=== PATIENT | female | born 1960 | race Caucasian/White ===

== ENCOUNTER 2019-10-05 10:25 | Inpatient (IN) | payer MEDICAID, SELFPAY ==
[2019-10-05] VITALS (10 sets, daily range): BP systolic 106–148; BP diastolic 63–82; PULSE 86–104; RESP 16–20; TEMP 36.6–36.9; O2SAT 90–95; BMI 41.5
--- NOTE | 2019-10-05 10:35 | CTR_ITS ---
PROCEDURE INFORMATION: Exam: CT Abdomen And Pelvis With Contrast Exam date and time: 10/05/2019 10:54 AM Age: 59 years old Clinical indication: Abdominal pain; Additional info: Ascities, abdominal pain, esld TECHNIQUE: Imaging protocol: Computed tomography of the abdomen and pelvis with intravenous contrast. Radiation optimization: All CT scans at this facility use at least one of these dose optimization techniques: automated exposure control; mA and/or kV adjustment per patient size (includes targeted exams where dose is matched to clinical indication); or iterative reconstruction. Contrast material: OMNI 300; Contrast volume: 95 ml; Contrast route: INTRAVENOUS (IV); COMPARISON: No relevant prior studies available. RADIATION DOSE METRICS: Total DLP (mGy-cm): 1729.74 FINDINGS: Liver: Lobulated liver consistent with cirrhosis. Gallbladder and bile ducts: The gallbladder has been removed. Pancreas: Normal. No ductal dilation. Spleen: Spleen is enlarged measuring 18.7 cm. Adrenals: There is a 16 mm nonspecific left adrenal nodule. 18 mm nonspecific right adrenal nodule. Kidneys and ureters: Normal. No hydronephrosis. Stomach and bowel: Unremarkable. No obstruction. No mucosal thickening. Appendix: No evidence of appendicitis. Intraperitoneal space: There is a large amount of ascites in the abdomen/pelvis. Vasculature: There are varicosities in the abdomen consistent with portal venous hypertension. Calcified plaque is present within multiple vascular structures. Lymph nodes: Unremarkable. No enlarged lymph nodes. Bladder: Unremarkable as visualized. Reproductive: Unremarkable as visualized. Bones/joints: Unremarkable. No acute fracture. Soft tissues: Soft tissue anasarca. There are benign-appearing soft tissue calcifications. Small fat containing umbilical hernia. There are postoperative changes in the ventral abdominal wall. CT/CT abdomen pelvis w con* [id number] IMPRESSION: 1. Cirrhotic liver with splenomegaly consistent with portal venous hypertension. There is a large amount of ascites in the abdomen and soft tissue anasarca. 2. Nonspecific bilateral adrenal nodules.Consider 12 month follow-up adrenal CT. ([place], ACR White Paper, 2017) Radiation Dose CTDIVOL = (mGy): DLP = 1729.74 (mGy-cm)
--- NOTE | 2019-10-05 10:38 | W.ED.ABDPA2 ---
HPI - Abdominal Pain General: Chief Complaint: Abdominal Pain Stated Complaint: ABD PAIN Time Seen by Provider: 10/05/19 10:35 History of Present Illness: HPI narrative: 59-year-old female patient presents to the emergency department via EMS with 1 to 2-week history of worsening abdominal pain. History of hepatitis C with cirrhosis. 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 Recently relocated to the area and has not established care here. She reports lives with family. Has experienced increased abdominal girth that has not responded to increase Lasix use. She reports nausea with increased abdominal girth. She denies fever chills. Denies diarrhea. MD elicited complaint: abdominal pain Pertinent past history: other (Hepatitis C, cirrhosis) Onset (ago): week(s) (1 to 2 weeks) Pain Consistency: constant Location: Diffuse Severity: moderate Quality: fullness and dull Exacerbating factors: movement Associated Symptoms: Reports nausea, poor appetite and vomiting; Denies chills, coffee ground emesis, dysuria, fever(s) and hematemesis Review of Systems General: Reports: 10 or more systems reviewed and unremarkable except in HPI and below Const: Denies: fever(s), chills or diaphoresis Eyes: Denies: blurry vision or eye redness ENMT: Denies: throat pain, dental pain or disequilibrium Card: Denies: chest pain, palpitations or irregular heart rhythm Resp: Reports: dyspnea; Denies: productive cough, non-productive cough or wheezing GI: Reports: abdominal pain, nausea, vomiting and early satiety; Denies: hematemesis or coffee ground emesis : Denies: difficulty voiding or dysuria Musc: Denies: back pain Skin/Breast: Denies: rash or pruritus Neuro: Denies: headache(s), weakness in extremities or behavioral changes Ryan/Lymph: Denies: easy bruising PFSH ED PFSH: Medical History (Updated 10/05/19 @ 14:54 by Mike Alatorre MD) Cirrhosis of liver COPD (chronic obstructive pulmonary disease) Diabetes Liver abscess via umbilicus Seizure Surgical History (Updated 10/05/19 @ 14:49 by Mike Alatorre MD) History of colonoscopy History of laparoscopic cholecystectomy Hx of appendectomy Family History (Updated 10/05/19 @ 14:50 by Mike Alatorre MD) Other Diabetes Social History (Updated 10/05/19 @ 14:50 by Mike lAatorre MD) Smoking and tobacco status: current every day smoker Alcohol intake: former Substance/Drug Use: never Physical Exam Const: COMMON NORMALS: patient oriented x3 and alert GENERAL APPEARANCE: cooperative and anxious NUTRITIONAL APPEARANCE: obese HENMT: COMMON NORMALS: normocephalic, Normal external nose present and moist oral mucous membranes HEAD & SCALP: normocephalic NOSE: Normal external nose present Eye: COMMON NORMALS: Equal, round and reactive pupils present, EOMs intact bilaterally and negative for conjunctivae normal GENERAL EYE: appearance normal, both eyes and all related structures CONJUNCTIVA: No conjunctivae normal and Yes conjunctival abnormal (Jaundice) SCLERA: scleral abnormal (Jaundice) PUPIL: Yes Equal, round and reactive pupils present Neck/C-Spine: COMMON NORMALS: full ROM and no lymphadenopathy GENERAL: Yes normal visual inspection and Yes trachea midline CERVICAL SPINE: Yes cervical ROM normal Lymph: LYMPHATIC: no lymphadenopathy noted Chest: COMMONS NORMALS: normal inspection of the chest Resp: COMMON NORMALS: normal respiratory effort and clear to auscultation bilaterally AUSCULTATION: clear to auscultation bilaterally Cardio: COMMON NORMALS: regular rhythm, S1 normal heart sound present and S2 normal heart sound present RHYTHM: regular rhythm HEART SOUNDS: S1 normal heart sound present and S2 normal heart sound present GI: INSPECTION: Yes Abdominal wall edema, Yes Anasarca, Yes abdominal distension, Yes Fluid wave present and No GI erythema present AUSCULTATION: Yes Hypoactive bowel sounds present PALPATION: Yes Tenderness to palpation present (GI) (Diffuse) and Yes Hepatomegaly present PERCUSSION: Fluid wave present : COMMON NORMALS: Yes no CVA tenderness BLADDER/KIDNEY EXAM: Yes no CVA tenderness Back/Pelvis: COMMON NORMALS: no CVA tenderness and thoracic and lumbar spine normal to inspection Extremity: COMMON NORMALS: normal to inspection and capillary refill normal Neuro: COMMON NORMALS: patient oriented x3 and no focal motor deficits SENSORIUM/ORIENTATION: Yes alert Psych: COMMON NORMALS: mental status grossly normal, Normal thought process present and cooperative ACTIVITY/MOTOR BEHAVIOR: Yes appropriate eye contact THOUGHT PROCESS: Normal thought process present Skin: COMMON NORMALS: no rashes or lesions noted and turgor normal GENERAL SKIN EXAM: no rashes or lesions noted and turgor normal Course ED course: Case discussed with Dr. Jose Alberto -patient will need admission. Transfer of care for admission orders. Vital Signs: Vital signs: Vital Signs Temperature 98.2 F 10/05/19 15:38 Pulse Rate 86 10/05/19 15:38 Respiratory Rate 20 H 10/05/19 15:38 Blood Pressure 148/75 10/05/19 15:38 Pulse Oximetry 91 10/05/19 15:38 MDM - Abdominal Pain Differential Diagnosis: Differential diagnosis abdominal pain: Likely diverticulitis and pancreatitis Lab Data: Labs: Lab Results 10/05/19 10/05/19 10/05/19 Range/Units 10:46 10:50 10:50 WBC 7.8 (4.0-10.0) 10^3/ uL RBC 4.28 (4.1-5.3) 10^6/u L Hgb 13.0 (11.5-15.3) g/dL Hct 40.7 (37.0-47.0) % MCV 95.1 (81-99) fL MCH 30.4 (28.0-34.0) pg MCHC 31.9 (30.0-36.0) g/dL RDW 15.5 H (12.1-15.1) % Plt Count 82 L (130-400) 10^3/c mm MPV 10.8 H (7.4-10.4) fL Neut % (Auto) 83.0 % Lymph % (Auto) 4.2 % Brewster % (Auto) 9.0 % Eos % (Auto) 2.1 % Baso % (Auto) 0.8 % Neut # (Auto) 6.47 (1.8-7.7) 10^3/u L Lymph # (Auto) 0.3 L (0.8-4.8) 10^3/u L Brewster # (Auto) 0.7 (0.2-0.9) 10^3/u L Eos # (Auto) 0.2 (0.0-0.8) 10^3/u L Baso # (Auto) 0.1 (0.0-0.1) 10^3/u L Nucleated RBC % (a uto) 0 % Nucleated RBCs # 0.0 /100WBC PT (12.1-14.9) SECO NDS INR (0.8-1.2) APTT (23.9-36.7) SECO NDS Sodium (136-145) mmol/L Potassium (3.5-5.1) mmol/L Chloride (98-107) mmol/L Carbon Dioxide (22-29) mmol/L Anion Gap (5-19) BUN (6-20) mg/dL Creatinine (0.5-0.9) mg/dL GFR Calculation (90-130) mL/min Glucose (65-115) mg/dL Calculated Osmolal ity (285-295) mOsm/k g Lactate (0.5-2.2) mmol/L Calcium (8.5-10.5) mg/dL Total Bilirubin (0.15-1.2) mg/dL AST (0-32) U/L ALT (0-33) U/L Alkaline Phosphata se (35-105) IU/L Ammonia 65 H (11-51) umol/L Total Protein (6.6-8.7) g/dL Albumin (3.5-5.2) g/dL Globulin (1.3-4.6) g/dL Lipase (13-60) U/L Urine Color Yellow (Yellow) Urine Appearance Clear (CLEAR) Urine pH 7 (5-7) Ur Specific Gravit y 1.005 (1.005-1.030) Urine Protein Neg (Negative) Urine Glucose (UA) Norm (Normal) Urine Ketones Negative (Negative) Urine Blood Neg (Negative) Urine Nitrate Negative (Negative) Urine Bilirubin Neg (NEGATIVE) Urine Urobilinogen Norm (Negative) mg/dL Ur Leukocyte Jailene ase Negative (Negative) 10/05/19 10/05/19 10/05/19 Range/Units 10:50 10:50 10:50 WBC (4.0-10.0) 10^3/ uL RBC (4.1-5.3) 10^6/u L Hgb (11.5-15.3) g/dL Hct (37.0-47.0) % MCV (81-99) fL MCH (28.0-34.0) pg MCHC (30.0-36.0) g/dL RDW (12.1-15.1) % Plt Count (130-400) 10^3/c mm MPV (7.4-10.4) fL Neut % (Auto) % Lymph % (Auto) % Brewster % (Auto) % Eos % (Auto) % Baso % (Auto) % Neut # (Auto) (1.8-7.7) 10^3/u L Lymph # (Auto) (0.8-4.8) 10^3/u L Brewster # (Auto) (0.2-0.9) 10^3/u L Eos # (Auto) (0.0-0.8) 10^3/u L Baso # (Auto) (0.0-0.1) 10^3/u L Nucleated RBC % (a uto) % Nucleated RBCs # /100WBC PT 18.50 H (12.1-14.9) SECO NDS INR 1.48 H (0.8-1.2) APTT 34.2 (23.9-36.7) SECO NDS Sodium 128 L (136-145) mmol/L Potassium 4.3 (3.5-5.1) mmol/L Chloride 99 (98-107) mmol/L Carbon Dioxide 20 L (22-29) mmol/L Anion Gap 13.3 (5-19) BUN 10 (6-20) mg/dL Creatinine 1.2 H (0.5-0.9) mg/dL GFR Calculation 46.3 L (90-130) mL/min Glucose 203 H (65-115) mg/dL Calculated Osmolal ity 268 L (285-295) mOsm/k g Lactate 2.2 (0.5-2.2) mmol/L Calcium 8.3 L (8.5-10.5) mg/dL Total Bilirubin 5.3 H (0.15-1.2) mg/dL AST 40 H (0-32) U/L ALT 28 (0-33) U/L Alkaline Phosphata se 222 H (35-105) IU/L Ammonia (11-51) umol/L Total Protein 5.7 L (6.6-8.7) g/dL Albumin 2.7 L (3.5-5.2) g/dL Globulin 3.0 (1.3-4.6) g/dL Lipase 27 (13-60) U/L Urine Color (Yellow) Urine Appearance (CLEAR) Urine pH (5-7) Ur Specific Gravit y (1.005-1.030) Urine Protein (Negative) Urine Glucose (UA) (Normal) Urine Ketones (Negative) Urine Blood (Negative) Urine Nitrate (Negative) Urine Bilirubin (NEGATIVE) Urine Urobilinogen (Negative) mg/dL Ur Leukocyte Jailene ase (Negative) Imaging Data ^: CT Abd/Pel: Radiologist's impression: [facility] [address] [place] [address] CT Scan Report Signed Patient: Brenna Reyes #: [id number] : 1960Acct#:[id number] Age/Sex: 59 / FADM Date: 10/05/19 Loc: ERRoom/Bed: Attending Dr: Ordering Provider/Ordering MD: Barb Patton Date of Service: 10/05/19 Procedure(s): CT abdomen pelvis w con* [id number] Accession Number(s): [id number] Report Number: [id number] PROCEDURE INFORMATION: Exam: CT Abdomen And Pelvis With Contrast Exam date and time: 10/05/2019 10:54 AM Age: 59 years old Clinical indication: Abdominal pain; Additional info: Ascities, abdominal pain, esld TECHNIQUE: Imaging protocol: Computed tomography of the abdomen and pelvis with intravenous contrast. Radiation optimization: All CT scans at this facility use at least one of these dose optimization techniques: automated exposure control; mA and/or kV adjustment per patient size (includes targeted exams where dose is matched to clinical indication); or iterative reconstruction. Contrast material: OMNI 300; Contrast volume: 95 ml; Contrast route: INTRAVENOUS (IV); COMPARISON: No relevant prior studies available. RADIATION DOSE METRICS: Total DLP (mGy-cm): 1729.74 FINDINGS: Liver: Lobulated liver consistent with cirrhosis. Gallbladder and bile ducts: The gallbladder has been removed. Pancreas: Normal. No ductal dilation. Spleen: Spleen is enlarged measuring 18.7 cm. Adrenals: There is a 16 mm nonspecific left adrenal nodule. 18 mm nonspecific right adrenal nodule. Kidneys and ureters: Normal. No hydronephrosis. Stomach and bowel: Unremarkable. No obstruction. No mucosal thickening. Appendix: No evidence of appendicitis. Intraperitoneal space: There is a large amount of ascites in the abdomen/pelvis. Vasculature: There are varicosities in the abdomen consistent with portal venous hypertension. Calcified plaque is present within multiple vascular structures. Lymph nodes: Unremarkable. No enlarged lymph nodes. Bladder: Unremarkable as visualized. Reproductive: Unremarkable as visualized. Bones/joints: Unremarkable. No acute fracture. Soft tissues: Soft tissue anasarca. There are benign-appearing soft tissue calcifications. Small fat containing umbilical hernia. There are postoperative changes in the ventral abdominal wall. CT/CT abdomen pelvis w con* [id number] IMPRESSION: 1. Cirrhotic liver with splenomegaly consistent with portal venous hypertension. There is a large amount of ascites in the abdomen and soft tissue anasarca. 2. Nonspecific bilateral adrenal nodules.Consider 12 month follow-up adrenal CT. ([facility] White [facility], 2017) Radiation Dose CTDIVOL = (mGy): DLP = 1729.74 (mGy-cm) Dictated By:Armida Williamson MD Signed By:Armida Williamson MDSigned Date/Time:10/05/19 1150 CXR: Radiologist's impression: [place] [address] XRay Report Signed Patient: Brenna Reyes #: [id number] : 1960Acct#:[id number] Age/Sex: 59 / FADM Date: 10/05/19 [facility]: Attending Dr: Ordering Provider/Ordering MD: Barb Patton Date of Service: 10/05/19 Procedure(s): XR chest 1V portable [id number] Accession Number(s): [id number] Report Number: [id number] PROCEDURE INFORMATION: Exam: XR Chest, 1 View Exam date and time: 10/05/2019 12:18 PM Age: 59 years old Clinical indication: Shortness of breath; Additional info: SOB TECHNIQUE: Imaging protocol: XR of the chest Views: 1 view. COMPARISON: No relevant prior studies available. FINDINGS: Lungs: Unremarkable. No consolidation. Pleural space: Unremarkable. No pleural effusion. No pneumothorax. Heart/Mediastinum: Unremarkable. No cardiomegaly. Bones/joints: Unremarkable. Soft tissues: Heart size not optimally evaluated with a single AP view of the chest. XR/XR chest 1V portable [id number] IMPRESSION: No acute findings. Dictated By:Armida Williamson MD Discharge Plan Discharge Admit Provider: Mike Alatorre Discharge Date/Time: 10/05/19 15:53 Coding Level of Care Code ED Landscape Painter for Chg Fwd Exam Comprehensive
[2019-10-05 11:00] LABS: Add Urine Microscopic? NO
[2019-10-05 11:01] LABS: Basophils # 0.1 10^3/uL (0.0-0.1); Basophils % 0.8 %; Eosinophils # 0.2 10^3/uL (0.0-0.8); Eosinophils % 2.1 %; Hematocrit 40.7 % (37.0-47.0); Lymphocytes # 0.3 10^3/uL (0.8-4.8); Lymphocytes % 4.2 %; Mean Corpuscular HGB Conc 31.9 g/dL (30.0-36.0); Mean Corpuscular Hemoglobin 30.4 pg (28.0-34.0); Mean Corpuscular Volume 95.1 fL (81-99); Mean Platelet Volume 10.8 fL (7.4-10.4); Monocytes # 0.7 10^3/uL (0.2-0.9); Neutrophils # 6.47 10^3/uL (1.8-7.7); Nucleated Red Blood Cells % 0 %; Platelet Count 82 10^3/cmm (130-400); Red Blood Count 4.28 10^6/uL (4.1-5.3); Red Cell Distribution Width 15.5 % (12.1-15.1); White Blood Count 7.8 10^3/uL (4.0-10.0)
[2019-10-05] MEDS: morphine 4 mg/mL SDV 1 mL IVP (11:02)
[2019-10-05] MEDS: iohexol 300 mg/mL 100 mL Btl IV (11:05)
[2019-10-05 11:07] LABS: Bilirubin Urine Neg (NEGATIVE); Blood Urine Neg (Negative); Glucose Urine UA Norm (Normal); Ketones Urine Negative (Negative); Leukocyte Esterase Urine Negative (Negative); Nitrate Urine Negative (Negative); Protein Urine Neg (Negative); Specific Gravity, Urine 1.005 (1.005-1.030); Urine Appearance Clear (CLEAR); Urine Color Yellow (Yellow); Urobilinogen Urine Norm (Negative); pH Urine 7 (5-7)
[2019-10-05 11:11] LABS: INR 1.48 (0.8-1.2)
[2019-10-05 11:12] LABS: Partial Thromboplastin Time 34.2 SECONDS (23.9-36.7)
[2019-10-05 11:15] LABS: Ammonia 65 umol/L (11-51); Lactate (Lactic Acid level) 2.2 mmol/L (0.5-2.2)
[2019-10-05 11:16] LABS: Alanine Aminotransferase 28 U/L (0-33); Albumin Level 2.7 g/dL (3.5-5.2); Alkaline Phosphatase 222 IU/L (35-105); Anion Gap 13.3 (5-19); Aspartate Amino Transferase 40 U/L (0-32); Blood Urea Nitrogen 10 mg/dL (6-20); Calcium 8.3 mg/dL (8.5-10.5); Carbon Dioxide 20 mmol/L (22-29); Chloride 99 mmol/L (98-107); Glomerular Filtration Rate 46.3 mL/min (90-130); Glucose 203 mg/dL (65-115); Lipase 27 U/L (13-60); Osmolality Calculated 268 mOsm/kg (285-295); Potassium 4.3 mmol/L (3.5-5.1); Sodium 128 mmol/L (136-145); Total Bilirubin 5.3 mg/dL (0.15-1.2); Total Protein 5.7 g/dL (6.6-8.7)
--- NOTE | 2019-10-05 12:18 | XRR_ITS ---
PROCEDURE INFORMATION: Exam: XR Chest, 1 View Exam date and time: 10/05/2019 12:18 PM Age: 59 years old Clinical indication: Shortness of breath; Additional info: SOB TECHNIQUE: Imaging protocol: XR of the chest Views: 1 view. COMPARISON: No relevant prior studies available. FINDINGS: Lungs: Unremarkable. No consolidation. Pleural space: Unremarkable. No pleural effusion. No pneumothorax. Heart/Mediastinum: Unremarkable. No cardiomegaly. Bones/joints: Unremarkable. Soft tissues: Heart size not optimally evaluated with a single AP view of the chest. XR/XR chest 1V portable [id number] IMPRESSION: No acute findings.
[2019-10-05] MEDS: HYDROmorphone 1 mg/mL INJ 1 mL 0.5 MG IVP (12:32)
--- NOTE | 2019-10-05 14:43 | PM.HP ---
Providers/Chief Complaint Chief Complaint: ABD PAIN History of Present Illness Kavitha Reyes is a 59 year old female with a past medical history of hepatitis C status post treatment, history of liver cirrhosis, history of alcohol abuse and on recovery, history of insulin-dependent type 2 diabetes mellitus, who presents to [facility] due to complaints of abdominal distention and pain. 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 Patient states that she has not seen a physician in over 6 months, patient states that for her liver cirrhosis, she has been relatively stable, using her Lasix and spironolactone. Patient states over the last 24 hours, she is developed significant abdominal distention, abdominal pain, she states that is never been this bad, she is never had a paracentesis, no fevers, no chills, no nausea, no vomiting, has significant abdominal pain distention, no episodes of confusion. Review of Systems Const: Denies: fever(s), chills, fatigue or malaise Eyes: Denies: change in vision or blurry vision ENMT: Denies: nasal congestion Card: Denies: chest pain or palpitations Resp: Denies: dyspnea, productive cough, non-productive cough or wheezing GI: Reports: abdominal pain; Denies: nausea, vomiting, hematemesis, diarrhea, constipation, hematochezia or melena : Denies: flank pain, dysuria or urinary frequency Musc: Denies: neck pain or back pain Skin/Breast: Denies: rash Neuro: Denies: headache(s), dizziness or vertigo Psych: Denies: anxiety or depression Endo: Denies: polyuria or polydipsia Medications/Allergies Home Medications Medication Instructions Recorded Confirmed Last Taken Type furosemide [Lasix] 40 mg PO DAILY 10/05/19 10/05/19 10/05/19 History hydroxyzine HCl 25 - 50 mg PO BEDTIME 10/05/19 10/05/19 10/04/19 History insulin aspart U-100 [Novolog 20 unit SUBCUT BID 10/05/19 10/05/19 10/05/19 History Flexpen U-100 Insulin] insulin detemir U-100 [Levemir 65 unit SUBCUT BID 10/05/19 10/05/19 10/05/19 History FlexTouch U-100 Insuln] magnesium oxide [MagOx] 400 mg PO DAILY 10/05/19 10/05/19 10/04/19 History ondansetron HCl [Zofran] 4 mg PO Q6H PRN 10/05/19 10/05/19 Unknown History potassium chloride 20 meq PO DAILY 10/05/19 10/05/19 10/05/19 History spironolactone 50 mg PO BID 10/05/19 10/05/19 10/05/19 History tizanidine 2 mg PO BEDTIME 10/05/19 10/05/19 10/04/19 History Allergies Allergy/AdvReac Type Severity Reaction Status Date / Time celecoxib [From Celebrex] Allergy Unknown Verified 10/05/19 10:38 chlorpromazine Allergy Unknown Verified 10/05/19 10:38 [From Thorazine] citalopram [From Celexa] Allergy Unknown Verified 10/05/19 10:38 codeine Allergy Unknown Verified 10/05/19 10:38 ketorolac [From Toradol] Allergy Unknown Verified 10/05/19 10:38 NSAIDS (Non-Steroidal Allergy Unknown Verified 10/05/19 10:38 Anti-Inflamma tramadol Allergy ADR-Halluci Verified 10/05/19 10:38 nating PFSH Acute PFSH: Medical History (Updated 10/05/19 @ 14:54 by Mike Alatorre MD) Cirrhosis of liver COPD (chronic obstructive pulmonary disease) Diabetes Liver abscess via umbilicus Seizure Surgical History (Updated 10/05/19 @ 14:49 by Mike Alatorre MD) History of colonoscopy History of laparoscopic cholecystectomy Hx of appendectomy Family History (Updated 10/05/19 @ 14:50 by Mike Alatorre MD) Other Diabetes Social History (Updated 10/05/19 @ 14:50 by Mike Alatorre MD) Smoking and tobacco status: current every day smoker Alcohol intake: former Substance/Drug Use: never Vitals/I&O/Wt Last Vital Signs Temp 98.5 F 10/05/19 10:35 Pulse 104 H 10/05/19 10:35 Resp 18 10/05/19 12:32 BP 143/63 10/05/19 10:35 Pulse Ox 93 10/05/19 10:35 Weight last 48 hrs Weight 113.398 kg Physical Exam Const: COMMON NORMALS: no acute distress and patient oriented x3 GENERAL APPEARANCE: cooperative and comfortable HENMT: COMMON NORMALS: normocephalic HEAD & SCALP: normocephalic Eye: COMMON NORMALS: Equal, round and reactive pupils present, EOMs intact bilaterally and no papilledema GENERAL EYE: appearance normal, both eyes and all related structures PUPIL: Yes Equal, round and reactive pupils present DIRECT OPHTHALMOSCOPY: Yes no papilledema Neck/C-Spine: COMMON NORMALS: full ROM, no lymphadenopathy, no JVD and Thyroid normal THYROID: Thyroid normal Lymph: LYMPHATIC: no lymphadenopathy noted Resp: COMMON NORMALS: normal respiratory effort, No retractions, No use of accessory muscles and clear to auscultation bilaterally AUSCULTATION: clear to auscultation bilaterally Cardio: COMMON NORMALS: no JVD, regular rate, regular rhythm, S1 normal heart sound present, S2 normal heart sound present, No gallops present (Cardio), No clicks present (Cardio) and No murmurs present (Cardio) RATE: regular rate RHYTHM: regular rhythm HEART SOUNDS: S1 normal heart sound present and S2 normal heart sound present GI: COMMON NORMALS: non-tender and No hepatosplenomegaly present INSPECTION: Yes normal to inspection, Yes Abdominal wall edema and Yes abdominal distension AUSCULTATION: Yes normoactive bowel sounds PALPATION: Yes Soft to palpation, No Tenderness to palpation present (GI), No Guarding due to palpation present (GI), No Rigid due to palpation, No No hepatosplenomegaly present and No Rebound tenderness present PERCUSSION: tympanic to percussion Extremity: COMMON NORMALS: normal to inspection, full ROM and no pedal edema NARRATIVE EXTREMITY EXAM: Digital clubbing Neuro: COMMON NORMALS: patient oriented x3, CN's II-XII intact bilaterally, moves all extremities and no focal motor deficits Psych: COMMON NORMALS: mental status grossly normal, Normal thought process present and cooperative THOUGHT PROCESS: Normal thought process present Data : 10/05/19 10:50 10/05/19 10:50 A&P Assessment and plan (1) Cirrhosis of liver: -Patient has been treated, and cured of hepatitis C, history of alcohol abuse in the past, sober for many years -CT scan abdomen and plevis shows Cirrhotic liver with splenomegaly consistent with portal venous hypertension. There is a large amount of ascites in the abdomen and soft tissue anasarca. -Ammonia level 65, bili 5.3, sodium 128, platelet count 82 -Patient has seen transplant physician at [facility], not sure if she is on the transplant list -Now presents with abdominal pain, distention, concerning for large liver ascites Plan: -Patient needs a paracentesis, however we do not have interventional radiology, will plan on consulting interventional radiology tomorrow morning for paracentesis -I feel that the clinical suspicion for spontaneous bacterial peritonitis is low, but she does have abdominal pain and distention -Will hold off on antibiotic treatment, unless something changes the next 24 hours, will await for paracentesis culture, Gram stain, LDH before initiating antibiotics if required -Continue Lasix and spironolactone -Full code SCDs for DVT prophylaxis -Patient will require local primary care physician Status: Acute (2) Thrombocytopenia: -Platelet count 82,000, likely secondary to liver cirrhosis Status: Acute (3) Hyponatremia: -Likely related to liver cirrhosis, hypovolemic hyponatremia Status: Acute (4) Hyperbilirubinemia: -Bili 5.3, likely related to liver cirrhosis Status: Acute (5) Hyperammonemia: -Related to liver cirrhosis, ammonia levels 65 -Start lactulose Status: Acute (6) Portal hypertension: Status: Acute (7) Insulin dependent type 2 diabetes mellitus: -Patient has not been using any insulin therapy for the last 6 months -Start on low-dose sliding scale, determine insulin needs based on that Status: Acute (8) COPD (chronic obstructive pulmonary disease): Status: Acute (9) Ascites of liver: Status: Acute Attestations Medical Necessity Statement*: Patient requires hospitalization, outpatient with observation, for liver cirrhosis, ascites, concerns for SBP Coding Level of Care Code Acute Obstetrics Gyn Physician for [facility] Fwd Diagnoses Cirrhosis of liver K74.60 Thrombocytopenia D69.6 Hyponatremia E87.1 Hyperbilirubinemia E80.6 Hyperammonemia E72.20 Portal hypertension K76.6 Insulin dependent type 2 diabetes mellitus E11.9; Z79.4 COPD (chronic obstructive pulmonary disease) J44.9 Ascites of liver R18.8
[2019-10-05 17:00] LABS: Procalcitonin 0.09 ng/mL (0-0.5)
[2019-10-05 17:01] LABS: Thyroid Stimulating Hormone 8.24 uIU/mL (0.27-4.20)
[2019-10-05] MEDS: spironolactone 25 mg Tablet 50 MG PO (17:02)
[2019-10-05] MEDS: lactulose oral liq 20 gm/30 mL UDC PO (17:02)
[2019-10-05] MEDS: morphine 4 mg/mL SDV 1 mL 2 MG IVP ×2 (17:03→21:24)
[2019-10-05 17:11] LABS: C Reactive Protein 27.6 mg/L (0.0-4.9)
[2019-10-05] MEDS: hyDROXYzine 25 mg Capsule PO (21:28)
[2019-10-05] MEDS: tizanidine 4 mg Tablet 2 MG PO (21:28)
[2019-10-06] VITALS (11 sets, daily range): BP systolic 91–131; BP diastolic 56–74; PULSE 70–92; RESP 16–22; TEMP 36.6–37.1; O2SAT 90–98
[2019-10-06 03:40] LABS: Basophils # 0.1 10^3/uL (0.0-0.1); Basophils % 0.5 %; Eosinophils # 0.3 10^3/uL (0.0-0.8); Eosinophils % 3.3 %; Hematocrit 33.9 % (37.0-47.0); Lymphocytes # 0.4 10^3/uL (0.8-4.8); Lymphocytes % 4.7 %; Mean Corpuscular HGB Conc 32.4 g/dL (30.0-36.0); Mean Corpuscular Hemoglobin 30.9 pg (28.0-34.0); Mean Corpuscular Volume 95.2 fL (81-99); Mean Platelet Volume 10.5 fL (7.4-10.4); Monocytes # 0.8 10^3/uL (0.2-0.9); Monocytes % 8.5 %; Neutrophils # 7.69 10^3/uL (1.8-7.7); Neutrophils % 81.9 %; Nucleated Red Blood Cells % 0 %; Platelet Count 68 10^3/cmm (130-400); Red Blood Count 3.56 10^6/uL (4.1-5.3); Red Cell Distribution Width 15.6 % (12.1-15.1); White Blood Count 9.4 10^3/uL (4.0-10.0)
[2019-10-06 03:50] LABS: INR 1.71 (0.8-1.2)
[2019-10-06 04:01] LABS: Alanine Aminotransferase 24 U/L (0-33); Albumin Level 2.5 g/dL (3.5-5.2); Alkaline Phosphatase 169 IU/L (35-105); Anion Gap 9.7 (5-19); Aspartate Amino Transferase 32 U/L (0-32); Blood Urea Nitrogen 10 mg/dL (6-20); Calcium 7.5 mg/dL (8.5-10.5); Carbon Dioxide 22 mmol/L (22-29); Chloride 100 mmol/L (98-107); Globulin 2.5 g/dL (1.3-4.6); Glomerular Filtration Rate 64.5 mL/min (90-130); Glucose 161 mg/dL (65-115); Magnesium 1.8 mg/dL (1.7-2.3); Osmolality Calculated 263 mOsm/kg (285-295); Phosphorus 2.9 mg/dL (2.5-4.5); Potassium 4.7 mmol/L (3.5-5.1); Sodium 127 mmol/L (136-145); Total Bilirubin 5.3 mg/dL (0.15-1.2)
[2019-10-06 04:23] LABS: Estmated Average Glucose 111; Hemoglobin A1C 5.5 % (4.0-6.0)
[2019-10-06] MEDS: lactulose oral liq 20 gm/30 mL UDC PO ×2 (06:29→11:14)
[2019-10-06] MEDS: magnesium oxide 400 mg tablet PO (08:31)
[2019-10-06] MEDS: potassium chloride ER 10 mEq Tablet 20 MEQ PO (08:31)
[2019-10-06] MEDS: FUROsemide 40 mg Tablet PO (08:31)
[2019-10-06] MEDS: spironolactone 25 mg Tablet 50 MG PO ×2 (08:32→17:24)
[2019-10-06] MEDS: morphine 4 mg/mL SDV 1 mL 2 MG IVP ×2 (10:49→17:48)
--- NOTE | 2019-10-06 11:57 | PC.RESP ---
Smoking Cessation and Pulmonary Rehab information sent to patient.
--- NOTE | 2019-10-06 13:15 | US_ITS ---
WS: [id number] ULTRASOUND-GUIDED THERAPEUTIC AND DIAGNOSTIC PARACENTESIS Procedure, risks, and complications have been explained to the patient. Consent is obtained. Utilizing aseptic technique and 1% buffered lidocaine, a small dermatome was made through which a 5 F rench Yueh catheter was inserted. Approximately 4100 ml of cloudy yellow peritoneal fluid was obtaine d without difficulty. No complications encountered. Specimen collected for analysis as requested. US/US paracentesis abd w [id number] IMPRESSION: Uncomplicated paracentesis yielding 4100 ml of peritoneal fluid. Specimen collected for analysis as requested.
--- NOTE | 2019-10-06 13:15 | PM.PN ---
Subjective Subjective: Interval history: yesetrday's notes reveiwed, IR Paracentesis has been ordered. Medications: Reviewed: Yes Vitals/I&O/Wt Last Vital Signs Temp 98.1 F 10/06/19 11:25 Pulse 90 10/06/19 11:25 Resp 20 H 10/06/19 11:25 BP 118/62 10/06/19 11:25 Pulse Ox 94 10/06/19 11:25 10/05/19 10/06/19 10/06/19 22:59 06:59 14:59 Intake Total 800 / 800 Output Total 300 / 300 Balance 500 / 500 Weight last 48 hrs Weight 113.398 kg Physical Exam Narrative: EXAM NARRATIVE: GEN: Awake, alert and oriented, no acute distress CVS: S1S2 N RS: CTA B/L except crackles over RUL Abd: grossly distended DIRECTOR OF DANCE: no focal neuro deficits Data : 10/06/19 03:07 10/06/19 03:07 A&P Assessment and plan (1) Cirrhosis of liver: -Patient has been treated, and cured of hepatitis C, history of alcohol abuse in the past, sober for many years -CT scan abdomen and plevis shows Cirrhotic liver with splenomegaly consistent with portal venous hypertension. There is a large amount of ascites in the abdomen and soft tissue anasarca. Ordered for IR paracentesis today -Ammonia level 65, bili 5.3, sodium 128, platelet count 82 -Patient has seen transplant physician at [facility], not sure if she is on the transplant list low suspicion for SBP -Will hold off on antibiotic treatment -Continue Lasix and spironolactone -Full code SCDs for DVT prophylaxis -Patient will require local primary care physician, will check If Dr. fregoso available to take on care for hep C and cirrhosis Status: Acute (2) Thrombocytopenia: -Platelet count 82,000, likely secondary to liver cirrhosis Status: Acute (3) Hyponatremia: -Likely related to liver cirrhosis, hypovolemic hyponatremia Status: Acute (4) Hyperbilirubinemia: -Bili 5.3, likely related to liver cirrhosis Status: Acute (5) Hyperammonemia: -Related to liver cirrhosis, ammonia levels 65 -Start lactulose Status: Acute (6) Portal hypertension: Status: Acute (7) Insulin dependent type 2 diabetes mellitus: -Patient has not been using any insulin therapy for the last 6 months -Start on low-dose sliding scale, determine insulin needs based on that Status: Acute (8) COPD (chronic obstructive pulmonary disease): Status: Acute (9) Ascites of liver: Status: Acute Attestations Medical Necessity Statement*: awaiting IR paracentesis Coding Level of Care Code Acute Sole Molding Machine Operator for [facility] Fwd Diagnoses Cirrhosis of liver K74.60 Thrombocytopenia D69.6 Hyponatremia E87.1 Hyperbilirubinemia E80.6 Hyperammonemia E72.20 Portal hypertension K76.6 Insulin dependent type 2 diabetes mellitus E11.9; Z79.4 COPD (chronic obstructive pulmonary disease) J44.9 Ascites of liver R18.8
[2019-10-06 14:39] LABS: Free T4 Free Thyroxine 1.02 ng/dL (0.82-1.77); T3 Free 2.6 PG/ML (2.0-4.4)
[2019-10-06 15:31] LABS: Body Fluid Polynuclear #Cells 3.508 10^3/uL; Body Fluid WBC 4020 /uL; Monocytes # Body Fluid 0.512 10^3/uL; RBC, Body Fluid 0 10^3/uL (0-0)
[2019-10-06 15:54] LABS: Apprearance, Body Fluid CLOUDY (CLEAR); Color, Body Fluid PALE YELLOW (PALE YELLOW); PATH Referral YES
[2019-10-06 16:22] LABS: Albumin Body Fluid 0.3 g/dL; Fluid Alkaline Phos. 20 IU/L; Total Protein Body Fluid 1 g/dL
[2019-10-06 16:23] LABS: Amylase Body Fluid 10 U/L; Cholesterol Body Fluid 4 mg/dL (0-200); LDH Body Fluid 54 U/L; Triglycerides Body Fluid 58 mg/dL (0-150); Uric Acid Body Fluid 5 mg/dL
--- NOTE | 2019-10-06 17:12 | PC.OT ---
OT Note: OT screen completed. Pt bed mobility, transfer to toilet with walker, grooming, and toileting where mod I to independent at this time. Pt lives at home with friends. OT not needed at this time.
[2019-10-06] MEDS: tizanidine 4 mg Tablet 2 MG PO (22:26)
[2019-10-06] MEDS: hyDROXYzine 25 mg Capsule PO (22:27)
[2019-10-07] VITALS (9 sets, daily range): BP systolic 91–130; BP diastolic 53–73; PULSE 64–88; RESP 16–22; TEMP 36.7–37; O2SAT 90–96
[2019-10-07 04:49] LABS: Basophils % 0.4 %; Eosinophils # 0.3 10^3/uL (0.0-0.8); Eosinophils % 3.4 %; Hematocrit 33.2 % (37.0-47.0); Hemoglobin 10.7 g/dL (11.5-15.3); Lymphocytes # 0.5 10^3/uL (0.8-4.8); Lymphocytes % 5.9 %; Mean Corpuscular HGB Conc 32.2 g/dL (30.0-36.0); Mean Corpuscular Hemoglobin 30.9 pg (28.0-34.0); Mean Platelet Volume 10.7 fL (7.4-10.4); Monocytes # 0.8 10^3/uL (0.2-0.9); Monocytes % 9.1 %; Neutrophils # 7.17 10^3/uL (1.8-7.7); Neutrophils % 80.2 %; Nucleated Red Blood Cells % 0 %; Platelet Count 66 10^3/cmm (130-400); Red Blood Count 3.46 10^6/uL (4.1-5.3); Red Cell Distribution Width 15.5 % (12.1-15.1); White Blood Count 8.9 10^3/uL (4.0-10.0)
[2019-10-07 05:24] LABS: Alanine Aminotransferase 21 U/L (0-33); Albumin Level 2.4 g/dL (3.5-5.2); Alkaline Phosphatase 160 IU/L (35-105); Anion Gap 10.6 (5-19); Aspartate Amino Transferase 20 U/L (0-32); Blood Urea Nitrogen 14 mg/dL (6-20); Calcium 7.7 mg/dL (8.5-10.5); Carbon Dioxide 20 mmol/L (22-29); Chloride 99 mmol/L (98-107); Globulin 2.5 g/dL (1.3-4.6); Glomerular Filtration Rate 64.5 mL/min (90-130); Glucose 183 mg/dL (65-115); Magnesium 1.9 mg/dL (1.7-2.3); Osmolality Calculated 261 mOsm/kg (285-295); Phosphorus 2.6 mg/dL (2.5-4.5); Potassium 4.6 mmol/L (3.5-5.1); Sodium 125 mmol/L (136-145); Total Bilirubin 5.7 mg/dL (0.15-1.2); Total Protein 4.9 g/dL (6.6-8.7)
[2019-10-07] MEDS: morphine 4 mg/mL SDV 1 mL 2 MG IVP (08:20)
[2019-10-07] MEDS: potassium chloride ER 10 mEq Tablet 20 MEQ PO (08:24)
[2019-10-07] MEDS: FUROsemide 40 mg Tablet PO (08:24)
[2019-10-07] MEDS: magnesium oxide 400 mg tablet PO (08:24)
[2019-10-07] MEDS: spironolactone 25 mg Tablet 50 MG PO ×2 (08:24→17:28)
--- NOTE | 2019-10-07 15:10 | P.PN_ITS ---
Subjective Subjective: Interval history: Patient complains of worsening abdominal pain today. States that he is back in spasmodic pain. Underwent therapeutic centesis yesterday. WBC count is at greater than 4000. Gram stain thus far without any organisms noted. Medications: Reviewed: Yes Vitals/I&O/Wt Last Vital Signs Temp 98.0 F 10/07/19 11:34 Pulse 73 10/07/19 11:34 Resp 22 H 10/07/19 11:34 BP 117/71 10/07/19 11:34 Pulse Ox 91 10/07/19 11:34 10/07/19 10/07/19 10/07/19 06:59 14:59 22:59 Intake Total 120 / 1140 720 / 720 Balance 120 / 1140 720 / 720 Physical Exam Narrative: EXAM NARRATIVE: GEN: Awake, alert and oriented, no acute distress CVS: S1S2 N RS: CTA B/L Abd: Soft, grossly distended with several striate. Appears somewhat improved compared to yesterday. However today complains of discomfort to palpation. OB SCRUB TECH: no focal neuro deficits Data : 10/07/19 04:25 10/07/19 04:25 Micro: Microbiology 10/06/19 14:15 Gram Stain - Final Peritoneal Fluid A&P Assessment and plan (1) Cirrhosis of liver: -Patient has been treated for hepatitis C. Unsure of how exactly she was treated. History of alcohol abuse in the past, sober for many years. HCVRNA with a.m. labs -CT scan abdomen and plevis shows Cirrhotic liver with splenomegaly consistent with portal venous hypertension. There is a large amount of ascites in the abdomen and soft tissue anasarca. Ordered for IR paracentesis yesterday with removal of 4 L of fluid. -WBC count from the fluid significant at 4000. Given that she is complaining of some increased abdominal pain today, we will go ahead and start her on IV antibiotics for presumptive SBP. -Ammonia level 65, bili 5.3, sodium 128, platelet count 82 -Patient has seen transplant physician at [facility], not sure if she is on the transplant list low suspicion for SBP -Continue Lasix and spironolactone -States takes hydrocodone at home for the pain, will start here today. -Full code SCDs for DVT prophylaxis -Patient will require local primary care physician, follow-up has been arranged with Dr. Beckwith. Status: Acute (2) Thrombocytopenia: -Platelet count 82,000, likely secondary to liver cirrhosis Status: Acute (3) Hyponatremia: -Likely related to liver cirrhosis, hypovolemic hyponatremia Status: Acute (4) Hyperbilirubinemia: -Bili 5.3, likely related to liver cirrhosis Status: Acute (5) Hyperammonemia: -Related to liver cirrhosis, ammonia levels 65 -Start lactulose Status: Acute (6) Portal hypertension: Status: Acute (7) Insulin dependent type 2 diabetes mellitus: -Patient has not been using any insulin therapy for the last 6 months -Start on low-dose sliding scale, determine insulin needs based on that Status: Acute (8) COPD (chronic obstructive pulmonary disease): Status: Acute (9) Ascites of liver: Status: Acute Attestations Medical Necessity Statement*: Increased abdominal pain, start treatment for SBP presumptively. Coding Level of Care Code Acute Liquor Gallery Operator for [facility] Fwd Diagnoses Cirrhosis of liver K74.60 Thrombocytopenia D69.6 Hyponatremia E87.1 Hyperbilirubinemia E80.6 Hyperammonemia E72.20 Portal hypertension K76.6 Insulin dependent type 2 diabetes mellitus E11.9; Z79.4 COPD (chronic obstructive pulmonary disease) J44.9 Ascites of liver R18.8
[2019-10-07] MEDS: cefTRIAXone 1,000 MG in sodium chloride 0.9% (plus) 50 ML 100 MG IV (15:31)
[2019-10-07] MEDS: HYDROcodone-acetaminophen 5-325 mg Tablet 1 TAB PO ×2 (15:36→22:31)
--- NOTE | 2019-10-07 18:47 | PC.NURSE ---
End of Shift report. Patient is A&Ox3. Respirations even and non-labored on room air. Patient was up for discharge today but was having to much pain. Patient had 4 liters of fluid removed from her stomach yesterday to which the white count is over 4,000 and she was started on Rocephin today. Patient is now asking Hydrocodone for her pain. Patient is possibly going to be discharged tomorrow.
[2019-10-07] MEDS: hyDROXYzine 25 mg Capsule PO (22:31)
[2019-10-07] MEDS: tizanidine 4 mg Tablet 2 MG PO (22:31)
[2019-10-08] VITALS: BP 94/61; PULSE 71; RESP 16; TEMP 37.1; O2SAT 91
[2019-10-08 04:00] VITALS: BP 86/55; PULSE 54; RESP 20; TEMP 37; O2SAT 91
[2019-10-08 04:57] LABS: Basophils # 0.1 10^3/uL (0.0-0.1); Basophils % 0.8 %; Eosinophils # 0.4 10^3/uL (0.0-0.8); Eosinophils % 4.7 %; Hematocrit 31.1 % (37.0-47.0); Hemoglobin 10.2 g/dL (11.5-15.3); Lymphocytes # 0.5 10^3/uL (0.8-4.8); Lymphocytes % 7.3 %; Mean Corpuscular HGB Conc 32.8 g/dL (30.0-36.0); Mean Corpuscular Volume 94.5 fL (81-99); Mean Platelet Volume 10.8 fL (7.4-10.4); Monocytes # 0.6 10^3/uL (0.2-0.9); Monocytes % 8.4 %; Neutrophils % 77.4 %; Nucleated Red Blood Cells % 0 %; Platelet Count 65 10^3/cmm (130-400); Red Blood Count 3.29 10^6/uL (4.1-5.3); Red Cell Distribution Width 15.7 % (12.1-15.1); White Blood Count 7.4 10^3/uL (4.0-10.0)
[2019-10-08 05:23] LABS: Alanine Aminotransferase 18 U/L (0-33); Albumin Level 2.2 g/dL (3.5-5.2); Alkaline Phosphatase 148 IU/L (35-105); Anion Gap 11.8 (5-19); Aspartate Amino Transferase 18 U/L (0-32); Blood Urea Nitrogen 18 mg/dL (6-20); Calcium 7.3 mg/dL (8.5-10.5); Carbon Dioxide 22 mmol/L (22-29); Chloride 97 mmol/L (98-107); Globulin 2.4 g/dL (1.3-4.6); Glomerular Filtration Rate 51.2 mL/min (90-130); Glucose 199 mg/dL (65-115); Magnesium 1.8 mg/dL (1.7-2.3); Osmolality Calculated 264 mOsm/kg (285-295); Phosphorus 2.9 mg/dL (2.5-4.5); Potassium 4.8 mmol/L (3.5-5.1); Sodium 126 mmol/L (136-145); Total Bilirubin 3.5 mg/dL (0.15-1.2); Total Protein 4.6 g/dL (6.6-8.7)
[2019-10-08 07:33] VITALS: BP 93/54; PULSE 58; RESP 18; TEMP 36.9; O2SAT 92
[2019-10-08] MEDS: FUROsemide 40 mg Tablet PO (09:15)
[2019-10-08] MEDS: magnesium oxide 400 mg tablet PO (09:15)
[2019-10-08] MEDS: potassium chloride ER 10 mEq Tablet 20 MEQ PO (09:15)
[2019-10-08] MEDS: spironolactone 25 mg Tablet 50 MG PO (09:15)
[2019-10-08] MEDS: HYDROcodone-acetaminophen 5-325 mg Tablet 1 TAB PO ×2 (09:17→13:07)
[2019-10-08 11:14] VITALS: BP 108/60; PULSE 72; RESP 18; TEMP 36.3; O2SAT 94
--- NOTE | 2019-10-08 14:32 | P.DS_ITS ---
Discharge Providers Date of Admission: 10/07/19 13:15 Date of Discharge: October 08, 2019 Attending Provider at Admission: Mike Alatorre MD Attending Provider at Discharge: Stephanie Lock MD Diagnoses at Discharge Discharge Diagnosis (1) Cirrhosis of liver: Status: Acute (2) Thrombocytopenia: Status: Acute (3) Hyponatremia: Status: Acute (4) Hyperbilirubinemia: Status: Acute (5) Hyperammonemia: Status: Acute (6) Portal hypertension: Status: Acute (7) Insulin dependent type 2 diabetes mellitus: Status: Acute (8) COPD (chronic obstructive pulmonary disease): Status: Acute (9) Ascites of liver: Status: Acute Reason for Visit Reason for Visit: ABD PAIN Hospital Course Discharge Summary: Kavitha Reyes is a 59 year old female with a past medical history of hepatitis C status post treatment, history of liver cirrhosis, history of alcohol abuse and on recovery, history of insulin-dependent type 2 diabetes mellitus, who presented to [facility] due to complaints of abdominal distention and pain. Patient states that she has not seen a physician in over 6 months, patient states that for her liver cirrhosis, she has been relatively stable, using her Lasix and spironolactone. Patient states over the last 24 hours, she is developed significant abdominal distention, abdominal pain. She underwent US guided paracentesis with removal of >4L of peritoneal fluid. Pain did improve with the procdure, however continued to have significant tenderness and discomfort to palpation. Cell count on ascitic fluid noted to elevated, though gram stain and cx remained negatively. She is presumptively being treated for SBP with iv ceftriaxone , transitioned to po ciprofloxacin on discharge. F/up has been arranged with new PCP Dr. Beckwith. She feels improved on day of discharge. requested prescription for hydrocodone, states she was previously seeing pain management in [place] and had a contract, would like referral to pain clinic here once established with PCP. Physical Exam Narrative: EXAM NARRATIVE: GEN: Awake, alert and oriented, no acute distress CVS: S1S2 N RS: CTA B/L Abd: Soft, nt/nd , bs+ STAVE LOG CUT OFF SAW OPERATOR: no focal neuro deficits Discharge Data Data Completed and Pending: Completed Studies During Hospitalization Category Date Time Status CT abdomen pelvis w con* [id number] Urge nt Cat Scan 10/05/19 10:35 Completed XR chest 1V wander ble [id number] Stat Exams 10/05/19 12:18 Com[place] bd w [id number] Routine Ultrasound 10/06/19 13:15 Completed Pending at discharge Category Date Time Status Anaerobic Culture Routine Lab 10/05/19 16:15 Results Body Fluid Cultur e & GS Routine Lab 10/05/19 16:15 Results Hepatitis C Genot ype RNA AM LABS Lab 10/08/19 04:32 Received Hepatitis C RNA V iral Load Qnt AM L ABS Lab 10/08/19 04:32 Received Mycobacteria, Cul ture w/Fluor Routi ne Lab 10/05/19 16:15 Received Labs from last 24 hours 10/08/19 10/08/19 10/08/19 04:32 04:32 04:32 WBC 7.4 RBC 3.29 L Hgb 10.2 L Hct 31.1 L MCV 94.5 MCH 31.0 MCHC 32.8 RDW 15.7 H Plt Count 65 L MPV 10.8 H Neut % (Auto) 77.4 Lymph % (Auto) 7.3 Crook % (Auto) 8.4 Eos % (Auto) 4.7 Baso % (Auto) 0.8 Neut # (Auto) 5.70 Lymph # (Auto) 0.5 L Crook # (Auto) 0.6 Eos # (Auto) 0.4 Baso # (Auto) 0.1 Nucleated RBC % (a uto) 0 Nucleated RBCs # 0.0 Sodium 126 L Potassium 4.8 Chloride 97 L Carbon Dioxide 22 Anion Gap 11.8 BUN 18 Creatinine 1.1 H GFR Calculation 51.2 L Glucose 199 H Calculated Osmolal ity 264 L Calcium 7.3 L Phosphorus 2.9 Magnesium 1.8 Total Bilirubin 3.5 H AST 18 ALT 18 Alkaline Phosphata se 148 H Total Protein 4.6 L Albumin 2.2 L Globulin 2.4 HCV RNA (PCR) IUs/ ml HCV RNA (PCR) IU l og10 Hep C Genotype (PC R) Pending 10/08/19 04:32 WBC RBC Hgb Hct MCV MCH MCHC RDW Plt Count MPV Neut % (Auto) Lymph % (Auto) Crook % (Auto) Eos % (Auto) Baso % (Auto) Neut # (Auto) Lymph # (Auto) Crook # (Auto) Eos # (Auto) Baso # (Auto) Nucleated RBC % (a uto) Nucleated RBCs # Sodium Potassium Chloride Carbon Dioxide Anion Gap BUN Creatinine GFR Calculation Glucose Calculated Osmolal ity Calcium Phosphorus Magnesium Total Bilirubin AST ALT Alkaline Phosphata se Total Protein Albumin Globulin HCV RNA (PCR) IUs/ ml Pending HCV RNA (PCR) IU l og10 Pending Hep C Genotype (PC R) Vitals: Last Vital Signs Temp 97.3 F L 10/08/19 11:14 Pulse 72 10/08/19 11:14 Resp 18 10/08/19 11:14 BP 108/60 10/08/19 11:14 Pulse Ox 94 10/08/19 11:14 Discharge Plan Discharge Patient Disposition: Home Condition: Stable Prescriptions: New Cipro 500 mg tablet 500 mg PO BID 4 Days Qty: 8 RF: 0 hydrocodone-acetaminophen 10-325 mg tablet 1 tab PO BID PRN (Reason: pain) 7 Days Qty: 14 RF: 0 Continued Lasix 40 mg Tablet 40 mg PO DAILY RF: 0 tizanidine 2 mg Tablet 2 mg PO BEDTIME RF: 0 Zofran 4 mg Tablet 4 mg PO Q6H PRN (Reason: Nausea) RF: 0 MagOx 400 mg (241.3 mg magnesium) Tablet 400 mg PO DAILY RF: 0 hydroxyzine HCl 25 mg Tablet 25 - 50 mg PO BEDTIME RF: 0 spironolactone 50 mg Tablet 50 mg PO BID RF: 0 Novolog Flexpen U-100 Insulin 100 unit/mL (3 mL) Insulin Pen 20 unit SUBCUT BID RF: 0 Levemir FlexTouch U-100 Insuln 100 unit/mL (3 mL) Insulin Pen 65 unit SUBCUT BID RF: 0 potassium chloride 20 mEq Tablet Extended Release 20 meq PO DAILY RF: 0 Discharge Orders: Discharge Order (Routine); Ordered 10/08/19 Ordered By: Stephanie Lock Referrals: Alex Beckwith MD [Physician] - 10/14/19 10:45 am (You have an appointment on October 13 at 10:45am) Discharge Diet: Usual diet Discharge Activity: Resume usual activity Patient Instructions: Ciprofloxacin (By mouth), Hydrocodone/Acetaminophen (By mouth), Hyponatremia (GEN), Abdominal Paracentesis (DC) Discharge Date/Time: 10/08/19 16:20 Discharge Attestations Time Spent in Discharge Care*: greater than 30 min Specific Discharge Activities: Specific discharge activities: educating patient, discussing with case fitter/social workers/dc planners, documenting/other paperwork and evaluating patient/reviewing data Quality Metrics Clinical Quality Measures During this hospital stay, did patient experience: None Coding Level of Care Code Acute Medical Technical Writer for [facility] Fwd Diagnoses Cirrhosis of liver K74.60 Thrombocytopenia D69.6 Hyponatremia E87.1 Hyperbilirubinemia E80.6 Hyperammonemia E72.20 Portal hypertension K76.6 Insulin dependent type 2 diabetes mellitus E11.9; Z79.4 COPD (chronic obstructive pulmonary disease) J44.9 Ascites of liver R18.8
[2019-10-08 15:03] VITALS: BP 108/60; PULSE 72; RESP 18; TEMP 36.3; O2SAT 94
[2019-10-08 15:12] VITALS: BP 105/64; PULSE 63; RESP 18; TEMP 36.7; O2SAT 95
--- NOTE | 2019-10-08 16:15 | PC.NURSE ---
Patient discharged at this time. IV removed intact. Patient verbalized understanding of discharge medication and follow up appointment. Patient is A&Ox3. Respirations even and non-labored on room air.
--- NOTE | 2019-10-08 16:20 | PC.NURSE ---
Patient's Medicaid transport ride is here. Medications from [facility] are not here yet. Asked Medicaid transport to drive through [facility] pharmacy to orange picking supervisor patient medications as that way the delay getting her to the ride. Called [facility] pharmacy to make sure that patient did orange picking supervisor her medications and she did.
[2019-10-10 13:44] LABS: HEP C RNA Viral Load Quant <1.18 NOT DETECTED Log IU/mL (NOT DETECTED); HEP C RNA Viral Load Quant <15 NOT DETECTED IU/mL (NOT DETECTED)
[2019-10-15 21:57] LABS: Hepatitis C Genotype RNA NOT DETECTED
== END 2019-10-08 16:20 | disposition home or self-care (01) | DRG 432 ==
LOC: ER 11:48 → MEDSURG 15:09
PROVIDERS: Nurse Practitioner Family; Admitting Provider Family Medicine; Visit Provider Student in an Organized Health Care Education/Training Program
DX: K74.60 Unspecified cirrhosis of liver (principal); K65.9 Peritonitis, unspecified; E87.1 Hypo-osmolality and hyponatremia; R18.8 Other ascites; K76.6 Portal hypertension; E72.20 Disorder of urea cycle metabolism, unspecified; J44.9 Chronic obstructive pulmonary disease, unspecified; E11.9 Type 2 diabetes mellitus without complications; E80.6 Other disorders of bilirubin metabolism; D69.6 Thrombocytopenia, unspecified; Z79.4 Long term (current) use of insulin; Z86.19 Personal history of other infectious and parasitic diseases; F17.210 Nicotine dependence, cigarettes, uncomplicated
CPT/HCPCS: 12345; 36415; 49083; 71045; 74177; 80053; 80500; 81003; 82042; 82140; 82150; 82465; 82945; 83036; 83605; 83615; 83690; 83735; 83986; 84075; 84100; 84145; 84157; 84315; 84439; 84443; 84478; 84481; 84560; 85025; 85610; 85730; 86140; 87015; 87070; 87075; 87116; 87205; 87206; 87522; 87801; 87902; 89050; 94640; 94664; 96374; 96375; 97161; 99282; 99285; G0378; J0696; J1170; J2270; J7611; Q9967

== ENCOUNTER → 2019-10-22 14:20 | Outpatient (BNVA) | payer MEDICAID, SELFPAY | PROVIDERS: Visit Provider Internal Medicine | DX: K72.90 Hepatic failure, unspecified without coma (principal); E11.9 Type 2 diabetes mellitus without complications; K76.6 Portal hypertension; D73.1 Hypersplenism; Z79.4 Long term (current) use of insulin; J44.9 Chronic obstructive pulmonary disease, unspecified; K74.60 Unspecified cirrhosis of liver; B19.20 Unspecified viral hepatitis C without hepatic coma | CPT/HCPCS: 83036; 85025 ==

== ENCOUNTER → 2019-11-13 10:35 | Day surgery (SDC) | payer MEDICAID, SELFPAY ==
--- NOTE | 2019-11-13 11:14 | US_ITS ---
WS: [id number] Limited abdomen ultrasound, 11/13/2019 Clinical Data: marking for paracentesis Comparison: Limited abdomen, 10/06/2019. Findings: There is ascites noted in all 4 quadrants. US/US abdomen limited [id number] Impression: Large amount of ascites throughout abdomen.
[2019-11-13 11:22] VITALS: BP 120/62; PULSE 79; RESP 22; TEMP 35.9; O2SAT 95
--- NOTE | 2019-11-13 16:18 | PM.ACPR ---
Acute Procedures Paracentesis: Time out performed: Yes Indication: Ascites Procedure: therapeutic paracentesis Location: [facility]Q Local anesthetic used: lidocaine 1% Amount of anesthesia used (ml): 10 Bedside ultrasound used: yes, Ascites confirmed and location marked Preparation: sterile prep and drape Amount of fluid obtained (ml): 5,600 Fluid: clear Post procedure exam: awake, alert Patient tolerated procedure: well Complications: none
== END ==
PROVIDERS: PCP Internal Medicine; Visit Provider Internal Medicine
DX: R18.8 Other ascites (principal)
CPT/HCPCS: 12345; 49082; 76705

== ENCOUNTER 2019-11-17 11:20 | Inpatient (IN) | payer MEDICAID, SELFPAY ==
[2019-11-17] VITALS (18 sets, daily range): BP systolic 70–125; BP diastolic 35–74; PULSE 78–108; RESP 6–25; TEMP 36.7; O2SAT 92–98; BMI 40.2
[2019-11-17] MEDS: sodium chloride 0.9% 1,000 ML 999 ML IV ×2 (12:13→15:58)
[2019-11-17 12:56] LABS: Basophils # 0.1 10^3/uL (0.0-0.1); Basophils % 0.5 %; Eosinophils % 0.2 %; Hematocrit 32.1 % (37.0-47.0); Hemoglobin 10.7 g/dL (11.5-15.3); Lymphocytes # 0.2 10^3/uL (0.8-4.8); Lymphocytes % 1.6 %; Mean Corpuscular HGB Conc 33.3 g/dL (30.0-36.0); Mean Corpuscular Hemoglobin 31.3 pg (28.0-34.0); Mean Corpuscular Volume 93.9 fL (81-99); Mean Platelet Volume 11.2 fL (7.4-10.4); Monocytes # 0.3 10^3/uL (0.2-0.9); Monocytes % 2.8 %; Neutrophils # 10.16 10^3/uL (1.8-7.7); Neutrophils % 94.3 %; Nucleated Red Blood Cells % 0 %; Platelet Count 55 10^3/cmm (130-400); Red Blood Count 3.42 10^6/uL (4.1-5.3); Red Cell Distribution Width 16.7 % (12.1-15.1); White Blood Count 10.8 10^3/uL (4.0-10.0)
[2019-11-17 13:19] LABS: Ammonia 72 umol/L (11-51)
[2019-11-17 13:26] LABS: Lactate (Lactic Acid level) 7.6 mmol/L (0.5-2.2)
[2019-11-17 13:28] LABS: Slide Review Slide Review Perform
[2019-11-17 13:30] LABS: Alanine Aminotransferase 41 U/L (0-33); Albumin Level 2.2 g/dL (3.5-5.2); Alkaline Phosphatase 124 IU/L (35-105); Anion Gap 21.3 (5-19); Aspartate Amino Transferase 28 U/L (0-32); Blood Urea Nitrogen 37 mg/dL (6-20); C Reactive Protein 86.4 mg/L (0.0-4.9); Calcium 8.2 mg/dL (8.5-10.5); Carbon Dioxide 13 mmol/L (22-29); Chloride 89 mmol/L (98-107); Creatine Phosphokinase 55 U/L (26-192); Globulin 2.2 g/dL (1.3-4.6); Glomerular Filtration Rate 24.3 mL/min (90-130); Glucose 130 mg/dL (65-115); Lipase 19 U/L (13-60); NT Pro B Type Natriuretic Pept 345 pg/mL (0-125); Osmolality Calculated 254 mOsm/kg (285-295); Potassium 6.3 mmol/L (3.5-5.1); Total Protein 4.4 g/dL (6.6-8.7)
[2019-11-17] MEDS: morphine 4 mg/mL SDV 1 mL IVP (13:40)
[2019-11-17] MEDS: ondansetron 2 mg/ML SDV 2 mL 4 MG IVP (13:41)
[2019-11-17 13:44] LABS: Sodium 117 mmol/L (136-145)
--- NOTE | 2019-11-17 13:48 | CTR_ITS ---
PROCEDURE INFORMATION: Exam: CT Abdomen And Pelvis Without Contrast Exam date and time: 11/17/2019 4:26 PM Age: 59 years old Clinical indication: Abdominal pain; Prior surgery; Surgery type: Gb, appy, tubal; Additional info: Abd pain. Sepsis TECHNIQUE: Imaging protocol: Computed tomography of the abdomen and pelvis without contrast. Radiation optimization: All CT scans at this facility use at least one of these dose optimization techniques: automated exposure control; mA and/or kV adjustment per patient size (includes targeted exams where dose is matched to clinical indication); or iterative reconstruction. COMPARISON: CT abdomen pelvis w con* [id number] 10/05/2019 10:59 AM RADIATION DOSE METRICS: Total DLP (mGy-cm): 1360.33 FINDINGS: Lungs: Limited assessment lung bases without visible evidence of active cardiopulmonary process. Liver: Cirrhosis of the liver. Gallbladder and bile ducts: Status post cholecystectomy. Pancreas: Pancreas with mild atrophic changes. No visible pancreatic ductal ectasia. Spleen: Splenomegaly. Adrenals: Again note of bilateral adrenal nodules. Right adrenal nodule measures 21 mm in diameter and the left 19 mm in diameter. Kidneys and ureters: Unremarkable. No hydronephrosis. Stomach and bowel: Limited assessment of the hollow viscus. Evidence of small bowel ectasia, primarily proximal jejunal loops, with associated mucosal thickening. Findings raising suspicion for active jejunitis. Potential etiologies for the acute jejunitis would include such etiologies as giardiasis, eosinophilic enteritis, strongyloidiasis, Yersinia enterocolitis, Campylobacter, Shigella, Escherichia coli, amyloidosis, or Whipple's disease. In immunocomprimised patients consideration might be given to Cryptosporidium, Mycobacterium, Yady, or avium intracellulare. Findings raising suspicion for diffuse gastritis. Appendix: Status post appendectomy. Intraperitoneal space: Large volume intraperitoneal ascites. Vasculature: Evidence of portal venous hypertension. Left splenorenal shunt. Varices. The abdominal aorta is nonaneurysmal. Mild arterial sclerotic disease. Lymph nodes: No grossly visible mesenteric or retroperitoneal lymphadenopathy. Urinary bladder: Dey catheter in the decompressed urinary bladder. Reproductive: Unremarkable as visualized. Bones/joints: No visible acute osseous abnormality. Soft tissues: Marked diffuse anasarca. Other findings: Marked obesity. Increased quantum mottle artifact. CT/CT abdomen pelvis wo con [id number] IMPRESSION: 1. Findings raising suspicion for active either infectious or inflammatory jejunitis. 2. Potential active gastritis. 3. Cirrhosis of the liver with portal venous hypertension. 4. Large volume intraperitoneal ascites. 5. Splenomegaly. 6. Again note of bilateral adrenal nodules. If patient has no cancer history, consider follow-up adrenal CT or resection. If patient has a history of cancer, consider biopsy or PET/CT for patients with cancer history. ([place], ACR White Paper, 2017). 7. Diffuse anasarca. Radiation Dose CTDIVOL = (mGy): DLP = 1360.33 (mGy-cm)
[2019-11-17 13:51] LABS: Urine Appearance Hazy (CLEAR); Urine Color Amber (Yellow)
[2019-11-17 13:52] LABS: Add Urine Microscopic? YES; Bilirubin Urine 2+ (Negative); Blood Urine Trace (Negative); Glucose Urine UA Norm (Normal); Ketones Urine 1+ (Negative); Leukocyte Esterase Urine Trace (Negative); Nitrate Urine Negative (Negative); Protein Urine Neg (Negative); Urobilinogen Urine 4+ mg/dL (Negative); pH Urine 5 (5-7)
[2019-11-17 13:55] LABS: Amorphous Sediment Urine 1+ /hpf; Bacteria Urine 1+ /hpf; Hyaline Casts Urine 0-4 /lpf
[2019-11-17 13:56] LABS: Add Urine Culture? No; RBC Urine 0-4 /hpf (0-2)
--- NOTE | 2019-11-17 14:49 | XR_ITS ---
WS: [id number] PORTABLE CHEST HISTORY: sepsis COMPARISON: 10/05/2019 Patient is rotated to the RIGHT. Mild interstitial edema. Increased soft tissue in the RIGHT paratracheal region could be due to rotat ion of the patient or pneumonia. No pleural effusion or pneumothorax. Cardiac size: Normal. Mediastinum/Aorta: Normal mediastinum. No osseous abnormality seen. XR/XR chest 1V portable [id number] IMPRESSION: 1. Limited by rotation. 2. Increased soft tissue in the RIGHT paratracheal region could be due to rota tion of the patient or pneumonia. 3. Mild interstitial edema.
--- NOTE | 2019-11-17 17:01 | ED_ITS ---
Documented by User: Miguel Abrams MD, [facility] [place] 11/17/19 23:15 HPI - Abdominal Pain General: Chief Complaint: Abdominal Pain Stated Complaint: ABD PAIN X 2 WEEKS Time Seen by Provider: 11/17/19 11:29 Source: patient Mode of arrival: EMS Limitations: no limitations History of Present Illness: HPI narrative: Patient is a 59-year-old female patient with a history of liver cirrhosis, insulin-dependent diabetes, COPD, ascites presents to the emergency department with abdominal pain of 2 weeks duration. She has had repeated abdominal paracentesis and the last one done was 4 days ago. She denies any fever, denies nausea or vomiting. She may have some diarrhea. Patient is becoming unbearable so she is here for evaluation MD elicited complaint: abdominal pain Pertinent past history: other (cirrhosis) Pain Consistency: constant Location: Diffuse Quality: stabbing Radiation: none Associated Symptoms: Reports anorexia and nausea; Denies belching, bloating, change in bowel habits, change in stool character, chills, coffee ground emesis, constipation, GI cramping, diarrhea, dyspepsia, dysuria, excessive flatus, fever(s), heartburn, hematochezia, hematuria, hematemesis, fecal incontinence, loose stools, melena, poor appetite, syncope and vomiting Review of Systems General: Reports: 10 or more systems reviewed and unremarkable except in HPI and below Const: Denies: fever(s) or chills Eyes: Denies: change in vision or blurry vision ENMT: Denies: throat pain, enlarged tonsils, odynophagia, hoarseness, mouth pain or swelling of lips/tongue Card: Denies: syncope Resp: Denies: dyspnea, productive cough or non-productive cough GI: Reports: nausea; Denies: vomiting, hematemesis, coffee ground emesis, heartburn, diarrhea, constipation, bloating, GI cramping, belching, excessive flatus, fecal incontinence, change in bowel habits, change in stool character, hematochezia or melena : Denies: dysuria or hematuria Musc: Denies: neck pain, back pain or extremity swelling Skin/Breast: Denies: rash, pruritus or erythema Neuro: Denies: headache(s), numbness in extremities or weakness in extremities Endo: Denies: polyuria, polydipsia or tired all the time PFSH ED PFSH: Medical History (Updated 11/17/19 @ 23:15 by Miguel Abrams MD, [facility] [place]) Adrenal nodule bilateral, 21mm R, 19mm L, noted on CT imaging 10/2019 Anxiety COPD (chronic obstructive pulmonary disease) Diabetes History of such, not currently on any treatment, hemoglobin A1c done on and 10/06/2019 were 5.3 and 5.5 respectively. End stage liver disease with ascites (periodic paracentesis), hypersplenism, thrombocytopenia, portal hypertension with left splenorenal shunt and varices noted on CT imaging, hyperammonemia (60-70), hyponatremia (upper 120s) History of hepatitis C s/p treatment sovaldi/riba ~2012, undetectable levels 10/2019 Seizure anxiety induced seizures per patient description Surgical History (Updated 11/17/19 @ 20:43 by Mitzi Becerril MD) History of colonoscopy History of laparoscopic cholecystectomy History of repair of left rotator cuff Hx of appendectomy Family History Other Diabetes Social History Smoking and tobacco status: current every day smoker Alcohol intake: former History of recent travel: No Physical Exam Const: COMMON NORMALS: no acute distress, average body habitus, patient oriented x3, no limitations, healthy appearing, alert and well nourished HENMT: COMMON NORMALS: normocephalic, atraumatic and moist oral mucous membranes HEAD & SCALP: normocephalic and atraumatic MOUTH: Abnormal oral and palatal mucosa present other (Very dry mucous membranes) Eye: COMMON NORMALS: Equal, round and reactive pupils present, EOMs intact bilaterally, conjunctivae normal and no scleral icterus CONJUNCTIVA: Yes conjunctivae normal PUPIL: Yes Equal, round and reactive pupils present Neck/C-Spine: COMMON NORMALS: full ROM, supple, no meningeal signs, no JVD and No carotid bruits Resp: COMMON NORMALS: normal respiratory effort, No retractions, No use of accessory muscles, clear to auscultation bilaterally and percussion normal AUSCULTATION: clear to auscultation bilaterally PERCUSSION: percussion normal Cardio: COMMON NORMALS: no JVD, regular rate, regular rhythm, S1 normal heart sound present, S2 normal heart sound present, No gallops present (Cardio), No clicks present (Cardio), No murmurs present (Cardio), No rub (Cardio) and Peripheral pulses 2+ throughout RATE: regular rate RHYTHM: regular rhythm HEART SOUNDS: S1 normal heart sound present and S2 normal heart sound present PERIPHERAL PULSES: Peripheral pulses 2+ throughout GI: COMMON NORMALS: Normal to inspection, nondistended, normoactive bowel sounds present, Soft to palpation, No hepatosplenomegaly present, no masses and no bruits PALPATION: Yes Soft to palpation, Yes Tenderness to palpation present (GI) Details: RUQ and other (epigastric) and Yes No hepatosplenomegaly present Extremity: COMMON NORMALS: normal to inspection, full ROM, capillary refill normal, no calf tenderness and no pedal edema Neuro: COMMON NORMALS: patient oriented x3 SENSORIUM/ORIENTATION: Yes alert MENINGEAL SIGNS: Yes no meningeal signs Skin: COMMON NORMALS: no rashes or lesions noted, no wounds, turgor normal, no petechiae and no mottling GENERAL SKIN EXAM: no rashes or lesions noted, turgor normal and jaundice Course ED course: 59-year-old female patient with cirrhosis, ascites, COPD, diabetes mellitus, who presents to the emergency department with 2-week history of abdominal pain. The patient was noted to be hypokalemic, severely hyponatremic, had significant lactic acidosis which improved a little following fluid hydration. No obvious source of infection was located with negative chest x- ray, CT scan of the abdomen and pelvis showing jejunitis and gastritis. She has significant ascites and the possibility of spontaneous bacterial peritonitis was considered. In hospital is determined that she would obtain paracentesis tomorrow. Patient was given insulin and dextrose to correct hyperkalemia, hypertonic saline to correct hyponatremia, IV fluids hydration as the patient was pretty dehydrated. She is admitted to the ICU for further evaluation and management Consultations: Consultation #1: Dr. Lock, hospitalist. She kindly accepted patient to her service. Vital Signs: Vital signs: Vital Signs Temperature 98.0 F 11/17/19 11:33 Pulse Rate 78 11/17/19 22:36 Respiratory Rate 19 H 11/17/19 22:36 Blood Pressure 95/45 11/17/19 22:36 Pulse Oximetry 94 11/17/19 22:36 MDM - Abdominal Pain MDM Narrative: Medical decision making narrative: Patient with lactic acidosis, severe dehydration, hyponatremia, hyperkalemia, hyperbilirubinemia, history of cirrhosis and ascites once admitted to the ICU for further evaluation and management. Medical Records: Attestation: I reviewed the patient's medical records. Lab Data: Attestation: I reviewed the patient's lab results. Labs: Lab Results 11/17/19 11/17/19 11/17/19 Range/Units 12:48 12:48 12:48 WBC 10.8 H (4.0-10.0) 10^3/ uL RBC 3.42 L (4.1-5.3) 10^6/u L Hgb 10.7 L (11.5-15.3) g/dL Hct 32.1 L (37.0-47.0) % MCV 93.9 (81-99) fL MCH 31.3 (28.0-34.0) pg MCHC 33.3 (30.0-36.0) g/dL RDW 16.7 H (12.1-15.1) % Plt Count 55 L (130-400) 10^3/c mm MPV 11.2 H (7.4-10.4) fL Neut % (Auto) 94.3 % Lymph % (Auto) 1.6 % [place] % (Auto) 2.8 % Eos % (Auto) 0.2 % Baso % (Auto) 0.5 % Neut # (Auto) 10.16 H (1.8-7.7) 10^3/u L Lymph # (Auto) 0.2 L (0.8-4.8) 10^3/u L [place] # (Auto) 0.3 (0.2-0.9) 10^3/u L Eos # (Auto) 0.0 (0.0-0.8) 10^3/u L Baso # (Auto) 0.1 (0.0-0.1) 10^3/u L Nucleated RBC % (a uto) 0 % Nucleated RBCs # 0.0 /100WBC PT (12.1-14.9) SECO NDS INR (0.8-1.2) APTT (23.9-36.7) SECO NDS Sodium 117 L* (136-145) mmol/L Potassium 6.3 H (3.5-5.1) mmol/L Chloride 89 L (98-107) mmol/L Carbon Dioxide 13 L (22-29) mmol/L Anion Gap 21.3 H (5-19) BUN 37 H (6-20) mg/dL Creatinine 2.1 H (0.5-0.9) mg/dL GFR Calculation 24.3 L (90-130) mL/min Glucose 130 H (65-115) mg/dL Calculated Osmolal ity 254 L (285-295) mOsm/k g Lactic Acid (0.5-2.2) mmol/L Lactate 7.6 H* (0.5-2.2) mmol/L Calcium 8.2 L (8.5-10.5) mg/dL Total Bilirubin 18.0 H* (0.15-1.2) mg/dL AST 28 (0-32) U/L ALT 41 H (0-33) U/L Alkaline Phosphata se 124 H (35-105) IU/L Ammonia (11-51) umol/L Creatine Kinase 55 (26-192) U/L C-Reactive Protein 86.4 H (0.0-4.9) mg/L NT-Pro-B Natriuret Pep 345 H (0-125) pg/mL Total Protein 4.4 L (6.6-8.7) g/dL Albumin 2.2 L (3.5-5.2) g/dL Globulin 2.2 (1.3-4.6) g/dL Lipase 19 (13-60) U/L Urine Color (Yellow) Urine Appearance (CLEAR) Urine pH (5-7) Ur Specific Gravit y (1.005-1.030) Urine Protein (Negative) Urine Glucose (UA) (Normal) Urine Ketones (Negative) Urine Blood (Negative) Urine Nitrate (Negative) Urine Bilirubin (Negative) Urine Urobilinogen (Negative) mg/dL Ur Leukocyte Jailene ase (Negative) Urine RBC (0-2) /hpf Urine WBC (0-5) /hpf Ur Squamous Epith Cells (0-5) /hpf Amorphous Sediment /hpf Urine Bacteria (NONE) /hpf Hyaline Casts /lpf 11/17/19 11/17/19 11/17/19 Range/Units 12:48 12:48 13:28 WBC (4.0-10.0) 10^3/ uL RBC (4.1-5.3) 10^6/u L Hgb (11.5-15.3) g/dL Hct (37.0-47.0) % MCV (81-99) fL MCH (28.0-34.0) pg MCHC (30.0-36.0) g/dL RDW (12.1-15.1) % Plt Count (130-400) 10^3/c mm MPV (7.4-10.4) fL Neut % (Auto) % Lymph % (Auto) % [place] % (Auto) % Eos % (Auto) % Baso % (Auto) % Neut # (Auto) (1.8-7.7) 10^3/u L Lymph # (Auto) (0.8-4.8) 10^3/u L [place] # (Auto) (0.2-0.9) 10^3/u L Eos # (Auto) (0.0-0.8) 10^3/u L Baso # (Auto) (0.0-0.1) 10^3/u L Nucleated RBC % (a uto) % Nucleated RBCs # /100WBC PT 24.60 H (12.1-14.9) SECO NDS INR 2.13 H (0.8-1.2) APTT 38.8 H (23.9-36.7) SECO NDS Sodium (136-145) mmol/L Potassium (3.5-5.1) mmol/L Chloride (98-107) mmol/L Carbon Dioxide (22-29) mmol/L Anion Gap (5-19) BUN (6-20) mg/dL Creatinine (0.5-0.9) mg/dL GFR Calculation (90-130) mL/min Glucose (65-115) mg/dL Calculated Osmolal ity (285-295) mOsm/k g Lactic Acid (0.5-2.2) mmol/L Lactate (0.5-2.2) mmol/L Calcium (8.5-10.5) mg/dL Total Bilirubin (0.15-1.2) mg/dL AST (0-32) U/L ALT (0-33) U/L Alkaline Phosphata se (35-105) IU/L Ammonia 72 H (11-51) umol/L Creatine Kinase (26-192) U/L C-Reactive Protein (0.0-4.9) mg/L NT-Pro-B Natriuret Pep (0-125) pg/mL Total Protein (6.6-8.7) g/dL Albumin (3.5-5.2) g/dL Globulin (1.3-4.6) g/dL Lipase (13-60) U/L Urine Color Anna (Yellow) Urine Appearance Hazy A (CLEAR) Urine pH 5 (5-7) Ur Specific Gravit y 1.020 (1.005-1.030) Urine Protein Neg (Negative) Urine Glucose (UA) Norm (Normal) Urine Ketones 1+ H (Negative) Urine Blood Trace H (Negative) Urine Nitrate Negative (Negative) Urine Bilirubin 2+ H (Negative) Urine Urobilinogen 4+ H (Negative) mg/dL Ur Leukocyte Jailene ase Trace H (Negative) Urine RBC 0-4 H (0-2) /hpf Urine WBC 5-10 H (0-5) /hpf Ur Squamous Epith Cells 5-10 H (0-5) /hpf Amorphous Sediment 1+ /hpf Urine Bacteria 1+ H (NONE) /hpf Hyaline Casts 0-4 H /lpf 11/17/19 11/17/19 Range/Units 18:20 18:20 WBC (4.0-10.0) 10^3/ uL RBC (4.1-5.3) 10^6/u L Hgb (11.5-15.3) g/dL Hct (37.0-47.0) % MCV (81-99) fL MCH (28.0-34.0) pg MCHC (30.0-36.0) g/dL RDW (12.1-15.1) % Plt Count (130-400) 10^3/c mm MPV (7.4-10.4) fL Neut % (Auto) % Lymph % (Auto) % [place] % (Auto) % Eos % (Auto) % Baso % (Auto) % Neut # (Auto) (1.8-7.7) 10^3/u L Lymph # (Auto) (0.8-4.8) 10^3/u L [place] # (Auto) (0.2-0.9) 10^3/u L Eos # (Auto) (0.0-0.8) 10^3/u L Baso # (Auto) (0.0-0.1) 10^3/u L Nucleated RBC % (a uto) % Nucleated RBCs # /100WBC PT (12.1-14.9) SECO NDS INR (0.8-1.2) APTT (23.9-36.7) SECO NDS Sodium 115 L* (136-145) mmol/L Potassium 5.9 H (3.5-5.1) mmol/L Chloride 89 L (98-107) mmol/L Carbon Dioxide 10 L (22-29) mmol/L Anion Gap 21.9 H (5-19) BUN 37 H (6-20) mg/dL Creatinine 1.7 H (0.5-0.9) mg/dL GFR Calculation 31.0 L (90-130) mL/min Glucose 112 (65-115) mg/dL Calculated Osmolal ity 249 L (285-295) mOsm/k g Lactic Acid 6.5 H* (0.5-2.2) mmol/L Lactate (0.5-2.2) mmol/L Calcium 8.2 L (8.5-10.5) mg/dL Total Bilirubin (0.15-1.2) mg/dL AST (0-32) U/L ALT (0-33) U/L Alkaline Phosphata se (35-105) IU/L Ammonia (11-51) umol/L Creatine Kinase (26-192) U/L C-Reactive Protein (0.0-4.9) mg/L NT-Pro-B Natriuret Pep (0-125) pg/mL Total Protein (6.6-8.7) g/dL Albumin (3.5-5.2) g/dL Globulin (1.3-4.6) g/dL Lipase (13-60) U/L Urine Color (Yellow) Urine Appearance (CLEAR) Urine pH (5-7) Ur Specific Gravit y (1.005-1.030) Urine Protein (Negative) Urine Glucose (UA) (Normal) Urine Ketones (Negative) Urine Blood (Negative) Urine Nitrate (Negative) Urine Bilirubin (Negative) Urine Urobilinogen (Negative) mg/dL Ur Leukocyte Jailene ase (Negative) Urine RBC (0-2) /hpf Urine WBC (0-5) /hpf Ur Squamous Epith Cells (0-5) /hpf Amorphous Sediment /hpf Urine Bacteria (NONE) /hpf Hyaline Casts /lpf Critical Care Time Critical Care Time: Critical Care Time: Yes Total Critical Care Time: 60 Attestation: This case had a high probability of a clinically significant, sudden, or life threatening deterioration of this patient's condition which required my full and direct attention, intervention and personal management. Discharge Plan Discharge Patient Disposition: Admitted As Inpatient Admit Provider: Stephanie Lock Clinical Impression: Acute hyponatremia, Hyperbilirubinemia, DOMINIQUE (acute kidney injury), Acidosis, lactic, Acute hyperkalemia, Acute dehydration, Ascites Condition: Stable Interventions: ED Discharge Assessment Last Done: 11/17/19 21:09 ED Charges Last Done: 11/17/19 21:09 Coding Level of Care Code ED Senior Ui Designer for Chg Fwd Exam Comprehensive Documented by User: Yodit Lynch MD 11/17/19 22:36 HPI - Abdominal Pain General: Chief Complaint: Abdominal Pain Stated Complaint: ABD PAIN X 2 WEEKS Time Seen by Provider: 11/17/19 11:29 [facility] ED PFS: Medical History (Updated 11/17/19 @ 23:15 by Miguel Abrams MD, [facility] [place]) Adrenal nodule bilateral, 21mm R, 19mm L, noted on CT imaging 10/2019 Anxiety COPD (chronic obstructive pulmonary disease) Diabetes History of such, not currently on any treatment, hemoglobin A1c done on 03/2019 and 10/06/2019 were 5.3 and 5.5 respectively. End stage liver disease with ascites (periodic paracentesis), hypersplenism, thrombocytopenia, portal hypertension with left splenorenal shunt and varices noted on CT imaging, hyperammonemia (60-70), hyponatremia (upper 120s) History of hepatitis C s/p treatment sovaldi/riba ~2012, undetectable levels 10/2019 Seizure anxiety induced seizures per patient description Surgical History (Updated 11/17/19 @ 20:43 by Mitzi Becerril MD) History of colonoscopy History of laparoscopic cholecystectomy History of repair of left rotator cuff Hx of appendectomy Family History Other Diabetes Social History Smoking and tobacco status: current every day smoker Alcohol intake: former History of recent travel: No Procedures Paracentesis Time Out Performed: Yes Local Anesthetic: lidocaine 1% Amount of anesthesia used (mL): 3 Post Procedure Exam: awake, alert Patient Tolerated Procedure: well Complications: other (no fluid was obtained in spite of catheter being visualized on US in the fluid space) Course Vital Signs: Vital signs: Vital Signs Temperature 98.0 F 11/17/19 11:33 Pulse Rate 78 11/17/19 22:36 Respiratory Rate 19 H 11/17/19 22:36 Blood Pressure 95/45 11/17/19 22:36 Pulse Oximetry 94 11/17/19 22:36 MDM - Abdominal Pain Lab Data: Labs: Lab Results 11/17/19 11/17/19 11/17/19 Range/Units 12:48 12:48 12:48 WBC 10.8 H (4.0-10.0) 10^3/ uL RBC 3.42 L (4.1-5.3) 10^6/u L Hgb 10.7 L (11.5-15.3) g/dL Hct 32.1 L (37.0-47.0) % MCV 93.9 (81-99) fL MCH 31.3 (28.0-34.0) pg MCHC 33.3 (30.0-36.0) g/dL RDW 16.7 H (12.1-15.1) % Plt Count 55 L (130-400) 10^3/c mm MPV 11.2 H (7.4-10.4) fL Neut % (Auto) 94.3 % Lymph % (Auto) 1.6 % [place] % (Auto) 2.8 % Eos % (Auto) 0.2 % Baso % (Auto) 0.5 % Neut # (Auto) 10.16 H (1.8-7.7) 10^3/u L Lymph # (Auto) 0.2 L (0.8-4.8) 10^3/u L [place] # (Auto) 0.3 (0.2-0.9) 10^3/u L Eos # (Auto) 0.0 (0.0-0.8) 10^3/u L Baso # (Auto) 0.1 (0.0-0.1) 10^3/u L Nucleated RBC % (a uto) 0 % Nucleated RBCs # 0.0 /100WBC PT (12.1-14.9) SECO NDS INR (0.8-1.2) APTT (23.9-36.7) SECO NDS Sodium 117 L* (136-145) mmol/L Potassium 6.3 H (3.5-5.1) mmol/L Chloride 89 L (98-107) mmol/L Carbon Dioxide 13 L (22-29) mmol/L Anion Gap 21.3 H (5-19) BUN 37 H (6-20) mg/dL Creatinine 2.1 H (0.5-0.9) mg/dL GFR Calculation 24.3 L (90-130) mL/min Glucose 130 H (65-115) mg/dL Calculated Osmolal ity 254 L (285-295) mOsm/k g Lactic Acid (0.5-2.2) mmol/L Lactate 7.6 H* (0.5-2.2) mmol/L Calcium 8.2 L (8.5-10.5) mg/dL Total Bilirubin 18.0 H* (0.15-1.2) mg/dL AST 28 (0-32) U/L ALT 41 H (0-33) U/L Alkaline Phosphata se 124 H (35-105) IU/L Ammonia (11-51) umol/L Creatine Kinase 55 (26-192) U/L C-Reactive Protein 86.4 H (0.0-4.9) mg/L NT-Pro-B Natriuret Pep 345 H (0-125) pg/mL Total Protein 4.4 L (6.6-8.7) g/dL Albumin 2.2 L (3.5-5.2) g/dL Globulin 2.2 (1.3-4.6) g/dL Lipase 19 (13-60) U/L Urine Color (Yellow) Urine Appearance (CLEAR) Urine pH (5-7) Ur Specific Gravit y (1.005-1.030) Urine Protein (Negative) Urine Glucose (UA) (Normal) Urine Ketones (Negative) Urine Blood (Negative) Urine Nitrate (Negative) Urine Bilirubin (Negative) Urine Urobilinogen (Negative) mg/dL Ur Leukocyte Jailene ase (Negative) Urine RBC (0-2) /hpf Urine WBC (0-5) /hpf Ur Squamous Epith Cells (0-5) /hpf Amorphous Sediment /hpf Urine Bacteria (NONE) /hpf Hyaline Casts /lpf 11/17/19 11/17/19 11/17/19 Range/Units 12:48 12:48 13:28 WBC (4.0-10.0) 10^3/ uL RBC (4.1-5.3) 10^6/u L Hgb (11.5-15.3) g/dL Hct (37.0-47.0) % MCV (81-99) fL MCH (28.0-34.0) pg MCHC (30.0-36.0) g/dL RDW (12.1-15.1) % Plt Count (130-400) 10^3/c mm MPV (7.4-10.4) fL Neut % (Auto) % Lymph % (Auto) % [place] % (Auto) % Eos % (Auto) % Baso % (Auto) % Neut # (Auto) (1.8-7.7) 10^3/u L Lymph # (Auto) (0.8-4.8) 10^3/u L [place] # (Auto) (0.2-0.9) 10^3/u L Eos # (Auto) (0.0-0.8) 10^3/u L Baso # (Auto) (0.0-0.1) 10^3/u L Nucleated RBC % (a uto) % Nucleated RBCs # /100WBC PT 24.60 H (12.1-14.9) SECO NDS INR 2.13 H (0.8-1.2) APTT 38.8 H (23.9-36.7) SECO NDS Sodium (136-145) mmol/L Potassium (3.5-5.1) mmol/L Chloride (98-107) mmol/L Carbon Dioxide (22-29) mmol/L Anion Gap (5-19) BUN (6-20) mg/dL Creatinine (0.5-0.9) mg/dL GFR Calculation (90-130) mL/min Glucose (65-115) mg/dL Calculated Osmolal ity (285-295) mOsm/k g Lactic Acid (0.5-2.2) mmol/L Lactate (0.5-2.2) mmol/L Calcium (8.5-10.5) mg/dL Total Bilirubin (0.15-1.2) mg/dL AST (0-32) U/L ALT (0-33) U/L Alkaline Phosphata se (35-105) IU/L Ammonia 72 H (11-51) umol/L Creatine Kinase (26-192) U/L C-Reactive Protein (0.0-4.9) mg/L NT-Pro-B Natriuret Pep (0-125) pg/mL Total Protein (6.6-8.7) g/dL Albumin (3.5-5.2) g/dL Globulin (1.3-4.6) g/dL Lipase (13-60) U/L Urine Color Anna (Yellow) Urine Appearance Hazy A (CLEAR) Urine pH 5 (5-7) Ur Specific Gravit y 1.020 (1.005-1.030) Urine Protein Neg (Negative) Urine Glucose (UA) Norm (Normal) Urine Ketones 1+ H (Negative) Urine Blood Trace H (Negative) Urine Nitrate Negative (Negative) Urine Bilirubin 2+ H (Negative) Urine Urobilinogen 4+ H (Negative) mg/dL Ur Leukocyte Jailene ase Trace H (Negative) Urine RBC 0-4 H (0-2) /hpf Urine WBC 5-10 H (0-5) /hpf Ur Squamous Epith Cells 5-10 H (0-5) /hpf Amorphous Sediment 1+ /hpf Urine Bacteria 1+ H (NONE) /hpf Hyaline Casts 0-4 H /lpf 11/17/19 11/17/19 Range/Units 18:20 18:20 WBC (4.0-10.0) 10^3/ uL RBC (4.1-5.3) 10^6/u L Hgb (11.5-15.3) g/dL Hct (37.0-47.0) % MCV (81-99) fL MCH (28.0-34.0) pg MCHC (30.0-36.0) g/dL RDW (12.1-15.1) % Plt Count (130-400) 10^3/c mm MPV (7.4-10.4) fL Neut % (Auto) % Lymph % (Auto) % [place] % (Auto) % Eos % (Auto) % Baso % (Auto) % Neut # (Auto) (1.8-7.7) 10^3/u L Lymph # (Auto) (0.8-4.8) 10^3/u L [place] # (Auto) (0.2-0.9) 10^3/u L Eos # (Auto) (0.0-0.8) 10^3/u L Baso # (Auto) (0.0-0.1) 10^3/u L Nucleated RBC % (a uto) % Nucleated RBCs # /100WBC PT (12.1-14.9) SECO NDS INR (0.8-1.2) APTT (23.9-36.7) SECO NDS Sodium 115 L* (136-145) mmol/L Potassium 5.9 H (3.5-5.1) mmol/L Chloride 89 L (98-107) mmol/L Carbon Dioxide 10 L (22-29) mmol/L Anion Gap 21.9 H (5-19) BUN 37 H (6-20) mg/dL Creatinine 1.7 H (0.5-0.9) mg/dL GFR Calculation 31.0 L (90-130) mL/min Glucose 112 (65-115) mg/dL Calculated Osmolal ity 249 L (285-295) mOsm/k g Lactic Acid 6.5 H* (0.5-2.2) mmol/L Lactate (0.5-2.2) mmol/L Calcium 8.2 L (8.5-10.5) mg/dL Total Bilirubin (0.15-1.2) mg/dL AST (0-32) U/L ALT (0-33) U/L Alkaline Phosphata se (35-105) IU/L Ammonia (11-51) umol/L Creatine Kinase (26-192) U/L C-Reactive Protein (0.0-4.9) mg/L NT-Pro-B Natriuret Pep (0-125) pg/mL Total Protein (6.6-8.7) g/dL Albumin (3.5-5.2) g/dL Globulin (1.3-4.6) g/dL Lipase (13-60) U/L Urine Color (Yellow) Urine Appearance (CLEAR) Urine pH (5-7) Ur Specific Gravit y (1.005-1.030) Urine Protein (Negative) Urine Glucose (UA) (Normal) Urine Ketones (Negative) Urine Blood (Negative) Urine Nitrate (Negative) Urine Bilirubin (Negative) Urine Urobilinogen (Negative) mg/dL Ur Leukocyte Jailene ase (Negative) Urine RBC (0-2) /hpf Urine WBC (0-5) /hpf Ur Squamous Epith Cells (0-5) /hpf Amorphous Sediment /hpf Urine Bacteria (NONE) /hpf Hyaline Casts /lpf Discharge Plan Discharge Patient Disposition: Admitted As Inpatient Admit Provider: Stephanie Lock Clinical Impression: Acute hyponatremia, Hyperbilirubinemia, DOMINIQUE (acute kidney injury), Acidosis, lactic, Acute hyperkalemia, Acute dehydration, Ascites Condition: Stable Interventions: ED Discharge Assessment Last Done: 11/17/19 21:09 ED Charges Last Done: 11/17/19 21:09 Coding Level of Care Code ED Senior Ui Designer for Chg Fwd Exam Comprehensive
--- NOTE | 2019-11-17 18:24 | PC.NURSE ---
patient had 1 liter per ems for a total of 3 liters
[2019-11-17 18:49] LABS: Lactic Sepsis W/Reflex 6.5 mmol/L (0.5-2.2)
[2019-11-17 19:09] LABS: Anion Gap 21.9 (5-19); Blood Urea Nitrogen 37 mg/dL (6-20); Calcium 8.2 mg/dL (8.5-10.5); Carbon Dioxide 10 mmol/L (22-29); Chloride 89 mmol/L (98-107); Glucose 112 mg/dL (65-115); Osmolality Calculated 249 mOsm/kg (285-295); Potassium 5.9 mmol/L (3.5-5.1)
[2019-11-17 19:19] LABS: Sodium 115 mmol/L (136-145)
--- NOTE | 2019-11-17 20:02 | P.HP_ITS ---
Providers/Chief Complaint Admitting Physician: Jerrica Primary Care Provider: Alex Beckwith MD Chief Complaint: ABD PAIN X 2 WEEKS History of Present Illness Kavitha Reyes is a 59 year old female who presented to the emergency room with chief complaint of not feeling well for several days. She has end-stage liver disease and has been followed recently by Dr. Beckwith in the outpatient setting. She had her first paracentesis for ascites on October 05. At that point time she had 4100 cc of fluid removed. Her second paracentesis was on November 12. She had 5600 cc of fluid removed. I am not sure what her baseline functioning is but she says that since she had paracentesis last week she has not felt well. She states that she has not been able to move . She has had chills but is not sure if she is had any fever. She has had increasing abdominal pain. No appetite. She had been constipated but had some mucoid-like stools this past Sunday. She is not noted any blood. She has had a few episodes of vomiting with the most recent being this morning. No blood in any vomitus. She has had some burning with urination. General malaise. Because she was not getting any better she presented to the emergency room today. Abdominal pain she describes as severe. It is worse with any form of movement or abdominal palpation. She does report a cough, is a known smoker. Cough has been increased last few days and she does have increased mucus production as well. Denies any known sick contacts. No loss of taste or smell. Has not been out. In the emergency room she was found to have multiple abnormal laboratory studies including an elevated lactic acid, low sodium, and elevated bilirubin level. She is being admitted for further evaluation and treatment. Review of Systems Const: Reports: chills, change in appetite, fatigue, malaise and diaphoresis; Denies: fever(s) Eyes: Denies: change in vision ENMT: Reports: dry mouth and nasal congestion; Denies: throat pain Card: Denies: chest pain, palpitations or edema Resp: Reports: productive cough and non-productive cough; Denies: dyspnea GI: Reports: abdominal pain, nausea, vomiting and constipation; Denies: diarrhea : Reports: dysuria and urinary frequency Musc: Reports: other (Generalized aches and pains) Skin/Breast: Denies: rash, pruritus or sores Neuro: Denies: headache(s), numbness in extremities, weakness in extremities, dizziness or seizure-like activity (Last anxiety induced seizure was about 2 mo nths ago) Psych: Reports: anxiety; Denies: depression Ryan/Lymph: Denies: easy bruising or easy bleeding Medications/Allergies Home Medications Medication Instructions Recorded Confirmed Last Taken Type Levemir FlexTouch U-100 Insuln 65 unit SUBCUT BID 10/05/19 11/17/19 10/05/19 History furosemide [Lasix] 40 mg PO DAILY 10/05/19 11/17/19 11/13/19 History hydroxyzine HCl 25 - 50 mg PO BEDTIME 10/05/19 11/17/19 10/04/19 History insulin aspart U-100 [Novolog 20 unit SUBCUT BID 10/05/19 11/17/19 10/05/19 History Flexpen U-100 Insulin] magnesium oxide [MagOx] 400 mg PO DAILY 10/05/19 11/17/19 11/13/19 History ondansetron HCl [Zofran] 8 mg PO Q6H PRN 10/05/19 11/17/19 Unknown History potassium chloride 20 meq PO DAILY 10/05/19 11/17/19 10/05/19 History spironolactone 50 mg PO BID 10/05/19 11/17/19 10/05/19 History tizanidine 2 mg PO BEDTIME 10/05/19 11/17/19 10/04/19 History oxycodone 5 mg capsule 5 mg PO Q8H PRN 30 Days #60 cap 10/22/19 11/17/19 11/15/19 Rx aripiprazole 5 mg tablet 5 mg PO DAILY #30 tab 11/05/19 11/17/19 Unknown Rx pantoprazole 40 mg tablet,delayed 40 mg PO DAILY #90 tab 11/05/19 11/17/19 11/14/19 Rx release Anti-Diarrheal (loperamide) See Rx Instructions .ROUTE .COMPLEX 11/17/19 11/17/19 Unknown History Stool Softener 1 - 2 cap PO PRN 11/17/19 11/17/19 Unknown History Xopenex HFA 2 inh INHALATION Q6H PRN 11/17/19 11/17/19 Unknown History propylene glycol [Systane Complete] See Rx Instructions .ROUTE .COMPLEX 11/17/19 11/17/19 Unknown History Allergies Allergy/AdvReac Type Severity Reaction Status Date / Time celecoxib [From Celebrex] Allergy Unknown Verified 11/17/19 13:08 chlorpromazine Allergy Unknown Verified 11/17/19 13:08 [From Thorazine] citalopram [From Celexa] Allergy Unknown Verified 11/17/19 13:08 codeine Allergy Unknown Verified 11/17/19 13:08 duloxetine [From Cymbalta] Allergy ADR-Nightma Verified 11/17/19 13:08 re ketorolac [From Toradol] Allergy Unknown Verified 11/17/19 13:08 NSAIDS (Non-Steroidal Allergy Unknown Verified 11/17/19 13:08 Anti-Inflamma tramadol Allergy ADR-Halluci Verified 11/17/19 13:08 nating PFSH Acute PFSH: Medical History (Updated 11/18/19 @ 01:02 by Mitzi Becerril MD) Adrenal nodule bilateral, 21mm R, 19mm L, noted on CT imaging 10/2019 Anxiety COPD (chronic obstructive pulmonary disease) Diabetes History of such, not currently on any treatment, hemoglobin A1c done on and 10/06/2019 were 5.3 and 5.5 respectively. 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 Surgical History (Updated 11/17/19 @ 20:43 by Mitzi Becerril MD) History of colonoscopy History of laparoscopic cholecystectomy History of repair of left rotator cuff Hx of appendectomy Family History Other Diabetes Social History (Updated 11/18/19 @ 01:14 by Mitzi Becerril MD) Smoking and tobacco status: current every day smoker Alcohol intake: former Substance/Drug Use: never Household members: family History of recent travel: No Vitals/I&O/Wt Last Vital Signs Temp 98.0 F 11/17/19 11:33 Pulse 80 11/17/19 19:14 Resp 15 11/17/19 19:14 BP 102/71 11/17/19 19:14 Pulse Ox 96 11/17/19 19:14 11/17/19 11/17/19 11/17/19 06:59 14:59 22:59 Intake Total 1999 Balance 1999 Weight last 48 hrs Weight 109.769 kg Physical Exam Const: OTHER: Alert, oriented x3, cooperative, chronically ill appearance with mild acute ill appearance HENMT: OTHER: Normocephalic atraumatic, dry mucous membranes Eye: OTHER: Pupils equally round and reactive to light, icteric sclera, extraocular movements are intact Neck/C-Spine: OTHER: Supple, large, no gross adenopathy appreciated Resp: OTHER: Slightly coarse breath sounds bilaterally, clears with coughing, no accessory muscle use, equal aeration bilaterally Cardio: OTHER: Mildly tachycardic but regular rhythm, no audible murmurs or rubs the heart sounds are distant, pulses are 2+ and equal throughout. Brisk capillary refill at toes. Anasarca most prominently noted in the abdominal wall. GI: OTHER: Abdomen is soft, tender to palpation throughout with some voluntary guarding and mild rebound noted, no tympany. Difficult to get patient into an appropriate position to adequately assess fluid status. Bowel sounds are decreased but present. Striae is noted. No ecchymotic areas. : OTHER: Dey catheter is in place with dark orange-yellow urine Extremity: NARRATIVE EXTREMITY EXAM: Patient with clubbing noted, equal lower extremity edema, no apparent acute synovitis Neuro: OTHER: Face symmetric, speech clear, moves all extremities, no tremors or other involuntary movements noted Psych: OTHER: Normal affect Skin: OTHER: Patient has a bronze coloration to the skin, icterus. Skin is dry. No open wounds are appreciated. Disheveled hands and feet. Urinary Catheter Management^: Dey: Cath Placed During This Visit: yes Reason for Continuing Indwelling Catheter: Not indwelling catheter Urinary Catheter Date of Insertion: 11/17/19 Urinary Catheter Time of Insertion: 15:34 Data : 11/17/19 12:48 11/17/19 18:20 Micro: Microbiology 11/17/19 12:48 Blood Culture - Preliminary Blood SPECIMEN COLLECTED 11/17/19 12:48 Blood Culture - Preliminary Blood SPECIMEN COLLECTED A&P Assessment and plan (1) Acute abdominal pain: In a patient with known end-stage liver disease. She status post recent paracentesis. Have to keep in mind possibility of SBP. CT of the abdomen and pelvis however shows evidence of inflamed jejunum suggestive of possible jejunitis and as well as possible acute gastritis. She has been constipated recently though had some mucoid-like bowel movements on Sunday. She also describes symptoms of possible urinary infection though urinalysis looks to be a contaminated specimen with significant epithelial cells. Nitrates were negative the leukocyte esterase was positive. Abdominal pain is associated with general malaise, chills and sweats though unclear if she has had any fever, none currently. She has baseline chronic hypotension, currently without specific change from baseline. She is intermittently tachycardic when moving around. I do not think that she is septic b certainly at risk for such. She has an elevated lactic acid, elevated white blood count. Status: Acute (2) Acute kidney injury: Currently suspect due to intravascular volume depletion the last few days along with continued use of her regular diuretic medications. Cannot rule out component of ATN due to hypotension and/or medications currently though it is something to keep in mind. Has associated hyperkalemia but is known to be on potassium replacement along with spironolactone. Status: Acute (3) Hyperbilirubinemia: Significant elevation of bilirubin to 18 compared to values last month that ranged from 3.5-5.5. She has slight increase in AST and ALT. Alkaline phosphatase is actually decreased from prior values. Reviewing medications does show that she was recently started on Abilify. I am not sure if this would contribute to this. No evidence of significant bruising or bleeding. Status: Acute (4) Hyponatremia: Acute on chronic. Clinically looks dry despite being total body volume overloaded. Baseline sodium levels are in the mid to upper 120s. She received fluids in the emergency room with further drop in her sodium level. She continues to have normal mentation however. Status: Acute (5) End stage liver disease: Has known thrombocytopenia, splenomegaly, hyperammonemia which is near her baseline, portal hypertension with CT identified varices and a left splenorenal shunt, ascites for which she recently started undergoing paracentesis, hypoproteinemia, elevated INR. Has been treated in the past for hepatitis C with recent values undetectable. Status: Chronic (6) COPD (chronic obstructive pulmonary disease): Potentially could have acute exacerbation though not clear currently Status: Chronic Qualifiers: COPD type: emphysema Emphysema type: unspecified Qualified Code(s): J43.9 - Emphysema, unspecified (7) Thrombocytopenia: Near baseline Status: Chronic (8) Anxiety: With a history of anxiety induced seizures, last seizure about 2 months ago. Currently doing okay. Looks to have recently been started on some Abilify low-dose. Status: Chronic Additional A&P Information Other diagnoses: Hyperkalemia Lactic acidosis Hypochloremia Hypocarbia Hypo-osmolality Hyperammonemia a bit above baseline Elevated CRP Hypoproteinemia Abnormal urinalysis suspicious for contaminated specimen Morbid obesity with BMI of 40 Suspected contribution of obesity hypoventilation chronically History of diabetes mellitus though not currently on any insulin therapy with recent A1c of 5.3 Inpatient admission, with care to start in the intensive care unit given the degree of bilirubin elevation and overall clinical appearance Attempted paracentesis in the emergency room was not successful. Given the degree of abdominal pain, elevated lactic acid, mild elevation in white count with increase in neutrophils I will go on and empirically cover her with antibiotics to include Rocephin and vancomycin presently Blood cultures were collected in the emergency room Hold spironolactone, Lasix and potassium which her home medications currently that I expect will need to get diuretics back on board at some point In the interim we will give some low volume IV fluids Serial laboratory studies Check uric acid and urine electrolytes Check ABG given the degree of hypocarbia Continue Dey catheter for close monitoring of urine output in this critically ill patient Lactulose which will cover not only recent constipation but also hyperammonemia Pain control as needed but need to try to limit the amount of narcotics to lessen the impact of constipation on her abdominal pain Oral PPI Sliding scale insulin if needed. Patient's home medication list indicates that she is on insulin chronically but she denies taking any of that presently stating that she no longer has diabetes. Hold home Abilify until we know it is not contributor to the acute issues given its recent initiation Breathing treatments if needed With the respiratory symptoms that she describes will go on and do a rapid COVID test I have ordered appropriate isolation in the interim SCDs for DVT prophylaxis no pharmacological DVT prophylaxis secondary to thrombocytopenia Clear liquid diet only for now Supportive care otherwise Monitor closely for any acute changes and adjust treatment plan accordingly Further care pending results of initial management Plans were discussed with patient and she was given an opportunity to ask questions Full code Attestations Medical Necessity Statement*: Anticipate hospital stay greater than 2 midnights and patient with multiple abnormalities as noted above. She requires close inpatient monitoring and management with IV fluids, IV antibiotics and serial labs. With her comorbid conditions and degree of hyperkalemia and hyperbilirubinemia at significant risk of rapid clinical decline without acute intervention. Coding Level of Care Code Acute Baffle Installer for Chg Fwd Diagnoses Acute abdominal pain R10.9 Acute kidney injury N17.9 Hyperbilirubinemia E80.6 Hyponatremia E87.1 End stage liver disease K72.90 COPD (chronic obstructive pulmonary disease) J43.9 COPD type: emphysema Emphysema type: unspecified Thrombocytopenia D69.6 Anxiety F41.9
[2019-11-17 20:08] LABS: Reflex Lactate Order REFLEX LACTIC ORDERD
[2019-11-17] MEDS: sodium chloride 3% 500 ML 30 ML IV (20:22)
[2019-11-17 20:53] LABS: INR 2.13 (0.8-1.2)
[2019-11-17 20:54] LABS: Partial Thromboplastin Time 38.8 SECONDS (23.9-36.7)
[2019-11-17] MEDS: morphine 4 mg/mL SDV 1 mL 2 MG IVP (22:28)
[2019-11-18] VITALS (146 sets, daily range): BP systolic 57–115; BP diastolic 21–71; PULSE 74–111; RESP 0–27; TEMP 36.6–37; O2SAT 89–96
--- NOTE | 2019-11-18 02:17 | PC.PHAR ---
Vancomycin is dosed at 1500mg IVPB every 24 hours to produce a predicted trough level of 12.15 (population based pharmacokinetic analysis). A trough level has been ordered from the lab to be obtained before the fourth dose to confirm and adjust if needed.
[2019-11-18 02:39] LABS: ABG PCO2 25.5 mmHg (35-45); ABG PH Result 7.35 (7.35-7.45); Arterial Blood Gas Hematocrit 35.4 % (37-47); Base Excess ABG -10.2 mmol/L (-2.0-2.0); Blood Gas Allen Test Pos; Blood Gas Sample Type Arterial; HCO3 ABG 13.9 mmol/L (22-26); PO2 ABG 59.7 mmHg (80.0-100.0)
[2019-11-18 02:40] LABS: Blood Gas Sample Site Radial, left; Oxygen Device ROOM AIR
[2019-11-18] MEDS: morphine 4 mg/mL SDV 1 mL 2 MG IVP ×4 (02:59→19:13)
[2019-11-18] MEDS: tizanidine 4 mg Tablet 2 MG PO (04:18)
[2019-11-18] MEDS: sodium chloride 0.9% 1,000 ML 75 ML IV (04:18)
[2019-11-18 04:26] LABS: Basophils # 0.1 10^3/uL (0.0-0.1); Basophils % 0.4 %; Eosinophils # 0.1 10^3/uL (0.0-0.8); Eosinophils % 0.8 %; Hematocrit 33.1 % (37.0-47.0); Hemoglobin 11.1 g/dL (11.5-15.3); Lymphocytes # 0.2 10^3/uL (0.8-4.8); Lymphocytes % 1.4 %; Mean Corpuscular HGB Conc 33.5 g/dL (30.0-36.0); Mean Corpuscular Hemoglobin 31.2 pg (28.0-34.0); Mean Platelet Volume 11.3 fL (7.4-10.4); Monocytes # 0.6 10^3/uL (0.2-0.9); Monocytes % 3.9 %; Neutrophils # 14.59 10^3/uL (1.8-7.7); Neutrophils % 92.5 %; Nucleated Red Blood Cells % 0 %; Platelet Count 74 10^3/cmm (130-400); Red Blood Count 3.56 10^6/uL (4.1-5.3); Red Cell Distribution Width 16.7 % (12.1-15.1); White Blood Count 15.8 10^3/uL (4.0-10.0)
[2019-11-18 04:37] LABS: INR 2.05 (0.8-1.2)
[2019-11-18 04:38] LABS: Partial Thromboplastin Time 36.6 SECONDS (23.9-36.7)
[2019-11-18 04:44] LABS: Anion Gap 19.6 (5-19); Blood Urea Nitrogen 38 mg/dL (6-20); C Reactive Protein 131.1 mg/L (0.0-4.9); Calcium 8.2 mg/dL (8.5-10.5); Carbon Dioxide 14 mmol/L (22-29); Chloride 90 mmol/L (98-107); Glomerular Filtration Rate 33.2 mL/min (90-130); Glucose 136 mg/dL (65-115); Magnesium 1.8 mg/dL (1.7-2.3); Osmolality Calculated 257 mOsm/kg (285-295); Potassium 5.6 mmol/L (3.5-5.1)
[2019-11-18 04:49] LABS: Lactate (Lactic Acid level) 5.4 mmol/L (0.5-2.2); Sodium 118 mmol/L (136-145)
[2019-11-18 04:50] LABS: SARS Covid-2 Antigen Negative (Negative)
[2019-11-18 04:54] LABS: Procalcitonin 9.07 ng/mL (0-0.5)
[2019-11-18 05:05] LABS: Alanine Aminotransferase 44 U/L (0-33); Albumin Level 2.5 g/dL (3.5-5.2); Alkaline Phosphatase 117 IU/L (35-105); Aspartate Amino Transferase 29 U/L (0-32); Globulin 2.2 g/dL (1.3-4.6); Total Protein 4.7 g/dL (6.6-8.7); Uric Acid 5.1 mg/dL (2.4-5.7)
--- NOTE | 2019-11-18 05:14 | PC.NURSE ---
IV ACCESS Patient transferred to unit with 24 gauge IV in right thumb. After multiple attempts at IV access, it was established via ultrasound guided. 18 gauge established in the right brachial vein. Once IV access established, IV medications were able to be administered and labs sent.
[2019-11-18 05:16] LABS: Lactate Dehydrogenase 178 U/L (135-214)
[2019-11-18 05:22] LABS: Total Bilirubin 23.1 mg/dL (0.15-1.2)
--- NOTE | 2019-11-18 05:46 | PC.NURSE ---
PHYSICIAN NOTIFIED Physician notified of critical lab values. Some improving and some increased. Physician called nurse to inform that she still wanted additional IV rocephin dose at 1512 today although patient already had IM dose this shift. Physician also wanted to call to clarify that patient had gotten adequate IV access and IV fluids had been started.
[2019-11-18 05:50] LABS: Creatinine Urine, Random 139 mg/dL (28-217)
--- NOTE | 2019-11-18 06:05 | PC.NURSE ---
HOME MEDICATIONS Patients home medications put in pyxis. Home medications reconciled.
--- NOTE | 2019-11-18 06:19 | PC.NURSE ---
SHIFT SUMMARY Patient admitted to unit last night at 2300. Patient has had moderate abominal pain throughout the night with one administration of 2 MG IV morphine. Patient had 450 mL urine output this shift. Physician notified of lab values. IV access established via ultrasound in right upper arm. Labs and IV medications began once access established. Patient alert and oriented to person, place, time and situation. Patient very pleasant.
[2019-11-18 06:48] LABS: Urine Random Sodium < 10 mmol/L
--- NOTE | 2019-11-18 07:40 | US_ITS ---
WS: [id number] Limited RIGHT upper quadrant ultrasound. HISTORY: Evaluate for portal vein thrombosis. Liver is small and shrunken. Portal vein is patent. This is a very limited evaluation of the portal v ein due to poor Doppler technique. There is flow above and below the baseline and the flow is pulsati le. I'm not sure this is accurate due to the poor Doppler interrogation angle. No thrombus is identif ied. There are changes of cirrhosis. There is a moderate amount of ascites. US/US abdomen limited [id number] IMPRESSION: 1. No portal vein thrombosis. 2. Moderate amount of ascites. Should be sufficient ascites for paracentesis.
[2019-11-18 07:54] LABS: Glucose Point of Care 122 mg/dL (70-110)
--- NOTE | 2019-11-18 09:00 | PC.NURSE ---
Dr notified of poor IV access potential. PIIC line ordered.
[2019-11-18] MEDS: lactobacillus 1 Tablet 1 TAB PO ×2 (09:25→17:21)
[2019-11-18] MEDS: lactulose oral liq 20 gm/30 mL UDC 30 GM PO ×2 (09:25→15:45)
[2019-11-18] MEDS: pantoprazole DR 40 mg Tablet PO (09:25)
--- NOTE | 2019-11-18 11:45 | PC.NURSE ---
Pt stated that she has not had running water for over 7 days d/t pipe issues. Several adults live in home and on property. [employer] Sp[employer]er consulted for possible d/c alternative home placement.
--- NOTE | 2019-11-18 12:59 | XR_ITS ---
WS: [id number] PORTABLE CHEST HISTORY: CENTRAL LINE PLACEMENT COMPARISON: 11/17/2019 RIGHT jugular line has been placed with tip ending over the RIGHT heart. Probably in the distal SVC R IGHT atrial junction. No complications. Improved aeration bilaterally. Less venous congestion. No pleural effusion or pneumothorax. Cardiac size: Normal. Mediastinum/Aorta: Normal mediastinum. No osseous abnormality seen. XR/XR chest 1V portable [id number] IMPRESSION: RIGHT central line has been placed with tip at the SVC RIGHT atrial junction.
--- NOTE | 2019-11-18 13:00 | PC.NURSE ---
notified of critical blood culture. Pt's persistent low DBP. New antibiotics ordered.
--- NOTE | 2019-11-18 13:09 | P.PN_ITS ---
Subjective Subjective: Interval history: Kavitha reports her whole abdomen hurts. She reported it was not any better when I saw her this morning. Medications: Reviewed: Yes Vitals/I&O/Wt Last Vital Signs Temp 97.8 F 11/18/19 03:39 Pulse 79 11/18/19 09:00 Resp 17 11/18/19 09:00 BP 97/51 11/18/19 09:00 Pulse Ox 91 11/18/19 09:00 11/17/19 11/18/19 11/18/19 22:59 06:59 14:59 Intake Total 1999 Output Total 450 / 450 Balance 1999 -450 / 1550 Weight last 48 hrs Weight 114.305 kg Weight 109.769 kg Physical Exam Narrative: EXAM NARRATIVE: General exam is apparent pain Cardiovascular regular rate and rhythm Lungs clear Abdomen distended, but not severely tight. Bowel sounds are heard Extremities no cyanosis clubbing. 1+ edema is noted Urinary Catheter Management^: Dey: Cath Placed During This Visit: yes Reason for Continuing Indwelling Catheter: Accurate Measurement of Urinary Output in Critically Ill Patients Urinary Catheter Date of Insertion: 11/17/19 Urinary Catheter Time of Insertion: 15:34 Data : 11/18/19 04:10 11/18/19 04:10 Micro: Microbiology 11/17/19 12:48 Blood Culture - Preliminary Blood NEGATIVE TO DATE 11/17/19 12:48 Blood Culture - Preliminary Blood Gram Negative Rods A&P Assessment and plan (1) Acute abdominal pain: Likely secondary to SBP Since this morning her blood culture is growing gram-negative rods. I am going to change her Rocephin to Primaxin. An abdominal ultrasound with duplex was done, ensuring she did not have portal vein thrombosis. If she stabilizes, consider paracentesis tomorrow for small amount of fluid Await blood culture ID and sensitivity Status: Acute (2) Acute kidney injury: Secondary to sepsis, dehydration. Cannot rule out hepatorenal syndrome at this time. Creatinine and potassium appear to be improving from admission but awaiting repeat blood work currently. Status: Acute (3) Hyperbilirubinemia: Likely secondary to sepsis, in the face of underlying severe liver disease. Continue to follow closely Status: Acute (4) Hyponatremia: Continue current fluids, normal saline. Await repeat sodium which is pending. A PICC line is being placed to facilitate frequent blood draws as they have not been able to draw her 10 AM lab secondary to access. Status: Acute (5) End stage liver disease: Secondary to hepatitis C. Bilirubin significantly elevated from baseline currently. Status: Chronic (6) COPD (chronic obstructive pulmonary disease): Stable currently on room air without exacerbation Status: Chronic Qualifiers: COPD type: emphysema Emphysema type: unspecified Qualified Code(s): J43.9 - Emphysema, unspecified (7) Thrombocytopenia: At baseline Status: Chronic (8) Anxiety: Appears to be stable currently Status: Chronic Additional A&P Information Sepsis. Continue vancomycin, Primaxin Hyperkalemia. Awaiting repeat potassium level. Holding Aldactone. Elevated lactic acid, consistent with her sepsis and renal failure. Await any repeat lactic acid level. Doubt ischemic bowel but certainly within the differ ential. CT scan did not suggest this. Likely obesity hypoventilation Type 2 diabetes, currently on no therapy with recent normal A1c History of diabetes mellitus though not currently on any insulin therapy with recent A1c of 5.3 SCDs for DVT prophylaxis secondary to thrombocytopenia Full code Attestations Medical Necessity Statement*: Needs continued hospital stay secondary to sepsis requiring IV antibiotics Critical Care Time: 54 minutes spent in critical care time reviewing H&P, physical exam, reviewing multiple studies throughout the day and this acutely ill patient with sepsis, liver and renal failure with high probability of morbidity and mortality. Coding Level of Care Code Acute [employer] Sales Development Associate for g Fwd Diagnoses Acute abdominal pain R10.9 Acute kidney injury N17.9 Hyperbilirubinemia E80.6 Hyponatremia E87.1 End stage liver disease K72.90 COPD (chronic obstructive pulmonary disease) J43.9 COPD type: emphysema Emphysema type: unspecified Thrombocytopenia D69.6 Anxiety F41.9
--- NOTE | 2019-11-18 14:20 | PM.ACPR ---
Procedure/Consent Time out: Time Out Performed: Yes Consent: Consent for Procedure: Consent obtained from patient Acute Procedures Central Line Placement^: Right IJ: Time out performed: Yes Patient placed on monitor/pulse ox: Yes MD prep: mask, gown and gloves Central line prep: Chlorhexidine scrub and sterile drapes applied Local anesthesia used: lidocaine 1% Amount of anesthesia used (ml): 2.0 Ultrasound used for placement: Yes Central line lumen inserted: triple Post procedure: sutured in place Post procedure x-ray: tip of catheter in good position Patient tolerated procedure: well Complications: none Additional comments: Wire was visualized inside the IJ. Dr. Card to the procedure, with me assisting. Estimated blood loss less than 5 cc. No immediate complications. Will review x-ray with radiology as well. Epistaxis Control: Time out performed: Yes
[2019-11-18 15:02] LABS: Anion Gap 19.2 (5-19); Blood Urea Nitrogen 42 mg/dL (6-20); Calcium 8.3 mg/dL (8.5-10.5); Carbon Dioxide 14 mmol/L (22-29); Chloride 89 mmol/L (98-107); Glomerular Filtration Rate 24.3 mL/min (90-130); Glucose 107 mg/dL (65-115); Osmolality Calculated 253 mOsm/kg (285-295); Potassium 6.2 mmol/L (3.5-5.1)
[2019-11-18 15:06] LABS: Sodium 116 mmol/L (136-145)
--- NOTE | 2019-11-18 15:07 | PC.NURSE ---
central line inserted via right internal juglar by anesthesia. carlos. fair. iv fluids to medial port. labs sent. prior to fluids tothis site.
--- NOTE | 2019-11-18 15:38 | PC.NURSE ---
antibiotic primaxin hung at 1430. was scanned but apparently didnt work or didnt save.
[2019-11-18] MEDS: insulin regular-human 10 UNIT in SYRINGE 1 EACH IVP (16:20)
[2019-11-18] MEDS: calcium chloride 10% Syr 10 mL 1 GM IVP (16:21)
[2019-11-18] MEDS: dextrose 50% syringe 50 mL IVP (16:22)
[2019-11-18 16:56] LABS: Cortisol Random 27.14 ug/mL (2.47-19.5)
--- NOTE | 2019-11-18 17:04 | PM.CONSULT ---
Providers/Reason For Consult Consulting Physican/Specialty*: Nephro Reason for Consult*: DOMINIQUE, HypoNa and acidosis Attending Physician: Adrian Ha MD Primary Care Provider: Alex Beckwith MD History of Present Illness History of Present Illness Kavitha Reyes is a 59 year old female who presented with severe abdominal pain. She had a recent admission in September for a similar complaint, although no organisms grew out on culture. She now has GNRs in her blood. Creatinine increasing since admission, now up to 2.1, urine output just 450mL. Sodium low since admission and remains in high teens while on isotonic ivf. Urine Sp Grav noted to be 1.02, urine osmo pending and urine sodium < 10. K also 6.2, s/p Kayexalate, D5 and insulin today, repeat levels are pending. Acidosis noted with Bicarb levels down at 14. Now receiving NS at 50ml/hr, Albumin 50g. She been started on broad coverage with Vanco and Primaxin. Established ESLD from history of Hepatitis C. Last drank alcohol 1 year ago, trying to get onto a liver transplant list. Minimal edema in the arms and legs, ascites is present in the abdomen. Home meds includes diuretic combo in addition to K replacement. Meds/Allergies Home Medications and Allergies Home Medications Medication Instructions Recorded Confirmed Last Taken Type Levemir FlexTouch U-100 Insuln 65 unit SUBCUT BID 10/05/19 11/17/19 10/05/19 History furosemide [Lasix] 40 mg PO DAILY 10/05/19 11/17/19 11/13/19 History hydroxyzine HCl 25 - 50 mg PO BEDTIME 10/05/19 11/17/19 10/04/19 History insulin aspart U-100 [Novolog 20 unit SUBCUT BID 10/05/19 11/17/19 10/05/19 History Flexpen U-100 Insulin] magnesium oxide [MagOx] 400 mg PO DAILY 10/05/19 11/17/19 11/13/19 History ondansetron HCl [Zofran] 8 mg PO Q6H PRN 10/05/19 11/17/19 Unknown History potassium chloride 20 meq PO DAILY 10/05/19 11/17/19 10/05/19 History spironolactone 50 mg PO BID 10/05/19 11/17/19 10/05/19 History tizanidine 2 mg PO BEDTIME 10/05/19 11/17/19 10/04/19 History oxycodone 5 mg capsule 5 mg PO Q8H PRN 30 Days #60 cap 10/22/19 11/17/19 11/15/19 Rx aripiprazole 5 mg tablet 5 mg PO DAILY #30 tab 11/05/19 11/17/19 Unknown Rx pantoprazole 40 mg tablet,delayed 40 mg PO DAILY #90 tab 11/05/19 11/17/19 11/14/19 Rx release Anti-Diarrheal (loperamide) See Rx Instructions .ROUTE .COMPLEX 11/17/19 11/17/19 Unknown History Stool Softener 1 - 2 cap PO PRN 11/17/19 11/17/19 Unknown History Xopenex HFA 2 inh INHALATION Q6H PRN 11/17/19 11/17/19 Unknown History propylene glycol [Systane Complete] See Rx Instructions .ROUTE .COMPLEX 11/17/19 11/17/19 Unknown History Allergies Allergy/AdvReac Type Severity Reaction Status Date / Time celecoxib [From Celebrex] Allergy Unknown Verified 11/17/19 13:08 chlorpromazine Allergy Unknown Verified 11/17/19 13:08 [From Thorazine] citalopram [From Celexa] Allergy Unknown Verified 11/17/19 13:08 codeine Allergy Unknown Verified 11/17/19 13:08 duloxetine [From Cymbalta] Allergy ADR-Nightma Verified 11/17/19 13:08 re ketorolac [From Toradol] Allergy Unknown Verified 11/17/19 13:08 NSAIDS (Non-Steroidal Allergy Unknown Verified 11/17/19 13:08 Anti-Inflamma tramadol Allergy ADR-Halluci Verified 11/17/19 13:08 nating Current Medications Current Medications Generic Name Dose Route Start Last Admin Trade Name Freq PRN Reason Stop Dose Admin Vancomycin HCl 1,500 mg/ 250 mls @ 250 mls/hr 11/18/19 03:00 11/18/19 04:19 Sodium Chloride IV 250 mls/hr Q24H HUGO Administration Protocol As Directed Sodium Chloride 1,000 mls @ 50 mls/hr 11/18/19 01:57 11/18/19 16:00 Sodium Chloride 0.9% IV 50 mls/hr .Q20H HUGO Infusion Imipenem/Cilastatin Sodium 500 100 mls @ 200 mls/hr 11/18/19 14:00 11/18/19 16:26 mg/ Sodium Chloride IV Infused Q8H HUGO Infusion Protocol Albumin Human 50 gm in 200 mls @ 60 mls/hr 11/18/19 15:30 11/18/19 16:19 Albumin IV 60 mls/hr Q8H HUGO Administration Insulin Aspart 0 unit 11/18/19 08:00 11/18/19 15:57 Novolog SUBCUT Not Given TIDWM HUGO Protocol Lactobacillus Acidophilus 1 tab 11/18/19 09:00 11/18/19 09:25 Floranex PO 1 tab BID HUGO Administration Lactulose 30 gm 11/18/19 09:00 11/18/19 15:45 Constulose PO 30 gm TID HUGO Administration Morphine Sulfate 2 mg 11/18/19 01:57 11/18/19 15:00 Morphine IVP 2 mg Q4H PRN Administration SEVERE PAIN Pantoprazole Sodium 40 mg 11/18/19 09:00 11/18/19 09:25 Protonix PO 40 mg DAILY HUGO Administration Tizanidine HCl 2 mg 11/18/19 01:57 11/18/19 04:18 Zanaflex PO 2 mg BEDTIME PRN Administration MUSCLE SPASMS PFSH Acute PFSH: Medical History (Updated 11/18/19 @ 01:02 by Mitzi Becerril MD) Adrenal nodule bilateral, 21mm R, 19mm L, noted on CT imaging 10/2019 Anxiety COPD (chronic obstructive pulmonary disease) Diabetes History of such, not currently on any treatment, hemoglobin A1c done on and 10/06/2019 were 5.3 and 5.5 respectively. 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 Surgical History (Updated 11/17/19 @ 20:43 by Mitzi Becerril MD) History of colonoscopy History of laparoscopic cholecystectomy History of repair of left rotator cuff Hx of appendectomy Family History Other Diabetes Social History (Updated 11/18/19 @ 01:14 by Mitzi Becerril MD) Smoking and tobacco status: current every day smoker Alcohol intake: former Substance/Drug Use: never Household members: family History of recent travel: No Female Reproductive History: Date of last menstrual period: 11/03/09 Vitals/I&O/Wt Last Vital Signs Temp 97.8 F 11/18/19 03:39 Pulse 99 11/18/19 16:16 Resp 16 11/18/19 16:16 BP 78/50 11/18/19 13:00 Pulse Ox 93 11/18/19 16:16 11/18/19 11/18/19 11/18/19 06:59 14:59 22:59 Intake Total 977.5 / 977.5 Output Total 450 / 450 Balance -450 / 1550 977.5 / 977.5 Weight last 48 hrs Weight 114.305 kg Weight 109.769 kg Physical Exam Const: GENERAL APPEARANCE: in distress NUTRITIONAL APPEARANCE: overweight Neck/C-Spine: COMMON NORMALS: no JVD Lymph: LYMPHATIC: no lymphadenopathy noted Chest: COMMONS NORMALS: normal inspection of the chest and normal palpation of entire chest wall Resp: COMMON NORMALS: normal respiratory effort, No retractions and No use of accessory muscles Cardio: COMMON NORMALS: no JVD, regular rate and regular rhythm RATE: regular rate RHYTHM: regular rhythm GI: OTHER: Distended, diffuse tenderness, ascites Urinary Catheter Management^: Dey: Cath Placed During This Visit: yes Reason for Continuing Indwelling Catheter: Accurate Measurement of Urinary Output in Critically Ill Patients Urinary Catheter Date of Insertion: 11/17/19 Urinary Catheter Time of Insertion: 15:34 Data Micro: Micro: Microbiology 11/17/19 12:48 Blood Culture - Pr eliminary Blood NEGATIVE TO ANT E 11/17/19 12:48 Blood Culture - Pr eliminary Blood Gram Negative R ods A&P Additional A&P Information 1. DOMINIQUE - labs consistent with renal hypoperfusion; s/p > 2L of volume and hence this is most consistent with HRS type 1 - of note SBP is a know precipitant for HRS - Will give some volume this evening, midodrine. Defer Octreotide given hyperkalemia (this can increase serum potassium) - iv Albumin - repeat labs at 8pm - no further diagnostic testing is required from my perspective in this regard - she is potentially a transplant candidate and will therefore qualify for dialysis therapy if indicated ie if hyperkalemia becomes recalcitrant to medical therapy - avoid the usuals 2. Lytes - HypoNa; due to liver failure and renal failure - severe AGMA - Will give 1/2NS with 150mEq sodium bicarb; of note this is purposefully hypertonic - Q8 BMP - HyperK s/p temporizing therapy, recheck at 8pm 3. SBP - GNR bacteremia; final cultures pending - 4020 WBCs noted back in Sep - ? repeat diagnostic paracentesis - Primaxin and Vanco on board 4. ESLD - high MELD and high mortality risk - may qualify for liver transplant urgently - possible transfer to [place] - case d/w Bedside RN, Dr Ha - Thank you for consult, it is a pleasure to follow these cases with you Jeff Johnson MD [facility], Telemed - exam and interview conducted via telemed Coding Level of Care Code Acute Department Chair for Rosana Freed
[2019-11-18] MEDS: sodium bicarbonate 150 MEQ in sodium chloride 0.45% 1,000 ML IV (17:15)
--- NOTE | 2019-11-18 17:17 | PC.NURSE ---
lactulose had been given
[2019-11-18] MEDS: hydrocortisone 100 mg/2 mL SDV IVP (17:21)
--- NOTE | 2019-11-18 17:35 | PM.TDS ---
Transfer Summary Providers Date of Admission: 11/17/19 19:29 Date of Discharge: 11/18/19 Attending Provider at Admission: Stephanie Lock MD Attending Provider at Transfer: Adrian Ha MD Primary Care Provider: Alex Beckwith MD Anticipated Date of Transfer: Anticipated date of transfer: 11/18/19 Receiving Facility & Provider: Receiving Provider: [Frances Huerta NP] Receiving facility: [[facility]] Diagnoses at Discharge Discharge Diagnosis (1) Acute abdominal pain: Status: Acute (2) Acute kidney injury: Status: Acute (3) Hyperbilirubinemia: Status: Acute (4) Hyponatremia: Status: Acute (5) End stage liver disease: Status: Chronic Problem details: with ascites (periodic paracentesis), hypersplenism, thrombocytopenia, portal hypertension with left splenorenal shunt and varices noted on CT imaging, hyperammonemia (60-70), hyponatremia (upper 120s), hypoproteinemia and hyperprothrombinemia (6) COPD (chronic obstructive pulmonary disease): Status: Chronic Qualifiers: COPD type: emphysema Emphysema type: unspecified Qualified Code(s): J43.9 - Emphysema, unspecified (7) Thrombocytopenia: Status: Chronic (8) Anxiety: Status: Chronic Reason for Visit Reason for Visit: ABD PAIN X 2 WEEKS Hospital Course Hospital Course: Kavitha is a 59-year-old white female who presented to the emergency department with approximately 1 week of abdominal discomfort. Blood pressure was somewhat soft. Had tenderness to abdominal exam. Sodium was critically low at 115 with potassium of 5.9 and creatinine of 1.7. Bicarb was 10. Bilirubin level was markedly elevated. She was admitted to the hospital with concern of SBP, sepsis. She was placed on IV antibiotics consisting of Rocephin and vancomycin. Attempted paracentesis was performed but unsuccessful at that time. She received IV fluids for hydration purposes. The following day there were issues with IV access, slowing the ability to repeat her morning labs. Eventually IV access was obtained with a central line right IJ. Repeat laboratory demonstrated sodium essentially unimproved at 116, potassium of 6.2, creatinine of 2.1. Urine output had slowed down. Bilirubin had increased to 23. Blood culture was growing gram-negative rods. Aggressive treatment of potassium ensued, hydrocortisone was given, albumin was given. I discussed her case with [facility] regarding her liver and kidney failure, with need for hepatology management in this patient with severe liver failure. They graciously accepted care, when bed availability allowed. In the interim I have consulted nephrology for consideration of further electrolyte management, possible midodrine and octreotide treatment. At time of this dictation vital signs were stable. She was afebrile. Systolic blood pressure 100, heart rate 100 and on 2 L per nasal cannula. She was maintaining her own airway. Other studies done while in the hospital including a CT abdomen and pelvis, with question of jejunitis. No evidence of free air. Cirrhosis and intraperitoneal ascites noted. Abdominal ultrasound with duplex demonstrated no evidence of portal vein thrombosis. Physical Exam Narrative: EXAM NARRATIVE: See exam from progress note done just hours earlier, no overall changes. Urinary Catheter Management^: Dey: Cath Placed During This Visit: yes Reason for Continuing Indwelling Catheter: Accurate Measurement of Urinary Output in Critically Ill Patients Urinary Catheter Date of Insertion: 11/17/19 Urinary Catheter Time of Insertion: 15:34 TS Data Data Completed and Pending: Completed Studies During Hospitalization Category Date Time Status CT abdomen pelvis wo con [id number] Urge nt Cat Scan 11/17/19 13:48 Completed CXRP [XR chest 1V portable [id number]] S tat Exams 11/18/19 12:59 Completed XR chest 1V wander ble [id number] Stat Exams 11/17/19 14:49 Completed US abdomen limite d 40100 Routine Ultrasound 11/18/19 07:40 Completed Pending at discharge Category Date Time Status Blood Culture Sta t Lab 11/17/19 12:48 Results Complete Blood Co unt w/Auto AM LABS Lab 11/19/19 04:00 Ordered Comprehensive Met abolic Panel AM LA BS Lab 11/19/19 04:00 Ordered Magnesium AM LABS Lab 11/19/19 04:00 Ordered Phosphorus AM LAB S Lab 11/19/19 04:00 Ordered Renal Function Pa sisi Q8HWA Lab 11/18/19 22:00 Ordered Renal Function Pa sisi Q8HWA Lab 11/19/19 06:00 Ordered Renal Function Pa sisi Q8HWA Lab 11/19/19 14:00 Ordered Renal Function Pa sisi Q8HWA Lab 11/19/19 22:00 Ordered Renal Function Pa sisi Q8HWA Lab 11/20/19 06:00 Ordered Renal Function Pa sisi Q8HWA Lab 11/20/19 14:00 Ordered Vancomycin Trough Timed Lab 11/21/19 02:00 Ordered Labs from last 24 hours 11/18/19 11/18/19 11/18/19 15:50 14:20 14:20 WBC RBC Hgb Hct MCV MCH MCHC RDW Plt Count MPV Neut % (Auto) Lymph % (Auto) [place] % (Auto) Eos % (Auto) Baso % (Auto) Neut # (Auto) Lymph # (Auto) [place] # (Auto) Eos # (Auto) Baso # (Auto) Nucleated RBC % (a uto) Nucleated RBCs # PT INR APTT Specimen Type Sample Site ABG pH ABG pCO2 ABG pO2 ABG HCO3 ABG Base Excess Baljinder Test Hematocrit O2 Delivery Device Marine Equipment Test Engineer ID Sodium 116 L* Potassium 6.2 H Chloride 89 L Carbon Dioxide 14 L Anion Gap 19.2 H BUN 42 H Creatinine 2.1 H GFR Calculation 24.3 L Glucose 107 POC Glucose Calculated Osmolal ity 253 L Lactic Acid Lactate 4.0 H Uric Acid Calcium 8.3 L Phosphorus Magnesium Total Bilirubin Direct Bilirubin AST ALT Alkaline Phosphata se Lactate Dehydrogen ase C-Reactive Protein Total Protein Albumin Globulin Procalcitonin Random Cortisol 27.14 H Ur Random Sodium Urine Creatinine SARS-CoV-2 Ag (Rap id) 11/18/19 11/18/19 11/18/19 07:49 04:10 04:10 WBC RBC Hgb Hct MCV MCH MCHC RDW Plt Count MPV Neut % (Auto) Lymph % (Auto) [place] % (Auto) Eos % (Auto) Baso % (Auto) Neut # (Auto) Lymph # (Auto) [place] # (Auto) Eos # (Auto) Baso # (Auto) Nucleated RBC % (a uto) Nucleated RBCs # PT INR APTT Specimen Type Sample Site ABG pH ABG pCO2 ABG pO2 ABG HCO3 ABG Base Excess Baljinder Test Hematocrit O2 Delivery Device Marine Equipment Test Engineer ID Sodium Potassium Chloride Carbon Dioxide Anion Gap BUN Creatinine GFR Calculation Glucose POC Glucose 122 Calculated Osmolal ity Lactic Acid Lactate Uric Acid Calcium Phosphorus Magnesium Total Bilirubin Direct Bilirubin AST ALT Alkaline Phosphata se Lactate Dehydrogen ase C-Reactive Protein Total Protein Albumin Globulin Procalcitonin Random Cortisol Ur Random Sodium < 10 Urine Creatinine 139 SARS-CoV-2 Ag (Rap id) 11/18/19 11/18/19 11/18/19 04:10 04:10 04:10 WBC RBC Hgb Hct MCV MCH MCHC RDW Plt Count MPV Neut % (Auto) Lymph % (Auto) [place] % (Auto) Eos % (Auto) Baso % (Auto) Neut # (Auto) Lymph # (Auto) [place] # (Auto) Eos # (Auto) Baso # (Auto) Nucleated RBC % (a uto) Nucleated RBCs # PT 23.90 H INR 2.05 H APTT 36.6 Specimen Type Sample Site ABG pH ABG pCO2 ABG pO2 ABG HCO3 ABG Base Excess Baljinder Test Hematocrit O2 Delivery Device Marine Equipment Test Engineer ID Sodium Potassium Chloride Carbon Dioxide Anion Gap BUN Creatinine GFR Calculation Glucose POC Glucose Calculated Osmolal ity Lactic Acid Lactate 5.4 H* Uric Acid Calcium Phosphorus 5.0 H Magnesium Total Bilirubin Direct Bilirubin AST ALT Alkaline Phosphata se Lactate Dehydrogen ase C-Reactive Protein Total Protein Albumin Globulin Procalcitonin Random Cortisol Ur Random Sodium Urine Creatinine SARS-CoV-2 Ag (Rap id) 11/18/19 11/18/19 11/18/19 04:10 04:10 04:10 WBC 15.8 H RBC 3.56 L Hgb 11.1 L Hct 33.1 L MCV 93.0 MCH 31.2 MCHC 33.5 RDW 16.7 H Plt Count 74 L MPV 11.3 H Neut % (Auto) 92.5 Lymph % (Auto) 1.4 [place] % (Auto) 3.9 Eos % (Auto) 0.8 Baso % (Auto) 0.4 Neut # (Auto) 14.59 H Lymph # (Auto) 0.2 L [place] # (Auto) 0.6 Eos # (Auto) 0.1 Baso # (Auto) 0.1 Nucleated RBC % (a uto) 0 Nucleated RBCs # 0.0 PT INR APTT Specimen Type Sample Site ABG pH ABG pCO2 ABG pO2 ABG HCO3 ABG Base Excess Baljinder Test Hematocrit O2 Delivery Device Marine Equipment Test Engineer ID Sodium 118 L* Potassium 5.6 H Chloride 90 L Carbon Dioxide 14 L Anion Gap 19.6 H BUN 38 H Creatinine 1.6 H GFR Calculation 33.2 L Glucose 136 H POC Glucose Calculated Osmolal ity 257 L Lactic Acid Lactate Uric Acid 5.1 Calcium 8.2 L Phosphorus Magnesium 1.8 Total Bilirubin 23.1 H* Direct Bilirubin > 15.40 H AST 29 ALT 44 H Alkaline Phosphata se 117 H Lactate Dehydrogen ase 178 C-Reactive Protein 131.1 H Total Protein 4.7 L Albumin 2.5 L Globulin 2.2 Procalcitonin 9.07 H Random Cortisol Ur Random Sodium Urine Creatinine SARS-CoV-2 Ag (Rap id) 11/18/19 11/18/19 11/17/19 04:10 02:28 18:20 WBC RBC Hgb Hct MCV MCH MCHC RDW Plt Count MPV Neut % (Auto) Lymph % (Auto) [place] % (Auto) Eos % (Auto) Baso % (Auto) Neut # (Auto) Lymph # (Auto) [place] # (Auto) Eos # (Auto) Baso # (Auto) Nucleated RBC % (a uto) Nucleated RBCs # PT INR APTT Specimen Type Arterial Sample Site Radial, left ABG pH 7.35 ABG pCO2 25.5 L ABG pO2 59.7 L ABG HCO3 13.9 L ABG Base Excess -10.2 L Baljinder Test Pos Hematocrit 35.4 L O2 Delivery Device Room air Marine Equipment Test Engineer ID vossa Sodium 115 L* Potassium 5.9 H Chloride 89 L Carbon Dioxide 10 L Anion Gap 21.9 H BUN 37 H Creatinine 1.7 H GFR Calculation 31.0 L Glucose 112 POC Glucose Calculated Osmolal ity 249 L Lactic Acid Lactate Uric Acid Calcium 8.2 L Phosphorus Magnesium Total Bilirubin Direct Bilirubin AST ALT Alkaline Phosphata se Lactate Dehydrogen ase C-Reactive Protein Total Protein Albumin Globulin Procalcitonin Random Cortisol Ur Random Sodium Urine Creatinine SARS-CoV-2 Ag (Rap id) Negative 11/17/19 11/17/19 18:20 12:48 WBC RBC Hgb Hct MCV MCH MCHC RDW Plt Count MPV Neut % (Auto) Lymph % (Auto) [place] % (Auto) Eos % (Auto) Baso % (Auto) Neut # (Auto) Lymph # (Auto) [place] # (Auto) Eos # (Auto) Baso # (Auto) Nucleated RBC % (a uto) Nucleated RBCs # PT 24.60 H INR 2.13 H APTT 38.8 H Specimen Type Sample Site ABG pH ABG pCO2 ABG pO2 ABG HCO3 ABG Base Excess Baljinder Test Hematocrit O2 Delivery Device Marine Equipment Test Engineer ID Sodium Potassium Chloride Carbon Dioxide Anion Gap BUN Creatinine GFR Calculation Glucose POC Glucose Calculated Osmolal ity Lactic Acid 6.5 H* Lactate Uric Acid Calcium Phosphorus Magnesium Total Bilirubin Direct Bilirubin AST ALT Alkaline Phosphata se Lactate Dehydrogen ase C-Reactive Protein Total Protein Albumin Globulin Procalcitonin Random Cortisol Ur Random Sodium Urine Creatinine SARS-CoV-2 Ag (Rap id) Vitals: Last Vital Signs Temp 98.6 F 11/18/19 14:15 Pulse 101 H 11/18/19 17:00 Resp 18 11/18/19 17:00 BP 106/54 11/18/19 17:00 Pulse Ox 92 11/18/19 17:00 TS Medications Medications Home Medications Levemir FlexTouch U-100 Insuln 65 unit SUBCUT BID 10/05/19 [History Confirmed 11/17/19] furosemide [Lasix] 40 mg PO DAILY 10/05/19 [History Confirmed 11/17/19] hydroxyzine HCl 25 - 50 mg PO BEDTIME 10/05/19 [History Confirmed 11/17/19] insulin aspart U-100 [Novolog Flexpen U-100 Insulin] 20 unit SUBCUT BID 10/05/19 [History Confirmed 11/17/19] magnesium oxide [MagOx] 400 mg PO DAILY 10/05/19 [History Confirmed 11/17/19] ondansetron HCl [Zofran] 8 mg PO Q6H PRN 10/05/19 [History Confirmed 11/17/19] potassium chloride 20 meq PO DAILY 10/05/19 [History Confirmed 11/17/19] spironolactone 50 mg PO BID 10/05/19 [History Confirmed 11/17/19] tizanidine 2 mg PO BEDTIME 10/05/19 [History Confirmed 11/17/19] oxycodone 5 mg capsule 5 mg PO Q8H PRN 30 Days #60 cap 10/22/19 [Rx Confirmed 11/17/19] aripiprazole 5 mg tablet 5 mg PO DAILY #30 tab 11/05/19 [Rx Confirmed 11/17/19] pantoprazole 40 mg tablet,delayed release 40 mg PO DAILY #90 tab 11/05/19 [Rx Confirmed 11/17/19] Anti-Diarrheal (loperamide) See Rx Instructions .ROUTE .COMPLEX 11/17/19 [History Confirmed 11/17/19] Stool Softener 1 - 2 cap PO PRN 11/17/19 [History Confirmed 11/17/19] Xopenex HFA 2 inh INHALATION Q6H PRN 11/17/19 [History Confirmed 11/17/19] propylene glycol [Systane Complete] See Rx Instructions .ROUTE .COMPLEX 11/17/19 [History Confirmed 11/17/19] Active Medications Albuterol/Ipratropium (Duoneb) 3 ml INHALATION Q6H PRN PRN Reason: SHORTNESS OF BREATH Dextrose (D50w) 25 ml IVP ONCE PRN; Protocol PRN Reason: hypoglycemia protocol Dextrose (D50w) 50 ml IVP PRN PRN; Protocol PRN Reason: hypoglycemia protocol Glucagon (Glucagen) 1 mg IM ONCE PRN; Protocol PRN Reason: Adult Acute Hypoglycemia Prot. Hydrocortisone Sodium Succinate (Solu-Cortef Inj) 50 mg IVP Q6H HUGO Hydroxyzine Pamoate (Vistaril) 25 mg PO BID PRN PRN Reason: ANXIETY Vancomycin HCl 1,500 mg/ (Sodium Chloride) 250 mls @ 250 mls/hr IV Q24H HUGO; Protocol Last Admin: 11/18/19 04:19 Dose: 250 mls/hr Documented by: Dextrose (D5w) 500 mls @ 100 mls/hr IV ONCE PRN; Protocol PRN Reason: Adult Acute Hypoglycemia Prot Sodium Chloride (Sodium Chloride 0.9%) 1,000 mls @ 50 mls/hr IV .Q20H HUGO Last Infusion: 11/18/19 16:00 Dose: 50 mls/hr Documented by: Imipenem/Cilastatin Sodium 500 (mg/ Sodium Chloride) 100 mls @ 200 mls/hr IV Q8H HUGO; Protocol Last Infusion: 11/18/19 16:26 Dose: Infused Documented by: Albumin Human (Albumin) 50 gm in 200 mls @ 60 mls/hr IV Q8H HUGO Last Admin: 11/18/19 16:19 Dose: 60 mls/hr Documented by: Sodium Bicarbonate 150 meq/ (Sodium Chloride) 1,150 mls @ 150 mls/hr IV CONT HUGO Last Admin: 11/18/19 17:15 Dose: 150 mls/hr Documented by: Insulin Aspart (Novolog) 0 unit SUBCUT BEDTIME HUGO; Protocol Insulin Aspart (Novolog) 0 unit SUBCUT TIDWM HUGO; Protocol Last Admin: 11/18/19 15:57 Dose: Not Given Documented by: Lactobacillus Acidophilus (Floranex) 1 tab PO BID HUGO Last Admin: 11/18/19 17:21 Dose: 1 tab Documented by: Lactulose (Constulose) 30 gm PO TID [facility] Last Admin: 11/18/19 15:45 Dose: 30 gm Documented by: Midodrine (Proamatine) 10 mg PO TID [facility] Morphine Sulfate (Morphine) 2 mg IVP Q4H PRN PRN Reason: SEVERE PAIN Last Admin: 11/18/19 15:00 Dose: 2 mg Documented by: Ondansetron HCl (Zofran) 4 mg PO Q6H PRN PRN Reason: Nausea Pantoprazole Sodium (Protonix) 40 mg PO DAILY [facility] Last Admin: 11/18/19 09:25 Dose: 40 mg Documented by: Tizanidine HCl (Zanaflex) 2 mg PO BEDTIME PRN PRN Reason: MUSCLE SPASMS Last Admin: 11/18/19 04:18 Dose: 2 mg Documented by: Discharge Plan Discharge Patient Disposition: Xfer Short-Term Hosp Condition: Stable Prescriptions: No Action oxycodone 5 mg capsule 5 mg PO Q8H PRN (Reason: pain) 30 Days Qty: 60 RF: 0 pantoprazole [Protonix] 40 mg tablet,delayed release (DR/EC) 40 mg PO DAILY Qty: 90 RF: 3 aripiprazole [Abilify] 5 mg tablet 5 mg PO DAILY Qty: 30 RF: 6 furosemide [Lasix] 40 mg Tablet 40 mg PO DAILY RF: 0 tizanidine 2 mg Tablet 2 mg PO BEDTIME RF: 0 ondansetron HCl [Zofran] 4 mg Tablet 8 mg PO Q6H PRN (Reason: Nausea) RF: 0 magnesium oxide [MagOx] 400 mg (241.3 mg magnesium) Tablet 400 mg PO DAILY RF: 0 hydroxyzine HCl 25 mg Tablet 25 - 50 mg PO BEDTIME RF: 0 spironolactone 50 mg Tablet 50 mg PO BID RF: 0 insulin aspart U-100 [Novolog Flexpen U-100 Insulin] 100 unit/mL (3 mL) Insulin Pen 20 unit SUBCUT BID RF: 0 Levemir FlexTouch U-100 Insuln 100 unit/mL (3 mL) Insulin Pen 65 unit SUBCUT BID RF: 0 potassium chloride 20 mEq Tablet Extended Release 20 meq PO DAILY RF: 0 Anti-Diarrheal (loperamide) See Rx Instructions .ROUTE .COMPLEX RF: 0 Systane Complete 0.6 % Drops See Rx Instructions .ROUTE .COMPLEX RF: 0 Stool Softener 1 - 2 cap PO PRN RF: 0 Xopenex HFA 45 mcg/actuation HFA aerosol inhaler 2 inh INHALATION Q6H PRN (Reason: unknown) RF: 0 Discharge Orders: Transfer Out of Facility (Order); Ordered 11/18/19 Ordered By: Adrian Ha Referrals: Alex Beckwith MD [Primary Care Provider] - Transfer Attestations Time Spent in Transfer Care*: greater than 30 min Status at Transfer: Cognitive status at transfer: cognitively intact, Behavioral status at transfer: cooperative, Functional status at transfer: bed bound Quality Metrics Clinical Quality Measures: During this hospital stay, did patient experience: None Coding Level of Care Code Acute Operations Officer Trust Department for [facility] Freed Diagnoses Acute abdominal pain R10.9 Acute kidney injury N17.9 Hyperbilirubinemia E80.6 Hyponatremia E87.1 End stage liver disease K72.90 COPD (chronic obstructive pulmonary disease) J43.9 COPD type: emphysema Emphysema type: unspecified Thrombocytopenia D69.6 Anxiety F41.9
--- NOTE | 2019-11-18 18:13 | PC.NURSE ---
HOme meds removed from pyxis, placed at bedside for impending transfer.
[2019-11-18 20:44] LABS: Albumin Level 2.7 g/dL (3.5-5.2); Blood Urea Nitrogen 42 mg/dL (6-20); Calcium 8.9 mg/dL (8.5-10.5); Carbon Dioxide 16 mmol/L (22-29); Chloride 90 mmol/L (98-107); Glomerular Filtration Rate 24.3 mL/min (90-130); Glucose 122 mg/dL (65-115); Phosphorus 5.1 mg/dL (2.5-4.5)
[2019-11-18 20:45] LABS: Blood Urea Nitrogen 42 mg/dL (6-20); Calcium 8.9 mg/dL (8.5-10.5); Carbon Dioxide 16 mmol/L (22-29); Chloride 90 mmol/L (98-107); Glucose 129 mg/dL (65-115); Osmolality Calculated 260 mOsm/kg (285-295)
[2019-11-18 20:58] LABS: Sodium 119 mmol/L (136-145)
[2019-11-18 21:01] LABS: Sodium 119 mmol/L (136-145)
[2019-11-18] MEDS: ipratropium-albuterol 3 mL Neb INHALATION (21:26)
--- NOTE | 2019-11-18 22:13 | PC.NURSE ---
report called to kavita brooks RN with [facility] ([phone]) at 2008. patient to be transferred to [place] MICU room 8403 by [facility] services. Kavita took report all questions answered. nurse notified Kavita Na level 119 at last check, dr daniel hospitalist notified and acknowledged with notified statement. Patient had large bowel movement was cleaned and is resting comfortably. EMS medical personel arrive report given at bedside at 2200 all questioned answered. Patient sent with personal items, medical equipment, and was transferred to EMS care without event.
--- NOTE | 2019-11-19 09:38 | PC.RESP ---
SMOKING CESSATION AND PULMONARY REHAB INFORMATION SENT TO PATIENT.
[2019-11-19 22:46] LABS: Glucose Point of Care 132 mg/dL (70-110)
== END 2019-11-18 22:30 | disposition short-term general hospital (02) | DRG 871 ==
LOC: ER 19:23 → ICU 21:03
PROVIDERS: Hospitalist; Internal Medicine Nephrology; Admitting Provider Student in an Organized Health Care Education/Training Program; Emergency Provider Family Medicine; PCP Internal Medicine; Visit Provider Internal Medicine
DX: A41.9 Sepsis, unspecified organism (principal); K65.2 Spontaneous bacterial peritonitis; E87.1 Hypo-osmolality and hyponatremia; N17.9 Acute kidney failure, unspecified; E72.20 Disorder of urea cycle metabolism, unspecified; E87.2 Acidosis; K76.6 Portal hypertension; R18.8 Other ascites; Z68.41 Body mass index [BMI] 40.0-44.9, adult; K52.9 Noninfective gastroenteritis and colitis, unspecified; E80.6 Other disorders of bilirubin metabolism; K72.90 Hepatic failure, unspecified without coma; J43.9 Emphysema, unspecified; D69.6 Thrombocytopenia, unspecified; F41.9 Anxiety disorder, unspecified; E87.5 Hyperkalemia; F17.210 Nicotine dependence, cigarettes, uncomplicated; E66.01 Morbid (severe) obesity due to excess calories
CPT/HCPCS: 12345; 36415; 36416; 36556; 36569; 36592; 36600; 51702; 71045; 74176; 76705; 80048; 80053; 80069; 80076; 81001; 82140; 82533; 82550; 82575; 82803; 82962; 83605; 83615; 83690; 83735; 83880; 84100; 84145; 84300; 84550; 85025; 85610; 85730; 86140; 87040; 87077; 87186; 87205; 87426; 94640; 96372; 96375; 99284; J0696; J0743; J1720; J1815; J2270; J2405; J3370; J3490; J7030; J7050; J7131; P9047; Q3014

== ENCOUNTER 2019-12-18 15:04 | Inpatient (IN) | payer MEDICAID, SELFPAY ==
[2019-12-18] VITALS (21 sets, daily range): BP systolic 93–147; BP diastolic 45–86; PULSE 92–107; RESP 12–30; TEMP 36.1; O2SAT 94–99
--- NOTE | 2019-12-18 15:26 | XR_ITS ---
WS: [id number] PORTABLE CHEST HISTORY: dyspnea/cough COMPARISON: 11/18/2019 Lung volumes are decreased. Diffuse haziness and mild pulmonary congestion. Since the prior study the RIGHT central line is been removed. No pleural effusion or pneumothorax. Cardiac size: Mildly enlarged cardiac silhouette. Mediastinum/Aorta: Normal mediastinum. No osseous abnormality seen. XR/XR chest 1V portable [id number] IMPRESSION: Interval development of mild pulmonary congestion and minimal cardiomegaly.
--- NOTE | 2019-12-18 15:26 | ECG_ITS ---
[facility] Test Date: 2019-12-18 Pat Name: Kavitha Reyes Department: Room: Gender: Female Furniture Associate: : 1960 Requested By: Chris Gibbs Order Number: [id number] Triston MD: MARCOS WEBSTER Measurements Intervals [place] Rate: 100 P: 62 SD: 194 QRS: -22 QRSD: 94 T: 35 QT: 365 QTc: 471 Interpretive Statements SINUS TACHYCARDIA WITH FREQUENT SUPRAVENTRICULAR PREMATURE COMPLEXES BORDERLINE LEFT AXIS DEVIATION [QRS AXIS < -20] LOW QRS VOLTAGE IN EXTREMITY LEADS [QRS DEFLECTION < 0.5 mV IN LIMB LEADS] ABNORMAL RHYTHM ECG No previous ECG available for comparison Electronically Signed On 12-18-2019 21:03:30 CDT by MARCOS WEBSTER [email or web address]
--- NOTE | 2019-12-18 15:31 | US_ITS ---
WS: [id number] ULTRASOUND-GUIDED THERAPEUTIC PARACENTESIS Procedure, risks, and complications have been explained to the patient. Consent is obtained. Utilizing aseptic technique and 1% buffered lidocaine, a small dermatome was made through which a 5 F rench Yueh catheter was inserted. Approximately 6000 ml of dark yellow peritoneal fluid was obtained without difficulty. No complications encountered. US/US paracentesis abd w [id number] IMPRESSION: Uncomplicated paracentesis yielding 6000 ml of peritoneal fluid.
[2019-12-18 16:07] LABS: Basophils % 0.4 %; Eosinophils # 0.1 10^3/uL (0.0-0.8); Hematocrit 29.3 % (37.0-47.0); Hemoglobin 9.4 g/dL (11.5-15.3); Lymphocytes # 0.1 10^3/uL (0.8-4.8); Lymphocytes % 1.7 %; Mean Corpuscular HGB Conc 32.1 g/dL (30.0-36.0); Mean Corpuscular Hemoglobin 31.1 pg (28.0-34.0); Monocytes # 0.7 10^3/uL (0.2-0.9); Monocytes % 8.8 %; Neutrophils # 6.62 10^3/uL (1.8-7.7); Neutrophils % 86.1 %; Nucleated Red Blood Cells % 0 %; Platelet Count 58 10^3/cmm (130-400); Red Blood Count 3.02 10^6/uL (4.1-5.3); Red Cell Distribution Width 22.2 % (12.1-15.1); White Blood Count 7.7 10^3/uL (4.0-10.0)
[2019-12-18 16:13] LABS: ABG PCO2 24.2 mmHg (35-45); ABG PH Result 7.42 (7.35-7.45); Alveolar-Arterial Oxygen Gradi 14.2 mmHg (5-10); Arterial Blood Gas Hematocrit 29.7 % (37-47); Base Excess ABG -7.7 mmol/L (-2.0-2.0); Blood Gas Operator Identificat AMH; Blood Gas Sample Site Brachial, left; Blood Gas Sample Type Arterial; HCO3 ABG 15.5 mmol/L (22-26); HGB O2 Sat 94.7 % (95-100); Ionized Calcium Level - ABG 1.2 mmol/L (1.1-1.4); Methemoglobin 0.6 % (0.4-1.5); Oxygen Device NC; Oxygen Saturation ABG 98.3; PO2 ABG 86.6 mmHg (80.0-100.0); Potassium Level - ABG 5.1 mmol/L (3.5-5.0); Total Hemoglobin 9.7 g/dL (12-16)
[2019-12-18 16:20] LABS: INR 1.95 (0.8-1.2)
[2019-12-18 16:23] LABS: D Dimer 3.13 ug/mIFEU (0-0.59)
[2019-12-18 16:24] LABS: Ammonia 98 umol/L (11-51)
[2019-12-18 16:25] LABS: Lactic Sepsis W/Reflex 5.3 mmol/L (0.5-2.2)
[2019-12-18 16:26] LABS: Troponin(5th) Baseline 39 ng/L (0-10)
[2019-12-18 16:34] LABS: Alanine Aminotransferase 46 U/L (0-33); Albumin Level 3.9 g/dL (3.5-5.2); Alkaline Phosphatase 265 IU/L (35-105); Anion Gap 23.4 (5-19); Aspartate Amino Transferase 46 U/L (0-32); Blood Urea Nitrogen 37 mg/dL (6-20); Calcium 9.5 mg/dL (8.5-10.5); Carbon Dioxide 15 mmol/L (22-29); Chloride 96 mmol/L (98-107); Globulin 1.5 g/dL (1.3-4.6); Glomerular Filtration Rate 24.3 mL/min (90-130); Glucose 184 mg/dL (65-115); Lipase 11 U/L (13-60); Magnesium 2.8 mg/dL (1.7-2.3); NT Pro B Type Natriuretic Pept 1519 pg/mL (0-125); Osmolality Calculated 281 mOsm/kg (285-295); Potassium 5.4 mmol/L (3.5-5.1); Sodium 129 mmol/L (136-145); Total Protein 5.4 g/dL (6.6-8.7)
--- NOTE | 2019-12-18 16:43 | ED_ITS ---
HPI - SOB/Dyspnea General: Chief Complaint: Shortness of Breath/Dyspnea Stated Complaint: SOB/heart rate of 113 Time Seen by Provider: 12/18/19 15:25 History of Present Illness: HPI Narrative: 59-year-old female presents emergency room with complaint of shortness of breath and just generally not feeling well. She is disoriented as well she was sent for evaluation from Dr. Beckwith's office after she had presented there for hospital follow-up. She is extremely jaundiced she has a known history of cirrhosis previous history of hepatitis C for which she has been treated. She has been recently hospitalized at [place]. She is on lactulose and she has been taking it 3 times a day but she is unsure of the dose. She is extremely short of breath and reports increasing swelling in her abdomen. MD elicited complaint: shortness of breath and cough Pertinent past history: COPD and other (Hepatitis C, end-stage liver disease) Context: recent illness Timing: constant Severity: severe Exacerbating factors: lying flat and exertion Relieving factors: oxygen, rest and upright position Known history of: COPD and other (History of hepatitis C, end-stage liver disease) Associated symptoms: Reports abdominal pain, cough, dizziness, lightheadedness and nausea; Deny chest congestion, chest pain, diaphoresis, extremity pain, fever(s), hemoptysis, myalgias, orthopnea, palpitations, paresthesias, polydipsia, polyuria, rash, sense of impending doom, syncope or vomiting Treatment prior to arrival: none Review of Systems Const: Denies: fever(s) or diaphoresis ENMT: Denies: throat pain, ear or mastoid pain, nasal discharge or nasal congestion Card: Reports: lightheadedness; Denies: chest pain, palpitations, syncope or orthopnea Resp: Denies: hemoptysis or chest congestion GI: Reports: abdominal pain and nausea; Denies: vomiting : Denies: flank pain, difficulty voiding, dysuria, urinary frequency or urin scar urgency Musc: Denies: extremity pain Skin/Breast: Denies: rash or pruritus Neuro: Reports: dizziness Endo: Denies: polyuria or polydipsia PFSH ED PFSH: Medical History Adrenal nodule bilateral, 21mm R, 19mm L, noted on CT imaging 10/2019 Anxiety COPD (chronic obstructive pulmonary disease) Diabetes History of such, hemoglobin A1c done on 10/22/2019 and 10/06/2019 were 5.3 and 5.5 respectively. On insulin at home. End stage liver disease with ascites (periodic paracentesis), hypersplenism, thrombocytopenia, portal hypertension with left splenorenal shunt and varices noted on CT imaging, hyperammonemia (60-70), hyponatremia (upper 120s), hypoproteinemia and hyperprothrombinemia Evaluated by [facility] for liver transplant November 2019, currently pending History of hepatitis C s/p treatment sovaldi/riba ~2012, undetectable levels 10/2019 SBP (spontaneous bacterial peritonitis) October 2019 Seizure anxiety induced seizures per patient description Surgical History History of colonoscopy History of laparoscopic cholecystectomy History of repair of left rotator cuff Hx of appendectomy Family History Other Diabetes Social History Smoking and tobacco status: current every day smoker Alcohol intake: former Household members: family History of recent travel: No Female Reproductive History: Date of last menstrual period: 11/03/09 Physical Exam Const: COMMON NORMALS: no acute distress GENERAL APPEARANCE: cooperative and comfortable HENMT: COMMON NORMALS: normocephalic and atraumatic HEAD & SCALP: normocephalic and atraumatic Eye: SCLERA: scleral abnormal Laterality of scleral abnormality: positive bilateral scleral icterus OTHER: Severely icteric sclera Resp: COMMON NORMALS: normal respiratory effort, No retractions, No use of accessory muscles and clear to auscultation bilaterally AUSCULTATION: clear to auscultation bilaterally Cardio: RATE: tachycardic GI: PALPATION: Yes Tenderness to palpation present (GI), Yes Hepatomegaly present and Yes Ascites present OTHER: Abdomen nearly pendulous with ascitic fluid Extremity: COMMON NORMALS: normal to inspection, capillary refill normal, no clubbing, cyanosis or edema, no calf tenderness and no pedal edema Skin: OTHER: Extreme jaundice from head to toe Course Vital Signs: Vital signs: Vital Signs Temperature 97.9 F 12/20/19 15:36 Pulse Rate 96 12/20/19 15:36 Respiratory Rate 17 12/20/19 15:36 Blood Pressure 124/56 12/20/19 15:36 Pulse Oximetry 93 12/20/19 15:36 MDM - SOB/Dyspnea Lab Data: Labs: Lab Results 12/18/19 12/18/19 12/18/19 Range/Units 00:37 15:55 15:55 WBC 7.7 (4.0-10.0) 10^3/ uL RBC 3.02 L (4.1-5.3) 10^6/u L Hgb 9.4 L (11.5-15.3) g/dL Hct 29.3 L (37.0-47.0) % MCV 97.0 (81-99) fL MCH 31.1 (28.0-34.0) pg MCHC 32.1 (30.0-36.0) g/dL RDW 22.2 H (12.1-15.1) % Plt Count 58 L (130-400) 10^3/c mm MPV 12.0 H (7.4-10.4) fL Neut % (Auto) 86.1 % Lymph % (Auto) 1.7 % [place] % (Auto) 8.8 % Eos % (Auto) 1.0 % Baso % (Auto) 0.4 % Neut # (Auto) 6.62 (1.8-7.7) 10^3/u L Lymph # (Auto) 0.1 L (0.8-4.8) 10^3/u L [place] # (Auto) 0.7 (0.2-0.9) 10^3/u L Eos # (Auto) 0.1 (0.0-0.8) 10^3/u L Baso # (Auto) 0.0 (0.0-0.1) 10^3/u L Nucleated RBC % (a uto) 0 % Nucleated RBCs # 0.0 /100WBC PT 22.90 H (12.1-14.9) SECO NDS INR 1.95 H (0.8-1.2) D-Dimer 3.13 H (0-0.59) ug/mIFE U Specimen Type Sample Site ABG pH (7.35-7.45) ABG pCO2 (35-45) mmHg ABG pO2 (80.0-100.0) mmH g ABG HCO3 (22-26) mmol/L ABG O2 Saturation ABG Base Excess (-2.0-2.0) mmol/ L Baljinder Test A-a O2 Gradient (5-10) mmHg Hematocrit (37-47) % Hgb O2 Saturation (95-100) % Carboxyhemoglobin (0.4-20.1) %THgb Methemoglobin (0.4-1.5) % Total Hemoglobin (12-16) g/dL Ionized Calcium (1.1-1.4) mmol/L O2 Delivery Device O2 Liters/Min % FiO2 % Proposal Review Analyst ID Sodium (136-145) mmol/L Potassium (3.5-5.1) mmol/L Chloride (98-107) mmol/L Carbon Dioxide (22-29) mmol/L Anion Gap (5-19) BUN (6-20) mg/dL Creatinine (0.5-0.9) mg/dL GFR Calculation (90-130) mL/min Glucose (65-115) mg/dL Calculated Osmolal ity (285-295) mOsm/k g Lactic Acid (0.5-2.2) mmol/L Lactic Acid (Sepsi s) (0.5-2.2) mmol/L Calcium (8.5-10.5) mg/dL Magnesium (1.7-2.3) mg/dL Total Bilirubin (0.15-1.2) mg/dL AST (0-32) U/L ALT (0-33) U/L Alkaline Phosphata se (35-105) IU/L Ammonia (11-51) umol/L Troponin T Baselin e (0-10) ng/L Troponin T 120 [place] (0-10) ng/L Delta Troponin T (0-10) ABS# NT-Pro-B Natriuret Pep (0-125) pg/mL Total Protein (6.6-8.7) g/dL Albumin (3.5-5.2) g/dL Globulin (1.3-4.6) g/dL Lipase (13-60) U/L Urine Color Red (Yellow) Urine Appearance Cloudy (CLEAR) Urine pH 5.0 (5-7) Ur Specific Gravit y 1.020 (1.005-1.030) Urine Protein 2+ H (Negative) Urine Glucose (UA) Norm (Normal) Urine Ketones Negative (Negative) Urine Blood 3+ H (Negative) Urine Nitrate Negative (Negative) Urine Bilirubin Neg (Negative) Urine Urobilinogen 4 H (Negative) mg/dL Ur Leukocyte Jailene ase 1+ H (Negative) Urine RBC Too numerous to c nt H (0-2) /hpf Urine WBC 5-10 H (0-5) /hpf Ur Squamous Epith Cells 10-15 H (0-5) /hpf Amorphous Sediment Not Reportable Urine Bacteria 1+ H (NONE) /hpf 12/18/19 12/18/19 12/18/19 Range/Units 15:55 15:55 15:55 WBC (4.0-10.0) 10^3/ uL RBC (4.1-5.3) 10^6/u L Hgb (11.5-15.3) g/dL Hct (37.0-47.0) % MCV (81-99) fL MCH (28.0-34.0) pg MCHC (30.0-36.0) g/dL RDW (12.1-15.1) % Plt Count (130-400) 10^3/c mm MPV (7.4-10.4) fL Neut % (Auto) % Lymph % (Auto) % [place] % (Auto) % Eos % (Auto) % Baso % (Auto) % Neut # (Auto) (1.8-7.7) 10^3/u L Lymph # (Auto) (0.8-4.8) 10^3/u L [place] # (Auto) (0.2-0.9) 10^3/u L Eos # (Auto) (0.0-0.8) 10^3/u L Baso # (Auto) (0.0-0.1) 10^3/u L Nucleated RBC % (a uto) % Nucleated RBCs # /100WBC PT (12.1-14.9) SECO NDS INR (0.8-1.2) D-Dimer (0-0.59) ug/mIFE U Specimen Type Sample Site ABG pH (7.35-7.45) ABG pCO2 (35-45) mmHg ABG pO2 (80.0-100.0) mmH g ABG HCO3 (22-26) mmol/L ABG O2 Saturation ABG Base Excess (-2.0-2.0) mmol/ L Baljinder Test A-a O2 Gradient (5-10) mmHg Hematocrit (37-47) % Hgb O2 Saturation (95-100) % Carboxyhemoglobin (0.4-20.1) %THgb Methemoglobin (0.4-1.5) % Total Hemoglobin (12-16) g/dL Ionized Calcium (1.1-1.4) mmol/L O2 Delivery Device O2 Liters/Min % FiO2 % Proposal Review Analyst ID Sodium 129 L (136-145) mmol/L Potassium 5.4 H (3.5-5.1) mmol/L Chloride 96 L (98-107) mmol/L Carbon Dioxide 15 L (22-29) mmol/L Anion Gap 23.4 H (5-19) BUN 37 H (6-20) mg/dL Creatinine 2.1 H (0.5-0.9) mg/dL GFR Calculation 24.3 L (90-130) mL/min Glucose 184 H (65-115) mg/dL Calculated Osmolal ity 281 L (285-295) mOsm/k g Lactic Acid (0.5-2.2) mmol/L Lactic Acid (Sepsi s) (0.5-2.2) mmol/L Calcium 9.5 (8.5-10.5) mg/dL Magnesium 2.8 H (1.7-2.3) mg/dL Total Bilirubin 29.6 H* (0.15-1.2) mg/dL AST 46 H (0-32) U/L ALT 46 H (0-33) U/L Alkaline Phosphata se 265 H (35-105) IU/L Ammonia 98 H (11-51) umol/L Troponin T Baselin e 39 H (0-10) ng/L Troponin T 120 [place] (0-10) ng/L Delta Troponin T (0-10) ABS# NT-Pro-B Natriuret Pep 1519 H (0-125) pg/mL Total Protein 5.4 L (6.6-8.7) g/dL Albumin 3.9 (3.5-5.2) g/dL Globulin 1.5 (1.3-4.6) g/dL Lipase 11 L (13-60) U/L Urine Color (Yellow) Urine Appearance (CLEAR) Urine pH (5-7) Ur Specific Gravit y (1.005-1.030) Urine Protein (Negative) Urine Glucose (UA) (Normal) Urine Ketones (Negative) Urine Blood (Negative) Urine Nitrate (Negative) Urine Bilirubin (Negative) Urine Urobilinogen (Negative) mg/dL Ur Leukocyte Jailene ase (Negative) Urine RBC (0-2) /hpf Urine WBC (0-5) /hpf Ur Squamous Epith Cells (0-5) /hpf Amorphous Sediment Urine Bacteria (NONE) /hpf 12/18/19 12/18/19 12/18/19 Range/Units 15:55 16:00 18:17 WBC (4.0-10.0) 10^3/ uL RBC (4.1-5.3) 10^6/u L Hgb (11.5-15.3) g/dL Hct (37.0-47.0) % MCV (81-99) fL MCH (28.0-34.0) pg MCHC (30.0-36.0) g/dL RDW (12.1-15.1) % Plt Count (130-400) 10^3/c mm MPV (7.4-10.4) fL Neut % (Auto) % Lymph % (Auto) % [place] % (Auto) % Eos % (Auto) % Baso % (Auto) % Neut # (Auto) (1.8-7.7) 10^3/u L Lymph # (Auto) (0.8-4.8) 10^3/u L [place] # (Auto) (0.2-0.9) 10^3/u L Eos # (Auto) (0.0-0.8) 10^3/u L Baso # (Auto) (0.0-0.1) 10^3/u L Nucleated RBC % (a uto) % Nucleated RBCs # /100WBC PT (12.1-14.9) SECO NDS INR (0.8-1.2) D-Dimer (0-0.59) ug/mIFE U Specimen Type Arterial Sample Site Brachial, left ABG pH 7.42 (7.35-7.45) ABG pCO2 24.2 L (35-45) mmHg ABG pO2 86.6 (80.0-100.0) mmH g ABG HCO3 15.5 L (22-26) mmol/L ABG O2 Saturation 98.3 ABG Base Excess -7.7 L (-2.0-2.0) mmol/ L Baljinder Test N/a A-a O2 Gradient 14.2 H (5-10) mmHg Hematocrit 29.7 L (37-47) % Hgb O2 Saturation 94.7 L (95-100) % Carboxyhemoglobin 3.0 (0.4-20.1) %THgb Methemoglobin 0.6 (0.4-1.5) % Total Hemoglobin 9.7 L (12-16) g/dL Ionized Calcium 1.2 (1.1-1.4) mmol/L O2 Delivery Device Nc O2 Liters/Min 3.0 % FiO2 32.0 % Proposal Review Analyst ID Amh Sodium 128.0 L (136-145) mmol/L Potassium 5.1 H (3.5-5.1) mmol/L Chloride (98-107) mmol/L Carbon Dioxide (22-29) mmol/L Anion Gap (5-19) BUN (6-20) mg/dL Creatinine (0.5-0.9) mg/dL GFR Calculation (90-130) mL/min Glucose 172.0 H (65-115) mg/dL Calculated Osmolal ity (285-295) mOsm/k g Lactic Acid 5.3 H* (0.5-2.2) mmol/L Lactic Acid (Sepsi s) (0.5-2.2) mmol/L Calcium (8.5-10.5) mg/dL Magnesium (1.7-2.3) mg/dL Total Bilirubin (0.15-1.2) mg/dL AST (0-32) U/L ALT (0-33) U/L Alkaline Phosphata se (35-105) IU/L Ammonia (11-51) umol/L Troponin T Baselin e (0-10) ng/L Troponin T 120 [place] 40.79 H (0-10) ng/L Delta Troponin T 1.79 (0-10) ABS# NT-Pro-B Natriuret Pep (0-125) pg/mL Total Protein (6.6-8.7) g/dL Albumin (3.5-5.2) g/dL Globulin (1.3-4.6) g/dL Lipase (13-60) U/L Urine Color (Yellow) Urine Appearance (CLEAR) Urine pH (5-7) Ur Specific Gravit y (1.005-1.030) Urine Protein (Negative) Urine Glucose (UA) (Normal) Urine Ketones (Negative) Urine Blood (Negative) Urine Nitrate (Negative) Urine Bilirubin (Negative) Urine Urobilinogen (Negative) mg/dL Ur Leukocyte Jailene ase (Negative) Urine RBC (0-2) /hpf Urine WBC (0-5) /hpf Ur Squamous Epith Cells (0-5) /hpf Amorphous Sediment Urine Bacteria (NONE) /hpf 12/18/19 Range/Units 18:17 WBC (4.0-10.0) 10^3/ uL RBC (4.1-5.3) 10^6/u L Hgb (11.5-15.3) g/dL Hct (37.0-47.0) % MCV (81-99) fL MCH (28.0-34.0) pg MCHC (30.0-36.0) g/dL RDW (12.1-15.1) % Plt Count (130-400) 10^3/c mm MPV (7.4-10.4) fL Neut % (Auto) % Lymph % (Auto) % [place] % (Auto) % Eos % (Auto) % Baso % (Auto) % Neut # (Auto) (1.8-7.7) 10^3/u L Lymph # (Auto) (0.8-4.8) 10^3/u L [place] # (Auto) (0.2-0.9) 10^3/u L Eos # (Auto) (0.0-0.8) 10^3/u L Baso # (Auto) (0.0-0.1) 10^3/u L Nucleated RBC % (a uto) % Nucleated RBCs # /100WBC PT (12.1-14.9) SECO NDS INR (0.8-1.2) D-Dimer (0-0.59) ug/mIFE U Specimen Type Sample Site ABG pH (7.35-7.45) ABG pCO2 (35-45) mmHg ABG pO2 (80.0-100.0) mmH g ABG HCO3 (22-26) mmol/L ABG O2 Saturation ABG Base Excess (-2.0-2.0) mmol/ L Baljinder Test A-a O2 Gradient (5-10) mmHg Hematocrit (37-47) % Hgb O2 Saturation (95-100) % Carboxyhemoglobin (0.4-20.1) %THgb Methemoglobin (0.4-1.5) % Total Hemoglobin (12-16) g/dL Ionized Calcium (1.1-1.4) mmol/L O2 Delivery Device O2 Liters/Min % FiO2 % Proposal Review Analyst ID Sodium (136-145) mmol/L Potassium (3.5-5.1) mmol/L Chloride (98-107) mmol/L Carbon Dioxide (22-29) mmol/L Anion Gap (5-19) BUN (6-20) mg/dL Creatinine (0.5-0.9) mg/dL GFR Calculation (90-130) mL/min Glucose (65-115) mg/dL Calculated Osmolal ity (285-295) mOsm/k g Lactic Acid (0.5-2.2) mmol/L Lactic Acid (Sepsi s) 3.9 H (0.5-2.2) mmol/L Calcium (8.5-10.5) mg/dL Magnesium (1.7-2.3) mg/dL Total Bilirubin (0.15-1.2) mg/dL AST (0-32) U/L ALT (0-33) U/L Alkaline Phosphata se (35-105) IU/L Ammonia (11-51) umol/L Troponin T Baselin e (0-10) ng/L Troponin T 120 [place] (0-10) ng/L Delta Troponin T (0-10) ABS# NT-Pro-B Natriuret Pep (0-125) pg/mL Total Protein (6.6-8.7) g/dL Albumin (3.5-5.2) g/dL Globulin (1.3-4.6) g/dL Lipase (13-60) U/L Urine Color (Yellow) Urine Appearance (CLEAR) Urine pH (5-7) Ur Specific Gravit y (1.005-1.030) Urine Protein (Negative) Urine Glucose (UA) (Normal) Urine Ketones (Negative) Urine Blood (Negative) Urine Nitrate (Negative) Urine Bilirubin (Negative) Urine Urobilinogen (Negative) mg/dL Ur Leukocyte Jailene ase (Negative) Urine RBC (0-2) /hpf Urine WBC (0-5) /hpf Ur Squamous Epith Cells (0-5) /hpf Amorphous Sediment Urine Bacteria (NONE) /hpf Discharge Plan Discharge Admit Provider: Adrian Ha Clinical Impression: End stage liver disease, Diabetes, COPD (chronic obstructive pulmonary disease), Thrombocytopenia, Hypersplenia, Delirious, Hepatic encephalopathy Condition: Stable Discharge Orders: Transfer Out of Facility (Order); Ordered 12/20/19 Ordered By: Adrian Ha Interventions: ED Discharge Assessment Last Done: 12/18/19 20:10 ED Charges Last Done: 12/18/19 20:10 Discharge Date/Time: 12/18/19 20:28 Coding Level of Care Code ED Restaurant Supervisor for Chg Fwd Exam Detailed
--- NOTE | 2019-12-18 17:26 | ECG_ITS ---
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
[2019-12-18 17:32] LABS: Total Bilirubin 29.6 mg/dL (0.15-1.2)
[2019-12-18 17:48] LABS: Reflex Lactate Order REFLEX LACTIC ORDERD
--- NOTE | 2019-12-18 18:34 | PC.NURSE ---
[facility] transfer bed [facility] to call for a quick patient triage and stated they would have a bed for patient, however can not guarantee it would be today
[2019-12-18] MEDS: cefepime 2,000 MG in sodium chloride 0.9% (plus) 50 ML 100 MG IV (18:38)
--- NOTE | 2019-12-18 18:56 | PM.HP ---
Providers/Chief Complaint Primary Care Provider: Alex Beckwith MD Chief Complaint: SOB/heart rate of 113 History of Present Illness Kavitha Reyes is a 59 year old female with end-stage liver disease who was recently discharged from [facility] approximately 2 weeks ago. Records regarding this are not available during the time of this dictation are not available. She was transferred up there, on November 17 with concern of hepatorenal syndrome, SBP, sepsis. After her discharge 2 weeks ago she reports she has not had any paracentesis. She has had increasing abdominal girth as well as pain. She has not been able to take care of her self. She was treated for Serratia peritonitis. She was discharged on Cipro prophylactically following her hospital stay. She was evaluated for liver transplant and she reports this is still under review. Denies personal history of Covid, or exposure to Covid. No fevers at home. The emergency department physician has contacted [facility] who reports they will accept her in transfer but bed availability may take quite some time. 6 L of peritoneal fluid have been removed in the emergency department, and she has gotten a dose of albumin following this. Review of Systems General: Reports: 10 or more systems reviewed and unremarkable except in HPI and below Const: Reports: fatigue and malaise; Denies: fever(s) Eyes: Denies: change in vision ENMT: Denies: throat pain Card: Denies: chest pain Resp: Reports: dyspnea GI: Reports: abdominal pain : Denies: flank pain Musc: Denies: neck pain Skin/Breast: Denies: rash Neuro: Denies: headache(s) Psych: Denies: anxiety Endo: Denies: polyuria Ryan/Lymph: Denies: easy bruising All/Imm: Denies: urticaria Medications/Allergies Home Medications Medication Instructions Recorded Confirmed Last Taken Type Levemir FlexTouch U-100 Insuln 65 unit SUBCUT BID 10/05/19 12/18/19 10/05/19 History furosemide [Lasix] 40 mg PO DAILY 10/05/19 12/18/19 11/13/19 History hydroxyzine HCl 25 - 50 mg PO BEDTIME 10/05/19 12/18/19 10/04/19 History insulin aspart U-100 [Novolog 20 unit SUBCUT BID 10/05/19 12/18/19 10/05/19 History Flexpen U-100 Insulin] magnesium oxide [MagOx] 400 mg PO DAILY 10/05/19 12/18/19 11/13/19 History ondansetron HCl [Zofran] 8 mg PO Q6H PRN 10/05/19 12/18/19 Unknown History potassium chloride 20 meq PO DAILY 10/05/19 12/18/19 10/05/19 History spironolactone 50 mg PO BID 10/05/19 12/18/19 10/05/19 History tizanidine 2 mg PO BEDTIME 10/05/19 12/18/19 10/04/19 History oxycodone 5 mg capsule 5 mg PO Q8H PRN 30 Days #60 cap 10/22/19 12/18/19 11/15/19 Rx aripiprazole 5 mg tablet 5 mg PO DAILY #30 tab 11/05/19 12/18/19 Unknown Rx pantoprazole 40 mg tablet,delayed 40 mg PO DAILY #90 tab 11/05/19 12/18/19 11/14/19 Rx release Anti-Diarrheal (loperamide) See Rx Instructions .ROUTE .COMPLEX 11/17/19 12/18/19 Unknown History Stool Softener 1 - 2 cap PO PRN 11/17/19 12/18/19 Unknown History Xopenex HFA 2 inh INHALATION Q6H PRN 11/17/19 12/18/19 Unknown History propylene glycol [Systane Complete] See Rx Instructions .ROUTE .COMPLEX 11/17/19 12/18/19 Unknown History Allergies Allergy/AdvReac Type Severity Reaction Status Date / Time celecoxib [From Celebrex] Allergy Unknown Verified 12/18/19 14:19 chlorpromazine Allergy Unknown Verified 12/18/19 14:19 [From Thorazine] citalopram [From Celexa] Allergy Unknown Verified 12/18/19 14:19 codeine Allergy Unknown Verified 12/18/19 14:19 duloxetine [From Cymbalta] Allergy ADR-Nightma Verified 12/18/19 14:19 re ketorolac [From Toradol] Allergy Unknown Verified 12/18/19 14:19 NSAIDS (Non-Steroidal Allergy Unknown Verified 12/18/19 14:19 Anti-Inflamma tramadol Allergy ADR-Halluci Verified 12/18/19 14:19 nating PFSH Acute PFSH: Medical History (Updated 12/18/19 @ 19:27 by Adrian Ha MD) Adrenal nodule bilateral, 21mm R, 19mm L, noted on CT imaging 10/2019 Anxiety COPD (chronic obstructive pulmonary disease) Diabetes History of such, not currently on any treatment, hemoglobin A1c done on and 10/06/2019 were 5.3 and 5.5 respectively. End stage liver disease with ascites (periodic paracentesis), hypersplenism, thrombocytopenia, portal hypertension with left splenorenal shunt and varices noted on CT imaging, hyperammonemia (60-70), hyponatremia (upper 120s), hypoproteinemia and hyperprothrombinemia Evaluated by [facility] for liver transplant November 2019, currently pending History of hepatitis C s/p treatment sovaldi/riba ~2012, undetectable levels 10/2019 SBP (spontaneous bacterial peritonitis) SerratiaOctober 2019 Seizure anxiety induced seizures per patient description Surgical History History of colonoscopy History of laparoscopic cholecystectomy History of repair of left rotator cuff Hx of appendectomy Family History Other Diabetes Social History Smoking and tobacco status: current every day smoker Alcohol intake: former Household members: family History of recent travel: No Female Reproductive History: Date of last menstrual period: 11/03/09 Vitals/I&O/Wt Last Vital Signs Temp 96.9 F L 12/18/19 15:09 Pulse 105 H 12/18/19 18:00 Resp 22 H 12/18/19 18:00 BP 142/74 12/18/19 17:30 Pulse Ox 98 12/18/19 18:00 Physical Exam Narrative: EXAM NARRATIVE: General exam is a white female, floridly jaundiced, reporting she has significant abdominal pain. Anasarca noted HEENT: Pupils equally round. Scleral icterus is noted. Oropharynx is clear. Neck is supple no lymphadenopathy or thyromegaly Cardiovascular tachycardic, no murmur Lungs a few bibasilar wheezes Abdomen is tender globally. Bowel sounds are noted. Ascites present Extremities with 2+ edema Neurologic: No obvious focal deficits. Mildly confused currently. Skin jaundice noted Data : 12/18/19 15:55 12/18/19 15:55 Micro: Microbiology 12/18/19 18:17 Blood Culture - Preliminary Blood SPECIMEN COLLECTED 12/18/19 15:55 Blood Culture - Preliminary Blood SPECIMEN COLLECTED Other data: Chest x-ray demonstrates mild congestion, cardiomegaly INR is 1.95 ABG demonstrates pH of 7.42, PCO2 of 24, PO2 of 86 Lactic acid 5.3 Magnesium 2.8 Bilirubin 29.6 AST and ALT 46, alk phos 265, ammonia 98, troponin 39, BNP 1519, albumin 3.9 Cell count of ascites fluid pending EKG demonstrates sinus rhythm left axis deviation no ST elevation. A&P Assessment and plan (1) End stage liver disease: Paracentesis performed in the emergency department, 6 L of icteric bilious appearing fluid Her MELD score is significantly high. She has been evaluated at [facility] for transplant. According to the emergency department physician she has been accepted in transfer but it may be quite a while before bed is available. Therefore she has been admitted to the ICU here. Continue patient's midodrine Note that she is currently getting 25 g of albumin following her paracentesis. Status: Chronic (2) Acute kidney injury: Albumin Fluids, low level monitoring closely for fluid overload Continue patient's midodrine Status: Acute (3) Abdominal pain: Likely has recurrent SBP Cefepime, linezolid Await cell count, cultures Status: Acute (4) Sepsis: Not candidate for aggressive fluid hydration Await blood and peritoneal fluid culture Status: Acute (5) Hyponatremia: Likely secondary to liver disease Thyroid and cortisol levels checked previous hospital stay Status: Acute (6) Acute hyperkalemia: Hydration Repeat in a.m. Status: Acute (7) COPD (chronic obstructive pulmonary disease): No evidence of exacerbation Nebs as needed Status: Chronic Qualifiers: COPD type: emphysema Emphysema type: unspecified Qualified Code(s): J43.9 - Emphysema, unspecified (8) Hepatic encephalopathy: Hold lactulose currently secondary to sepsis Mildly confused currently. Status: Acute Additional A&P Information Diabetes. Sliding scale insulin History of hepatitis C Full code SCDs for DVT prophylaxis. With thrombocytopenia, anemia, elevated INR anticoagulation contraindicated Check urinalysis Overall prognosis poor Attestations Medical Necessity Statement*: Will need greater than 2 midnight stay for treatment of end-stage liver disease, likely peritonitis, sepsis with IV antibiotics. Coding Level of Care Code Acute Rehabilitation Caseworker for [facility] Fwd Diagnoses End stage liver disease K72.90 Acute kidney injury N17.9 Abdominal pain R10.9 Sepsis A41.9 Hyponatremia E87.1 Acute hyperkalemia E87.5 COPD (chronic obstructive pulmonary disease) J43.9 COPD type: emphysema Emphysema type: unspecified Hepatic encephalopathy K72.90
[2019-12-18 19:08] LABS: Body Fluid Polynuclear #Cells 0.014; Body Fluid WBC 55 /uL; Monocytes # Body Fluid 0.041; RBC, Body Fluid 0 10^3/uL
[2019-12-18 19:15] LABS: Lactic Acid level (Lactate) 3.9 mmol/L (0.5-2.2); Troponin 5 2HR 40.79 ng/L (0-10); Troponin 5 2HR Delta 1.79 ABS# (0-10)
[2019-12-18] MEDS: ondansetron 2 mg/ML SDV 2 mL 4 MG IVP (20:36)
[2019-12-18] MEDS: midodrine 5 mg TABLET 15 MG PO (20:36)
[2019-12-18] MEDS: oxyCODONE 5 mg IR Tab/Cap PO ×2 (20:37→22:45)
[2019-12-18] MEDS: sodium chloride 0.9% 1,000 ML 50 ML IV (21:03)
[2019-12-18] MEDS: linezolid premix 600 MG/300 ML PREMIX 300 MG IV (21:10)
[2019-12-18 21:39] LABS: Apprearance, Body Fluid CLEAR; Color, Body Fluid YELLOW
--- NOTE | 2019-12-18 22:45 | PC.NURSE ---
Pt given Oxy IR at 2029. At 2214, Dr. Esquivel consulted because pt still complained of pain 11/28. Sierra ordered Oxy IR to be Q4 instead of Q6, and could start now.
[2019-12-18 22:48] LABS: Troponin 5 6HR 44.39 ng/L (0-10); Troponin 5 6HR Delta 5.39 ng/L (0-12)
[2019-12-18] MEDS: HYDROmorphone 1 mg/mL INJ 1 mL 0.5 MG IVP (23:54)
[2019-12-19] VITALS (19 sets, daily range): BP systolic 110–151; BP diastolic 35–87; PULSE 87–103; RESP 10–24; TEMP 36.4–36.9; O2SAT 96–100
[2019-12-19] MEDS: cefepime 2,000 MG in sodium chloride 0.9% (plus) 50 ML 100 MG IV ×3 (01:14→22:18)
[2019-12-19 02:03] LABS: Glucose Urine UA Norm (Normal); Ketones Urine Negative (Negative); Protein Urine 2+ (Negative); Urine Appearance Cloudy (CLEAR); Urine Color Red (Yellow)
[2019-12-19 02:04] LABS: Add Urine Culture? No; Bacteria Urine 1+ /hpf; Bilirubin Urine Neg (Negative); Blood Urine 3+ (Negative); Leukocyte Esterase Urine 1+ (Negative); Nitrate Urine Negative (Negative); RBC Urine TOO NUMEROUS TO CNT /hpf (0-2); Urobilinogen Urine 4 mg/dL (Negative)
[2019-12-19] MEDS: oxyCODONE 5 mg IR Tab/Cap PO ×5 (02:21→21:12)
[2019-12-19 06:07] LABS: Alanine Aminotransferase 40 U/L (0-33); Albumin Level 3.9 g/dL (3.5-5.2); Alkaline Phosphatase 223 IU/L (35-105); Anion Gap 21.1 (5-19); Aspartate Amino Transferase 40 U/L (0-32); Blood Urea Nitrogen 33 mg/dL (6-20); Calcium 8.8 mg/dL (8.5-10.5); Carbon Dioxide 16 mmol/L (22-29); Chloride 95 mmol/L (98-107); Globulin 0.9 g/dL (1.3-4.6); Glomerular Filtration Rate 24.3 mL/min (90-130); Glucose 212 mg/dL (65-115); Osmolality Calculated 278 mOsm/kg (285-295); Potassium 5.1 mmol/L (3.5-5.1); Sodium 127 mmol/L (136-145); Total Protein 4.8 g/dL (6.6-8.7)
[2019-12-19 06:17] LABS: Basophils % 0.6 %; Eosinophils # 0.2 10^3/uL (0.0-0.8); Eosinophils % 2.6 %; Hematocrit 26.5 % (37.0-47.0); Hemoglobin 8.4 g/dL (11.5-15.3); INR 2.06 (0.8-1.2); Lymphocytes # 0.3 10^3/uL (0.8-4.8); Lymphocytes % 4.3 %; Mean Corpuscular HGB Conc 31.7 g/dL (30.0-36.0); Mean Corpuscular Hemoglobin 31.2 pg (28.0-34.0); Mean Corpuscular Volume 98.5 fL (81-99); Mean Platelet Volume 10.5 fL (7.4-10.4); Monocytes # 0.7 10^3/uL (0.2-0.9); Monocytes % 10.4 %; Neutrophils # 5.47 10^3/uL (1.8-7.7); Neutrophils % 80.2 %; Nucleated Red Blood Cells % 0 %; Platelet Count 44 10^3/cmm (130-400); Red Blood Count 2.69 10^6/uL (4.1-5.3); Red Cell Distribution Width 21.9 % (12.1-15.1); White Blood Count 6.8 10^3/uL (4.0-10.0)
[2019-12-19 06:24] LABS: Total Bilirubin 25.6 mg/dL (0.15-1.2)
[2019-12-19] MEDS: linezolid premix 600 MG/300 ML PREMIX 300 MG IV ×2 (07:27→21:14)
--- NOTE | 2019-12-19 07:41 | PC.NURSE ---
pt asked if she was a current smoker, pt stated 8 to 12 packs a day. nurse repeated 8 to 12 packs a day and pt stated, no 8 to 12 cigarettes a day, it use to be a pack a day.
[2019-12-19 07:46] LABS: Slide Review Slide Review Perform
[2019-12-19] MEDS: pantoprazole DR 40 mg Tablet PO (09:59)
[2019-12-19] MEDS: midodrine 5 mg TABLET 15 MG PO ×3 (09:59→21:12)
[2019-12-19 10:20] LABS: Basophils # 0.1 10^3/uL (0.0-0.1); Basophils % 0.8 %; Eosinophils # 0.3 10^3/uL (0.0-0.8); Eosinophils % 3.4 %; Hematocrit 27.9 % (37.0-47.0); Hemoglobin 8.6 g/dL (11.5-15.3); Lymphocytes # 0.3 10^3/uL (0.8-4.8); Lymphocytes % 3.4 %; Mean Corpuscular HGB Conc 30.8 g/dL (30.0-36.0); Mean Corpuscular Volume 100.7 fL (81-99); Mean Platelet Volume 11.7 fL (7.4-10.4); Monocytes # 0.8 10^3/uL (0.2-0.9); Monocytes % 10.7 %; Neutrophils # 5.79 10^3/uL (1.8-7.7); Neutrophils % 79.6 %; Nucleated Red Blood Cells % 0 %; Platelet Count 50 10^3/cmm (130-400); Red Blood Count 2.77 10^6/uL (4.1-5.3); Red Cell Distribution Width 21.8 % (12.1-15.1); White Blood Count 7.3 10^3/uL (4.0-10.0)
--- NOTE | 2019-12-19 14:39 | PM.PN ---
Subjective Subjective: Interval history: Patient does not necessarily feel any worse but she does not feel any better. Still with abdominal pain. Tolerating liquid diet without any nausea or vomiting reported. No bowel movement reported. She does not recall having paracentesis done yesterday. Approximately 6 L was taken off. She knows that she is in the hospital. She knows what year it is. She cannot give me much in the way of details regarding what happened when she was up at [facility]. The earliest there is a possibility a bed will be available up at [facility] is on December 20. Vitals/I&O/Wt Last Vital Signs Temp 97.9 F 12/19/19 12:00 Pulse 87 12/19/19 12:00 Resp 10 L 12/19/19 12:00 BP 121/63 12/19/19 12:00 Pulse Ox 99 12/19/19 12:00 12/18/19 12/19/19 12/19/19 22:59 06:59 14:59 Intake Total 1170 / 1170 50 / 1220 720 / 720 Balance 1170 / 1170 50 / 1220 720 / 720 Weight last 48 hrs Weight 113.716 kg Physical Exam Const: OTHER: Alert, oriented to person and place, not able to accurately describe details presently, cooperative, jaundiced HENMT: OTHER: Moist membranes Eye: OTHER: Icteric sclera Neck/C-Spine: OTHER: Large but supple Resp: OTHER: Clear, decreased at bases, mild tachypnea Cardio: OTHER: Regular rate and rhythm, distal heart sounds GI: OTHER: Abdomen soft at upper quadrants and epigastrum. Skin thickening with engorged vascularity noted lower abdomen. Fullness noted to right lower quadrant, no increased tenderness noted. No rebound tenderness, no guarding. Lays on left side Extremity: NARRATIVE EXTREMITY EXAM: Unchanged edema Neuro: OTHER: Speech clear when she takes time to enunciate, hand featheredger and reducer machine equal, mild asterixis, moves both feet Psych: OTHER: Confused about something things but seems better than yesterday evaluations, anxious Skin: OTHER: Jaundiced, dry, scattered ecchymosis, some at iatragenic needle sites Data : 12/19/19 10:00 12/19/19 04:46 Other Labs: Laboratory Tests 12/19/19 12/19/19 12/19/19 04:46 04:46 10:00 Neut % (Auto) 79.6 INR 2.06 H Total Bilirubin 25.6 H* AST 40 H ALT 40 H Alkaline Phosphatase 223 H Total Protein 4.8 L Albumin 3.9 Micro: Microbiology 12/18/19 Unknown Gram Stain - Final - Ascites rare WBC, no organism, CX pending 12/18/19 18:17 Blood Culture - Preliminary Blood SPECIMEN COLLECTED 12/18/19 15:55 Blood Culture - Preliminary Blood SPECIMEN COLLECTED A&P Assessment and plan (1) Hepatic encephalopathy: Acute on what looks to be chronic baseline elevation in hyperbilirubinemia with acute worsening felt secondary to infection Status: Acute (2) Abdominal pain: Recently with Serratia SBP, concern for recurrence, status post paracentesis with 6 L removal 12/17, cultures thus far are pending Status: Acute Qualifiers: Abdominal location: generalized Qualified Code(s): R10.84 - Generalized abdominal pain (3) Sepsis: Status: Acute Qualifiers: Sepsis type: sepsis due to unspecified organism Sepsis acute organ dysfunction status: with acute organ dysfunction Severe sepsis acute organ dysfunction type: encephalopathy Severe sepsis shock status: without septic shock Qualified Code(s): A41.9 - Sepsis, unspecified organism; R65.20 - Severe sepsis without septic shock; G93.40 - Encephalopathy, unspecified (4) End stage liver disease: with ascites (periodic paracentesis), hypersplenism, thrombocytopenia, portal hypertension with left splenorenal shunt and varices noted on CT imaging, hyperammonemia (60-70), hyponatremia (upper 120s), hypoproteinemia and hyperprothrombinemia Evaluated by [facility] for liver transplant November 2019, currently pending Status: Chronic (5) Diabetes: Status: Chronic Qualifiers: Diabetes mellitus type: due to underlying condition Diabetes mellitus buttermaker helper insulin use: with buttermaker helper use Diabetes mellitus complication status: with neurologic complications Diabetes mellitus complication detail: with unspecified neuropathy Qualified Code(s): E08.40 - Diabetes mellitus due to underlying condition with diabetic neuropathy, unspecified; Z79.4 - terminal manager (current) use of insulin (6) COPD (chronic obstructive pulmonary disease): Status: Chronic Qualifiers: COPD type: emphysema Emphysema type: unspecified Qualified Code(s): J43.9 - Emphysema, unspecified (7) Anxiety: With a history of anxiety induced seizures Status: Chronic (8) Morbid obesity with BMI of 40.0-44.9, adult: Status: Chronic Additional A&P Information Elevated troponin with negative delta Lactic acidosis Macrocytic anemia drop over the prior month which is not surprising given acute on chronic medical issues. No reported bleeding, some component of volume overload could also be contributing to numerical values Add lactulose, consider rifaximin Neurochecks Continue cefepime and linezolid Follow-up pending peritoneal fluid cultures as well as blood cultures Continue midodrine Continue PPI Strict I's and O's and daily weights Dey catheter to help monitor adequate output in the setting of end-stage liver disease, kidney disease, currently off of diuretic therapy Oxycodone IR for pain control he did Majority of other home medications are currently held Repeat ammonia level, INR, LFTs, electrolytes and CBC in the morning Repeat ABG Close monitoring for acute clinical decline On wait list for bed at [facility] for hepatology/transplant service care SCDs for DVT prophylaxis in the setting of thrombocytopenia Discussed with patient intended transfer to [facility] to which she is agreeable Patient was given an opportunity to ask questions and really only wanted something done to help her with some ice chips. She did express some understanding of the severity of her current condition but it remains hopeful that she will be able to get a transplant and have things get better. Full code Attestations Medical Necessity Statement*: Requires ongoing inpatient stay for continued management of end-stage liver disease and acute hepatic encephalopathy plus sepsis felt secondary to recurrent SBP. Coding Level of Care Code Acute Accounting Advisory Services Manager for [facility] Fwd Diagnoses Hepatic encephalopathy K72.90 Abdominal pain R10.84 Abdominal location: generalized Sepsis A41.9; R65.20; G93.40 Sepsis type: sepsis due to unspecified organism Sepsis acute organ dysfunction status: with acute organ dysfunction Severe sepsis acute organ dysfunction type: encephalopathy Severe sepsis shock status: without septic shock End stage liver disease K72.90 Diabetes E08.40; Z79.4 Diabetes mellitus type: due to underlying condition Diabetes mellitus [facility] insulin use: with [facility] use Diabetes mellitus complication status: with neurologic complications Diabetes mellitus complication detail: with unspecified neuropathy COPD (chronic obstructive pulmonary disease) J43.9 COPD type: emphysema Emphysema type: unspecified Anxiety F41.9 Morbid obesity with BMI of 40.0-44.9, adult E66.01; Z68.41
--- NOTE | 2019-12-19 16:49 | PC.RESP ---
Smoking Cessation and Pulmonary Rehab information sent to patient.
[2019-12-19] MEDS: sodium chloride 0.9% 1,000 ML 50 ML IV (17:16)
--- NOTE | 2019-12-19 17:34 | PC.NURSE ---
[facility] called and wanted to let us know that they still do not have a bed at this time but are actively working on it.
--- NOTE | 2019-12-19 17:35 | PC.NURSE ---
pt urine is orange/red tinged. will continue to monitor. call light within reach.
--- NOTE | 2019-12-19 17:36 | PC.NURSE ---
pt had an uneventful shift. vitals stable. no changes in condition. calll light within reach. will continue to monitor.
[2019-12-19] MEDS: lactulose oral liq 20 gm/30 mL UDC PO (18:17)
[2019-12-19 18:33] LABS: Glucose Point of Care 214 mg/dL (70-110)
--- NOTE | 2019-12-19 19:44 | PC.NURSE ---
Received report from LINDSEY Delcid. Patient resting in bed with eyes closed. Spontaneously opens eyes when entering the room. Placed Burnham Catheter as ordered using aseptic technique. Stat Lock for burnham in place. Patient repostioned for comfort. Patient working on dinner tray at this time.
[2019-12-19 19:54] LABS: ABG PCO2 33.1 mmHg (35-45); ABG PH Result 7.38 (7.35-7.45); Arterial Blood Gas Hematocrit 27.7 % (37-47); Base Excess ABG -4.8 mmol/L (-2.0-2.0); Blood Gas Sample Type Arterial; HCO3 ABG 19.7 mmol/L (22-26); PO2 ABG 77.9 mmHg (80.0-100.0)
[2019-12-19 19:55] LABS: Blood Gas Operator Identificat HARKR; Blood Gas Sample Site Brachial, right; Oxygen Device NC
[2019-12-19 21:07] LABS: Glucose Point of Care 240 mg/dL (70-110)
--- NOTE | 2019-12-19 21:26 | PC.NURSE ---
Administered medications as ordered. Patient c/o pain 8/10 to generalized body. Medications provided as ordered. Positioned for comfort to right side. Patient able to reposition self. Dey draining bright orange urine. Provided diet lemon-newhalen elmer as requested. No other distress observed presently.
--- NOTE | 2019-12-19 22:21 | PC.NURSE ---
Patient resting with eyes closed. Even, non-labored respirations observed. Medication administered as ordered. No distress observed.
--- NOTE | 2019-12-19 23:51 | PC.NURSE ---
Patient resting with eyes closed. Eyes open spontaneously. Patient denies needs at this time. No distress observed.
[2019-12-20] VITALS (8 sets, daily range): BP systolic 112–139; BP diastolic 53–60; PULSE 87–100; RESP 14–20; TEMP 36.6–37; O2SAT 93–99
--- NOTE | 2019-12-20 04:25 | PC.NURSE ---
Addendum entered by Ivania Allred RN 12/20/19 04:41: Received verbal order from Dr Esquivel to not administered am dose of lactulose. RBVO Original Note: Patient has increased confusion and forgetfulness. Alert to self only. Redirectable at this time. Patient is refusing her lactulose this morning stating, I am tired of pooping. Abdomen has increased tightness with distention. Informed Dr Esquivel of patient condition and refusing lactulose this morning. said OK.
--- NOTE | 2019-12-20 05:27 | PC.NURSE ---
Patient more awake presently. Oriented x2-3. Patient requested something to drink which was provided. No distress observed.
[2019-12-20 06:04] LABS: Ammonia 96 umol/L (11-51)
[2019-12-20 06:09] LABS: Alanine Aminotransferase 47 U/L (0-33); Albumin Level 3.7 g/dL (3.5-5.2); Alkaline Phosphatase 234 IU/L (35-105); Aspartate Amino Transferase 61 U/L (0-32); Blood Urea Nitrogen 26 mg/dL (6-20); Calcium 8.9 mg/dL (8.5-10.5); Carbon Dioxide 17 mmol/L (22-29); Chloride 95 mmol/L (98-107); Globulin 1.1 g/dL (1.3-4.6); Glomerular Filtration Rate 51.2 mL/min (90-130); Glucose 153 mg/dL (65-115); Osmolality Calculated 266 mOsm/kg (285-295); Sodium 124 mmol/L (136-145); Total Protein 4.8 g/dL (6.6-8.7)
[2019-12-20 06:22] LABS: Anion Gap 17.3 (5-19); Potassium 5.3 mmol/L (3.5-5.1); Total Bilirubin 28.9 mg/dL (0.15-1.2)
[2019-12-20 06:27] LABS: Glucose Point of Care 149 mg/dL (70-110)
[2019-12-20 06:36] LABS: Basophils # 0.1 10^3/uL (0.0-0.1); Basophils % 0.8 %; Eosinophils # 0.3 10^3/uL (0.0-0.8); Hematocrit 27.9 % (37.0-47.0); Hemoglobin 8.7 g/dL (11.5-15.3); Lymphocytes # 0.2 10^3/uL (0.8-4.8); Lymphocytes % 3.4 %; Mean Corpuscular HGB Conc 31.2 g/dL (30.0-36.0); Mean Corpuscular Hemoglobin 30.5 pg (28.0-34.0); Mean Corpuscular Volume 97.9 fL (81-99); Mean Platelet Volume 10.5 fL (7.4-10.4); Monocytes # 0.7 10^3/uL (0.2-0.9); Monocytes % 9.6 %; Neutrophils # 5.66 10^3/uL (1.8-7.7); Neutrophils % 80.2 %; Nucleated Red Blood Cells % 0 %; Platelet Count 47 10^3/cmm (130-400); Red Blood Count 2.85 10^6/uL (4.1-5.3); Red Cell Distribution Width 20.6 % (12.1-15.1); White Blood Count 7.1 10^3/uL (4.0-10.0)
[2019-12-20 07:26] LABS: Slide Review Slide Review Perform
[2019-12-20 07:33] LABS: INR 2.01 (0.8-1.2)
[2019-12-20] MEDS: oxyCODONE 5 mg IR Tab/Cap PO ×2 (08:40→15:27)
[2019-12-20] MEDS: pantoprazole DR 40 mg Tablet PO (08:40)
[2019-12-20] MEDS: midodrine 5 mg TABLET 15 MG PO ×2 (08:40→15:14)
[2019-12-20] MEDS: FUROsemide 10 mg/mL SDV 4mL 40 MG IVP (08:41)
[2019-12-20] MEDS: linezolid premix 600 MG/300 ML PREMIX 300 MG IV (08:42)
--- NOTE | 2019-12-20 09:55 | PC.NURSE ---
Home med reconciliation Pt Eliquis is listed o take daily per doctor. Verified with pt and at first she said it was daily then she said she is unsure if she mixed it with her other medication. She does not remember the dose. Called [facility] pharmacy where she fills it per pt request and per pharmacist she has not filled it since July and it is instructed to take 5 mg twice a day. Instructed pt to take her eliquis twice a day 5 mg according to the doctor for prevention of blood clot formation. Pt verbalizes understanding.
[2019-12-20] MEDS: cefepime 2,000 MG in sodium chloride 0.9% (plus) 50 ML 100 MG IV (10:06)
--- NOTE | 2019-12-20 10:41 | P.PN_ITS ---
Subjective Subjective: Interval history: Kavitha reports she would like to eat more. Still with some abdominal discomfort. Medications: Reviewed: Yes Vitals/I&O/Wt Last Vital Signs Temp 97.9 F 12/20/19 07:12 Pulse 93 12/20/19 08:01 Resp 14 12/20/19 08:40 BP 139/60 12/20/19 07:12 Pulse Ox 95 12/20/19 08:40 12/19/19 12/20/19 12/20/19 22:59 06:59 14:59 Intake Total 2260 / 3330 50 / 3380 360 / 360 Output Total 550 / 550 Balance 2260 / 3330 -500 / 2830 360 / 360 Weight last 48 hrs Weight 116.709 kg Weight 113.716 kg Physical Exam Narrative: EXAM NARRATIVE: General exam no distress Cardiovascular regular rate and rhythm Lungs a few bibasilar wheezes Abdomen is tender globally. Bowel sounds are noted. Ascites present Extremities with 2+ edema Neurologic: No obvious focal deficits. Urinary Catheter Management^: Dey: Cath Placed During This Visit: yes Reason for Continuing Indwelling Catheter: Accurate Measurement of Urinary Output in Critically Ill Patients Urinary Catheter Date of Insertion: 12/19/19 Urinary Catheter Time of Insertion: 19:37 Data : 12/20/19 05:09 12/20/19 05:09 Micro: Microbiology 12/18/19 18:17 Blood Culture - Preliminary Blood NEGATIVE TO DATE 12/18/19 15:55 Blood Culture - Preliminary Blood NEGATIVE TO DATE 12/18/19 Unknown Gram Stain - Final Ankle - Ascites A&P Assessment and plan (1) Hepatic encephalopathy: Appears to be at baseline Continue lactulose Add rifaximin Status: Acute (2) Abdominal pain: Recently with Serratia SBP, concern for recurrence, status post paracentesis with 6 L removal 12/17 Await cultures. Still pending Currently on cefepime, linezolid Status: Acute Qualifiers: Abdominal location: generalized Qualified Code(s): R10.84 - Generalized abdominal pain (3) Sepsis: Resolved Status: Acute Qualifiers: Sepsis type: sepsis due to unspecified organism Sepsis acute organ dysfunction status: with acute organ dysfunction Severe sepsis acute organ dysfunction type: encephalopathy Severe sepsis shock status: without septic shock Qualified Code(s): A41.9 - Sepsis, unspecified organism; R65.20 - Severe sepsis without septic shock; G93.40 - Encephalopathy, unspecified (4) End stage liver disease: with ascites (periodic paracentesis), hypersplenism, thrombocytopenia, portal hypertension with left splenorenal shunt and varices noted on CT imaging, hyperammonemia (60-70), hyponatremia (upper 120s), hypoproteinemia and hyperprothrombinemia Evaluated by [facility] for liver transplant November 2019, currently pending Status: Chronic (5) Diabetes: Sliding scale insulin Status: Chronic Qualifiers: Diabetes mellitus type: due to underlying condition Diabetes mellitus penitentiary insulin use: with penitentiary use Diabetes mellitus complication s tatus: with neurologic complications Diabetes mellitus complication detail: with unspecified neuropathy Qualified Code(s): E08.40 - Diabetes mellitus due to underlying condition with diabetic neuropathy, unspecified; Z79.4 - termite control technician (current) use of insulin (6) COPD (chronic obstructive pulmonary disease): No evidence of exacerbation Status: Chronic Qualifiers: COPD type: emphysema Emphysema type: unspecified Qualified Code(s): J43.9 - Emphysema, unspecified (7) Anxiety: With a history of anxiety induced seizures Status: Chronic (8) Morbid obesity with BMI of 40.0-44.9, adult: Status: Chronic Additional A&P Information History of hypotension. Continue midodrine Acute kidney injury, resolved Hyponatremia. Reinitiate Lasix as renal failure has resolved. Fluid restrict. Chronic pain. Continue oxycodone Secondary to end-stage liver disease, awaiting transfer to [facility]. They are evaluating her for transplant. She appears to be improving from sepsis, although significant mortality risk secondary to end-stage liver disease with b ilirubin of 29, hyponatremia, history of acute kidney injury, recurrent sepsis. Bilirubin currently 29 with an ammonia level of 96. Full code Attestations Medical Necessity Statement*: Needs continued hospitalization secondary to sepsis, requiring IV antibiotics Coding Level of Care Code Acute Border Patrol Agent for [facility] Diagnoses Hepatic encephalopathy K72.90 Abdominal pain R10.84 Abdominal location: generalized Sepsis A41.9; R65.20; G93.40 Sepsis type: sepsis due to unspecified organism Sepsis acute organ dysfunction status: with acute organ dysfunction Severe sepsis acute organ dysfunction type: encephalopathy Severe sepsis shock status: without septic shock End stage liver disease K72.90 Diabetes E08.40; Z79.4 Diabetes mellitus type: due to underlying condition Diabetes mellitus penitentiary insulin use: with termite technician use Diabetes mellitus complication status: with neurologic complications Diabetes mellitus complication detail: with unspecified neuropathy COPD (chronic obstructive pulmonary disease) J43.9 COPD type: emphysema Emphysema type: unspecified Anxiety F41.9 Morbid obesity with BMI of 40.0-44.9, adult E66.01; Z68.41
[2019-12-20 11:17] LABS: Glucose Point of Care 466 mg/dL (70-110)
--- NOTE | 2019-12-20 11:58 | P.TS_ITS ---
Transfer Summary Providers Date of Admission: 12/18/19 19:13 Date of Discharge: 12/20/19 Attending Provider at Admission: Adrian Ha MD Attending Provider at Transfer: Adrian Ha MD Primary Care Provider: Alex Beckwith MD Anticipated Date of Transfer: Anticipated date of transfer: 12/20/19 Receiving Facility & Provider: Receiving Provider: [] Receiving facility: [] Diagnoses at Discharge Discharge Diagnosis (1) Hepatic encephalopathy: Status: Acute (2) Abdominal pain: Status: Acute Qualifiers: Abdominal location: generalized Qualified Code(s): R10.84 - Generalized abdominal pain (3) Sepsis: Status: Acute Qualifiers: Sepsis type: sepsis due to unspecified organism Sepsis acute organ dysfunction status: with acute organ dysfunction Severe sepsis acute organ dy sfunction type: encephalopathy Severe sepsis shock status: without septic shock Qualified Code(s): A41.9 - Sepsis, unspecified organism; R65.20 - Severe sepsis without septic shock; G93.40 - Encephalopathy, unspecified (4) End stage liver disease: Status: Chronic Permanent problem details: with ascites (periodic paracentesis), hypersplenism, thrombocytopenia, portal hypertension with left splenorenal shunt and varices noted on CT imaging, hyperammonemia (60-70), hyponatremia (upper 120s), hypoproteinemia and hyperprothrombinemia Evaluated by [facility] for liver transplant November 2019, currently pending (5) Diabetes: Status: Chronic Permanent problem details: History of such, hemoglobin A1c done on 10/22/2019 and 10/06/2019 were 5.3 and 5.5 respectively. On insulin at home. Qualifiers: Diabetes mellitus type: due to underlying condition Diabetes mellitus exterminator insulin use: with shelter use Diabetes mellitus complication status: with neurologic complications Diabetes mellitus complication detail: with unspecified neuropathy Qualified Code(s): E08.40 - Diabetes mellitus due to underlying condition with diabetic neuropathy, unspecified; Z79.4 - senior care (current) use of insulin (6) COPD (chronic obstructive pulmonary disease): Status: Chronic Qualifiers: COPD type: emphysema Emphysema type: unspecified Qualified Code(s): J43.9 - Emphysema, unspecified (7) Anxiety: Status: Chronic (8) Morbid obesity with BMI of 40.0-44.9, adult: Status: Chronic Reason for Visit Reason for Visit: SOB/heart rate of 113 Hospital Course Hospital Course: Tri is a 59-year-old white female with end-stage liver disease who presented to the hospital with confusion, abdominal pain and sepsis. She had recently been admitted at [facility] and had Serratia SBP at that time. She was under evaluation for liver transplant. On admission here IV antibiotics of cefepime and linezolid were initiated. Creatinine was noted to be elevated. She received IV fluids cautiously. The emergency department had had an paracentesis done yielding 6 L of fluid on admission. During her hospital course her confusion improved. Creatinine improved. Bilirubin stayed significantly elevated approximately 29. Fluid cultures were preliminarily negative on day of transfer, but it should be noted she was on ciprofloxacin SBP prophylaxis at home. Secondary to recurrent sepsis, end-stage liver disease, high meld score she was transferred where liver transplant services would be available to determine if she is a candidate for liver transplant, or if palliative services should be offered. White blood cell count was not significantly elevated, and her ascitic fluid. Physical Exam Narrative: EXAM NARRATIVE: See exam from earlier today Urinary Catheter Management^: Dey: Cath Placed During This Visit: yes Reason for Continuing Indwelling Catheter: Accurate Measurement of Urinary Output in Critically Ill Patients Urinary Catheter Date of Insertion: 12/19/19 Urinary Catheter Time of Insertion: 19:37 TS Data Data Completed and Pending: Completed Studies During Hospitalization Category Date Time Status XR chest 1V wander ble [id number] Stat Exams 12/18/19 15:26 Com[place]acentesis [place] bd w [id number] Stat Ultrasound 12/18/19 15:31 Completed Pending at discharge Category Date Time Status Basic Metabolic P chalo Timed Lab 12/20/19 16:46 Ordered Blood Culture Sta t Lab 12/18/19 18:17 Results Body Fluid Cultur e & GS Stat Lab 12/18/19 Results Complete Blood Co unt w/Auto AM LABS Lab 12/21/19 04:00 Ordered Comprehensive Met abolic Panel AM LA BS Lab 12/21/19 04:00 Ordered Prothrombin Time INR AM LABS Lab 12/21/19 04:00 Ordered Labs from last 24 hours 12/20/19 12/20/19 12/20/19 11:02 06:18 05:09 WBC RBC Hgb Hct MCV MCH MCHC RDW Plt Count MPV Neut % (Auto) Lymph % (Auto) Irwin % (Auto) Eos % (Auto) Baso % (Auto) Neut # (Auto) Lymph # (Auto) Irwin # (Auto) Eos # (Auto) Baso # (Auto) Nucleated RBC % (a uto) Nucleated RBCs # PT INR Specimen Type Sample Site ABG pH ABG pCO2 ABG pO2 ABG HCO3 ABG Base Excess Baljinder Test Hematocrit O2 Delivery Device O2 Liters/Min Assistant Store Manager Operations ID Sodium Potassium Chloride Carbon Dioxide Anion Gap BUN Creatinine GFR Calculation Glucose POC Glucose 466 149 Calculated Osmolal ity Calcium Total Bilirubin AST ALT Alkaline Phosphata se Ammonia 96 H Total Protein Albumin Globulin 12/20/19 12/20/19 12/20/19 05:09 05:09 05:09 WBC 7.1 RBC 2.85 L Hgb 8.7 L Hct 27.9 L MCV 97.9 MCH 30.5 MCHC 31.2 RDW 20.6 H Plt Count 47 L MPV 10.5 H Neut % (Auto) 80.2 Lymph % (Auto) 3.4 Irwin % (Auto) 9.6 Eos % (Auto) 4.0 Baso % (Auto) 0.8 Neut # (Auto) 5.66 Lymph # (Auto) 0.2 L Irwin # (Auto) 0.7 Eos # (Auto) 0.3 Baso # (Auto) 0.1 Nucleated RBC % (a uto) 0 Nucleated RBCs # 0.0 PT 23.50 H INR 2.01 H Specimen Type Sample Site ABG pH ABG pCO2 ABG pO2 ABG HCO3 ABG Base Excess Baljinder Test Hematocrit O2 Delivery Device O2 Liters/Min Assistant Store Manager Operations ID Sodium 124 L Potassium 5.3 H Chloride 95 L Carbon Dioxide 17 L Anion Gap 17.3 BUN 26 H Creatinine 1.1 H GFR Calculation 51.2 L Glucose 153 H POC Glucose Calculated Osmolal ity 266 L Calcium 8.9 Total Bilirubin 28.9 H* AST 61 H ALT 47 H Alkaline Phosphata se 234 H Ammonia Total Protein 4.8 L Albumin 3.7 Globulin 1.1 L 12/19/19 12/19/19 12/19/19 21:02 19:44 18:23 WBC RBC Hgb Hct MCV MCH MCHC RDW Plt Count MPV Neut % (Auto) Lymph % (Auto) Irwin % (Auto) Eos % (Auto) Baso % (Auto) Neut # (Auto) Lymph # (Auto) Irwin # (Auto) Eos # (Auto) Baso # (Auto) Nucleated RBC % (a uto) Nucleated RBCs # PT INR Specimen Type Arterial Sample Site Brachial, right ABG pH 7.38 ABG pCO2 33.1 L ABG pO2 77.9 L ABG HCO3 19.7 L ABG Base Excess -4.8 L Baljinder Test N/a Hematocrit 27.7 L O2 Delivery Device Nc O2 Liters/Min 4.0 Assistant Store Manager Operations ID Harkr Sodium Potassium Chloride Carbon Dioxide Anion Gap BUN Creatinine GFR Calculation Glucose POC Glucose 240 214 Calculated Osmolal ity Calcium Total Bilirubin AST ALT Alkaline Phosphata se Ammonia Total Protein Albumin Globulin Vitals: Last Vital Signs Temp 97.9 F 12/20/19 07:12 Pulse 93 12/20/19 08:01 Resp 14 12/20/19 08:40 BP 139/60 12/20/19 07:12 Pulse Ox 95 12/20/19 08:40 TS Medications Medications Home Medications hydroxyzine HCl 25 - 50 mg PO BEDTIME 10/05/19 [History Confirmed 12/18/19] insulin aspart U-100 [Novolog Flexpen U-100 Insulin] 20 unit SUBCUT BID 10/05/19 [History Confirmed 12/18/19] magnesium oxide [MagOx] 400 mg PO DAILY 10/05/19 [History Confirmed 12/18/19] ondansetron HCl [Zofran] 8 mg PO Q6H PRN 10/05/19 [History Confirmed 12/18/19] potassium chloride 20 meq PO DAILY 10/05/19 [History Confirmed 12/18/19] tizanidine 2 mg PO BEDTIME 10/05/19 [History Confirmed 12/18/19] oxycodone 5 mg capsule 5 mg PO Q8H PRN 30 Days #60 cap 10/22/19 [Rx Confirmed 12/18/19] aripiprazole 5 mg tablet 5 mg PO DAILY #30 tab 11/05/19 [Rx Confirmed 12/18/19] pantoprazole 40 mg tablet,delayed release 40 mg PO DAILY #90 tab 11/05/19 [Rx C onfirmed 12/18/19] Anti-Diarrheal (loperamide) See Rx Instructions .ROUTE .COMPLEX 11/17/19 [History Confirmed 12/18/19] propylene glycol [Systane Complete] See Rx Instructions .ROUTE .COMPLEX 11/17/19 [History Confirmed 12/18/19] cholecalciferol (vitamin D3) [Vitamin D3] 50 mcg PO DAILY 12/18/19 [History Confirmed 12/18/19] ciprofloxacin HCl 500 mg PO DAILY 12/18/19 [History Confirmed 12/18/19] midodrine 15 mg PO TID 12/18/19 [History Confirmed 12/18/19] simethicone 80 mg PO QID PRN 12/18/19 [History Confirmed 12/18/19] umeclidinium [Incruse Ellipta] 1 inh INHALATION DAILY 12/18/19 [History C onfirmed 12/18/19] Active Medications Albuterol/Ipratropium (Combivent Respimat) 1 puff INHALATION Q4H PRN PRN Reason: WHEEZING Last Admin: 12/20/19 07:59 Dose: 1 puff Documented by: Dextrose (D50w) 25 ml IVP ONCE PRN; Protocol PRN Reason: hypoglycemia protocol Dextrose (D50w) 50 ml IVP PRN PRN; Protocol PRN Reason: hypoglycemia protocol Glucagon (Glucagen) 1 mg IM ONCE PRN; Protocol PRN Reason: Adult Acute Hypoglycemia Prot. Linezolid (Zyvox Premix) 600 mg in 300 mls @ 300 mls/hr IV Q12H HUGO; Protocol Last Admin: 12/20/19 08:42 Dose: 300 mls/hr Documented by: Cefepime HCl 2,000 mg/ Sodium (Chloride) 50 mls @ 100 mls/hr IV Q12H HUGO; Protocol Last Admin: 12/20/19 10:06 Dose: 100 mls/hr Documented by: Dextrose (D5w) 500 mls @ 100 mls/hr IV ONCE PRN; Protocol PRN Reason: Adult Acute Hypoglycemia Prot Insulin Aspart (Novolog) 0 unit SUBCUT BEDTIME HUGO; Protocol Last Admin: 12/19/19 21:16 Dose: 3 unit Documented by: Insulin Aspart (Novolog) 0 unit SUBCUT TIDWM HUGO; Protocol Last Admin: 12/20/19 08:41 Dose: 2 unit Documented by: Lactulose (Constulose) 20 gm PO Q6H HUGO Last Admin: 12/20/19 04:43 Dose: Not Given Documented by: Midodrine (Proamatine) 15 mg PO TID HUGO Last Admin: 12/20/19 08:40 Dose: 15 mg Documented by: Ondansetron HCl (Zofran) 4 mg IVP Q6H PRN PRN Reason: NAUSEA AND VOMITING Last Admin: 12/18/19 20:36 Dose: 4 mg Documented by: Oxycodone HCl (Oxycodone Ir) 5 mg PO Q6H PRN PRN Reason: MODERATE PAIN Last Admin: 12/20/19 08:40 Dose: 5 mg Documented by: Pantoprazole Sodium (Protonix) 40 mg PO DAILY [facility] Last Admin: 12/20/19 08:40 Dose: 40 mg Documented by: Rifaximin (Xifaxan) 550 mg PO BID [facility]; Protocol Discharge Plan Discharge Patient Disposition: Xfer Short-Term Hosp Condition: Stable Prescriptions: No Action oxycodone 5 mg capsule 5 mg PO Q8H PRN (Reason: pain) 30 Days Qty: 60 RF: 0 pantoprazole [Protonix] 40 mg tablet,delayed release (DR/EC) 40 mg PO DAILY Qty: 90 RF: 3 aripiprazole [Abilify] 5 mg tablet 5 mg PO DAILY Qty: 30 RF: 6 tizanidine 2 mg Tablet 2 mg PO BEDTIME RF: 0 ondansetron HCl [Zofran] 4 mg Tablet 8 mg PO Q6H PRN (Reason: Nausea) RF: 0 magnesium oxide [MagOx] 400 mg (241.3 mg magnesium) Tablet 400 mg PO DAILY RF: 0 hydroxyzine HCl 25 mg Tablet 25 - 50 mg PO BEDTIME RF: 0 insulin aspart U-100 [Novolog Flexpen U-100 Insulin] 100 unit/mL (3 mL) Insulin Pen 20 unit SUBCUT BID RF: 0 potassium chloride 20 mEq Tablet Extended Release 20 meq PO DAILY RF: 0 Anti-Diarrheal (loperamide) See Rx Instructions .ROUTE .COMPLEX RF: 0 Systane Complete 0.6 % Drops See Rx Instructions .ROUTE .COMPLEX RF: 0 midodrine 5 mg Tablet 15 mg PO TID RF: 0 ciprofloxacin HCl 500 mg Tablet 500 mg PO DAILY RF: 0 simethicone 80 mg Tablet,Chewable 80 mg PO QID PRN (Reason: FLATULANCE) RF: 0 Vitamin D3 50 mcg (2,000 unit) Tablet 50 mcg PO DAILY RF: 0 Incruse Ellipta 62.5 mcg/actuation Blister With Device 1 inh INHALATION DAILY RF: 0 Discharge Orders: Transfer Out of Facility (Order); Ordered 12/20/19 Ordered By: Adrian Ha Transfer Attestations Time Spent in Transfer Care*: greater than 30 min Status at Transfer: Cognitive status at transfer: cognitively intact , Behavioral status at transfer: cooperative , Quality Metrics Clinical Quality Measures: During this hospital stay, did patient experience: None Coding Level of Care Code Acute Loan Assistant for Chg Fwd Diagnoses Hepatic encephalopathy K72.90 Abdominal pain R10.84 Abdominal location: generalized Sepsis A41.9; R65.20; G93.40 Sepsis type: sepsis due to unspecified organism Sepsis acute organ dysfunction status: with acute organ dysfunction Severe sepsis acute organ dysfunction type: encephalopathy Severe sepsis shock status: without septic shock End stage liver disease K72.90 Diabetes E08.40; Z79.4 Diabetes mellitus type: due to underlying condition Diabetes mellitus exterminator insulin use: with exterminator use Diabetes mellitus complication status: with neurologic complications Diabetes mellitus complication detail: with unspecified neuropathy COPD (chronic obstructive pulmonary disease) J43.9 COPD type: emphysema Emphysema type: unspecified Anxiety F41.9 Morbid obesity with BMI of 40.0-44.9, adult E66.01; Z68.41
--- NOTE | 2019-12-20 11:58 | PC.CHAP ---
Pastoral Care Encounter/Spiritual Assessment Type of Contact [] Declined delivery and mail sorter visit [] Patient/Family/Request visit [] Outpatient visit [] Follow-up visit [] Physician referral [] Code/Alert [] Routine visit [] Staff referral [] Actively dying [] Patient sleeping [] Family support [] [] Out of room [] Palliative care [] [X] Receiving care in room [] Pre-surgical visit [] Trauma [] Long length of stay [] ICU visit [] Other: Relational/Emotional Strength [] Patient feels connected with others/family/visitors/staff [] Distress [] Loneliness/isolation [] Abandonment Spirituality of Patient [] Person of Melita [] Attends Mandaen of their Melita [] Believes in Prayer [] Reads Bible or Restorationist materials [] There are Spiritual issues to be addressed Lead Application Architect Interventions [] Prayer [] Active listening [] Non-anxious presence [] Spiritual/emotional support [] Crisis/trauma care [] Spiritual counseling [] Bereavement support [] Provided bereavement packet [] Provided Bible/devotional materials [] Provided toy/stuffed animal, coloring book to patient or family member [] Provided Communion [] Anointing/[place] [] Salvation [] Completed spiritual assessment [] Other: Impact on Illness or Injury [] Angry [] Fearful [] Anxious [] Often cries [] Exhaustion [] Unable to work [] Unable to attend rastafari [] Unable to walk/stand [] Unable to read [] Unable to drive [] Unable to eat/drink [] Unable to sleep [] Unable to be with family [] Patient intubated [] Other: Summary Time spent with patient
[2019-12-20] MEDS: lactulose oral liq 20 gm/30 mL UDC PO ×2 (12:14)
--- NOTE | 2019-12-20 12:20 | PC.NURSE ---
Pt notified on bed availability and transfer to [facility] I asked pt if she knows she is going to be transferred and if she is okay with it, pt signed the form.
[2019-12-20 13:13] LABS: Glucose Point of Care 256 mg/dL (70-110)
--- NOTE | 2019-12-20 13:23 | PC.NURSE ---
Addendum entered by Nestor Medina RN 12/20/19 15:52: 1332-Informed nurse that pt has a patent Peripheral IV on right FA and Dey catheter in secured w/stat lock. Original Note: report called to [facility] Hand off report to nurse at [facility].
--- NOTE | 2019-12-20 15:41 | PC.NURSE ---
Addendum entered by Nestor Medina RN 12/20/19 15:48: Trasnferred to different facility with [facility] ground ambulance via stretcher/gurney. Original Note: [facility] transport For transfer to [facility].
== END 2019-12-20 15:51 | disposition short-term general hospital (02) | DRG 871 ==
LOC: ER 15:25 → ICU 19:30 → CSU 12-19 02:43
PROVIDERS: Hospitalist; Admitting Provider Internal Medicine; Emergency Provider Family Medicine; PCP Internal Medicine; Visit Provider Internal Medicine
DX: A41.9 Sepsis, unspecified organism (principal); K65.2 Spontaneous bacterial peritonitis; N17.9 Acute kidney failure, unspecified; E87.1 Hypo-osmolality and hyponatremia; K76.6 Portal hypertension; Z68.41 Body mass index [BMI] 40.0-44.9, adult; E87.2 Acidosis; R65.20 Severe sepsis without septic shock; K72.90 Hepatic failure, unspecified without coma; E27.9 Disorder of adrenal gland, unspecified; F41.9 Anxiety disorder, unspecified; J43.9 Emphysema, unspecified; E11.9 Type 2 diabetes mellitus without complications; Z86.19 Personal history of other infectious and parasitic diseases; F17.210 Nicotine dependence, cigarettes, uncomplicated; E87.5 Hyperkalemia; D69.59 Other secondary thrombocytopenia; E66.01 Morbid (severe) obesity due to excess calories; D53.9 Nutritional anemia, unspecified
CPT/HCPCS: 12345; 36415; 36416; 36600; 49083; 51702; 71045; 80051; 80053; 81001; 82140; 82330; 82803; 82805; 82962; 83605; 83690; 83735; 83880; 84484; 85025; 85378; 85610; 87040; 87070; 87075; 87205; 89050; 93005; 94640; 96372; 96375; 99284; J0692; J1170; J1815; J1940; J2020; J2405; J3535; J7030; P9047